=== PATIENT | male | born 1960 | race Caucasian/White ===

== ENCOUNTER 2018-05-25 13:29 | Inpatient (IN) ==
[2018-05-25 14:25] LABS: Basophils % 0.5 % (0.0-0.8); Eosinophils # 0.1 10*3/uL (0.0-0.87); Eosinophils % 1.5 % (0.00-10.9); Hematocrit 45.9 VOL% (42.0-52.0); Hemoglobin 14.3 GM/DL (14.0-18.0); Immature Granulocytes % 0.2 %; Immature Granulocytes Absolute 0.02 #; Lymphocytes # 0.9 10*3/uL (1.4-4.0); Lymphocytes % 10.3 % (21.2-54.2); Mean Corpuscular HGB Conc 31.2 GM/DL (32-36); Mean Corpuscular Hemoglobin 26 PG (27-34); Mean Corpuscular Volume 82.1 FL (87-102); Mean Platelet Volume 10.9 FL (9.6-12.0); Monocytes # 0.7 10*3/uL (0.11-0.8); Monocytes % 8.1 % (1.7-12.7); Neutrophils # 6.6 10*3/uL (1.4-7.4); Neutrophils % 79.4 % (38.7-73.9); Platelet Count 250 T/CUMM (130-400); Red Blood Count 5.59 MC/CUMM (3.8-5.5); Red Cell Distribution Width 16.6 % (9.3-17.3); White Blood Count 8.3 T/CUMM (4-12)
[2018-05-25 14:36] LABS: PT Patient Result 10.7 SECS; Partial Thromboplastin Time 28.1 SECS (0-40)
[2018-05-25 14:47] LABS: Albumin 3.5 G/DL (3.4-5.0); Bilirubin,Total 0.5 MG/DL (0.2-1.0); Calcium 8.7 MG/DL (8.5-10.1); Osmolality,Calculated 279.2 MOS/KG (273-304); Potassium 4.1 MMOL/L (3.5-5.1); Total Protein 7.6 G/DL (6.4-8.3)
[2018-05-25] MEDS ORDERED: MAGNESIUM SULF RIDER 2 GM in PREMIX 1 EACH IV PRN (16:07)
[2018-05-25] MEDS ORDERED: POTASSIUM CHLORIDE RIDER 10 MEQ in PREMIX 1 EACH IV PRN (16:07)
[2018-05-25] MEDS ORDERED: MAGNESIUM SULF RIDER 4 GM in PREMIX 1 EACH IV PRN (16:07)
[2018-05-25] MEDS ORDERED: GLUCAGON 1 MG VIAL IM PRN (16:14)
[2018-05-25] MEDS ORDERED: ACETAMINOPHEN 325 MG TABLET PO PRN (16:17)
[2018-05-25] MEDS ORDERED: ZALEPLON 5 MG CAPSULE PO PRN (16:17)
[2018-05-25] MEDS ORDERED: diphenhydrAMINE CAP 25 MG CAPSULE PO PRN (16:17)
[2018-05-25] MEDS: INSULIN REGULAR 100 UNIT/ML SUBCUT SCH ×2 (16:30→21:25)
[2018-05-25] MEDS ORDERED: INSULIN GLARGINE 100 UNIT/ML SUBCUT SCH (16:30)
[2018-05-25] MEDS ORDERED: FUROSEMIDE 40 MG/4 ML VIAL IV SCH ×2 (16:30→21:00)
[2018-05-25 16:41] LABS: Risk Ratio 2.93; VLDL CHOLESTEROL 43.2 MG/DL
[2018-05-25] MEDS ORDERED: NITROGLYCERIN SL 0.4 MG TABLET SL PRN (18:03)
[2018-05-25] MEDS: HEPARIN 5,000 UNIT/1 ML VIAL SUBCUT SCH (21:03)
[2018-05-25] MEDS: TRIAMCINOLONE 0.1% CREAM 15 GM TUBE TOP SCH (21:15)
[2018-05-25] MEDS: POTASSIUM CHLORIDE 20 MEQ TABLET PO SCH (21:16)
[2018-05-25] MEDS: FLUOCINONIDE E 0.05% CREAM 15 GM TUBE TOP SCH (21:16)
[2018-05-25] MEDS: TICAGRELOR 90 MG TABLET PO SCH (21:16)
[2018-05-25] MEDS: PREGABALIN 75 MG CAPSULE PO SCH (21:16)
[2018-05-25] MEDS: DOCUSATE SODIUM 100 MG CAPSULE PO SCH (21:16)
[2018-05-25] MEDS: guaiFENesin/DM ER 600-30 MG TABLET PO PRN (21:17)
[2018-05-25] MEDS: ALBUTEROL 2.5 MG/3 ML NEB RESP TX PRN (22:00)
[2018-05-25] MEDS: LORazepam 1 MG TABLET PO PRN (22:23)
[2018-05-26] MEDS: ALBUTEROL 2.5 MG/3 ML NEB RESP TX PRN ×6 (02:43→23:34)
[2018-05-26] MEDS: HEPARIN 5,000 UNIT/1 ML VIAL SUBCUT SCH ×3 (04:55→20:55)
[2018-05-26 05:26] LABS: Basophils % 0.5 % (0.0-0.8); Eosinophils # 0.2 10*3/uL (0.0-0.87); Eosinophils % 2.7 % (0.00-10.9); Hematocrit 42.8 VOL% (42.0-52.0); Hemoglobin 13.2 GM/DL (14.0-18.0); Immature Granulocytes % 0.1 %; Immature Granulocytes Absolute 0.01 #; Lymphocytes # 1.1 10*3/uL (1.4-4.0); Lymphocytes % 13.4 % (21.2-54.2); Mean Corpuscular HGB Conc 30.8 GM/DL (32-36); Mean Corpuscular Hemoglobin 26 PG (27-34); Mean Corpuscular Volume 83.3 FL (87-102); Mean Platelet Volume 10.8 FL (9.6-12.0); Monocytes # 0.8 10*3/uL (0.11-0.8); Monocytes % 10.6 % (1.7-12.7); Neutrophils # 5.7 10*3/uL (1.4-7.4); Neutrophils % 72.7 % (38.7-73.9); Platelet Count 236 T/CUMM (130-400); Red Blood Count 5.14 MC/CUMM (3.8-5.5); Red Cell Distribution Width 16.5 % (9.3-17.3); White Blood Count 7.8 T/CUMM (4-12)
[2018-05-26] MEDS: FUROSEMIDE 40 MG/4 ML VIAL IV SCH ×2 (05:41→14:51)
[2018-05-26 05:42] LABS: Albumin 3.4 G/DL (3.4-5.0); Bilirubin,Total 1.2 MG/DL (0.2-1.0); Calcium 8.7 MG/DL (8.5-10.1); Potassium 3.9 MMOL/L (3.5-5.1)
[2018-05-26] MEDS ORDERED: INSULIN LISPRO 100 UNIT/ML SUBCUT SCH (08:00)
[2018-05-26] MEDS: INSULIN REGULAR 100 UNIT/ML SUBCUT SCH ×4 (08:25→21:01)
[2018-05-26] MEDS: FLUTICASONE 50 MCG NASAL SPRAY 16 GM BOTTLE BOTH NARES SCH (08:55)
[2018-05-26] MEDS: PREGABALIN 75 MG CAPSULE PO SCH ×2 (08:55→21:10)
[2018-05-26] MEDS: guaiFENesin/DM ER 600-30 MG TABLET PO PRN ×2 (08:55→21:09)
[2018-05-26] MEDS: ASPIRIN CHEW 81 MG TABLET PO SCH (08:55)
[2018-05-26] MEDS: ATORVASTATIN 80 MG TABLET PO SCH (08:55)
[2018-05-26] MEDS: POTASSIUM CHLORIDE 20 MEQ TABLET PO SCH ×2 (08:56→21:09)
[2018-05-26] MEDS: metFORMIN 500 MG TABLET PO SCH ×2 (08:56→17:30)
[2018-05-26] MEDS: PANTOPRAZOLE 40 MG TABLET PO SCH (08:56)
[2018-05-26] MEDS: ISOSORBIDE MONONITRATE 30 MG TABLET PO SCH (08:57)
[2018-05-26] MEDS: LORATADINE 10 MG TABLET PO SCH (08:57)
[2018-05-26] MEDS: LORazepam 1 MG TABLET PO PRN ×2 (08:57→23:21)
[2018-05-26] MEDS: LOSARTAN 25 MG TABLET PO SCH (08:57)
[2018-05-26] MEDS: MOISTURIZING CREAM (EUCERIN) 113 GM JAR TOP SCH (08:58)
[2018-05-26] MEDS: TICAGRELOR 90 MG TABLET PO SCH ×2 (08:58→21:09)
[2018-05-26] MEDS: TRIAMCINOLONE 0.1% CREAM 15 GM TUBE TOP SCH ×2 (08:59→21:13)
[2018-05-26] MEDS: FLUOCINONIDE E 0.05% CREAM 15 GM TUBE TOP SCH ×2 (08:59→21:13)
[2018-05-26] MEDS ORDERED: METOPROLOL SUCCINATE XL 50 MG TABLET PO SCH (09:00)
[2018-05-26] MEDS: DOCUSATE SODIUM 100 MG CAPSULE PO SCH ×2 (09:01→21:09)
[2018-05-26] MEDS: HUMULIN R U-500 SQ SCH ×2 (12:38→16:36)
[2018-05-26] MEDS: MONTELUKAST 10 MG TABLET PO SCH (21:09)
[2018-05-27] MEDS: BENZONATATE 100 MG CAPSULE PO PRN (00:24)
[2018-05-27] MEDS: ALBUTEROL 2.5 MG/3 ML NEB RESP TX PRN ×5 (03:20→23:07)
[2018-05-27] MEDS: HEPARIN 5,000 UNIT/1 ML VIAL SUBCUT SCH ×2 (04:37→15:55)
[2018-05-27 05:30] LABS: Basophils % 0.5 % (0.0-0.8); Eosinophils # 0.2 10*3/uL (0.0-0.87); Eosinophils % 2.6 % (0.00-10.9); Hematocrit 44.3 VOL% (42.0-52.0); Hemoglobin 13.5 GM/DL (14.0-18.0); Immature Granulocytes % 0.5 %; Immature Granulocytes Absolute 0.03 #; Lymphocytes % 15.4 % (21.2-54.2); Mean Corpuscular HGB Conc 30.5 GM/DL (32-36); Mean Corpuscular Hemoglobin 26 PG (27-34); Mean Corpuscular Volume 83.9 FL (87-102); Mean Platelet Volume 11.2 FL (9.6-12.0); Monocytes # 0.8 10*3/uL (0.11-0.8); Monocytes % 11.8 % (1.7-12.7); Neutrophils # 4.6 10*3/uL (1.4-7.4); Neutrophils % 69.2 % (38.7-73.9); Platelet Count 211 T/CUMM (130-400); Red Blood Count 5.28 MC/CUMM (3.8-5.5); Red Cell Distribution Width 16.9 % (9.3-17.3); White Blood Count 6.6 T/CUMM (4-12)
[2018-05-27 05:45] LABS: Albumin 3.4 G/DL (3.4-5.0); Bilirubin,Total 0.8 MG/DL (0.2-1.0); Osmolality,Calculated 269.2 MOS/KG (273-304); Potassium 3.9 MMOL/L (3.5-5.1); Total Protein 7.6 G/DL (6.4-8.3)
[2018-05-27 07:06] LABS: Hypochromasia 1+; Ovalocytes Slight; Platelet Estimate Adequate
[2018-05-27] MEDS: TICAGRELOR 90 MG TABLET PO SCH ×2 (08:55→22:18)
[2018-05-27] MEDS: LORazepam 1 MG TABLET PO PRN (08:56)
[2018-05-27] MEDS: DOCUSATE SODIUM 100 MG CAPSULE PO SCH ×2 (08:57→22:18)
[2018-05-27] MEDS: NEBIVOLOL 5 MG TABLET PO SCH (08:57)
[2018-05-27] MEDS: ISOSORBIDE MONONITRATE 30 MG TABLET PO SCH (08:57)
[2018-05-27] MEDS: POTASSIUM CHLORIDE 20 MEQ TABLET PO SCH ×2 (08:57→22:18)
[2018-05-27] MEDS: LORATADINE 10 MG TABLET PO SCH (08:57)
[2018-05-27] MEDS: PREGABALIN 75 MG CAPSULE PO SCH ×2 (08:57→22:17)
[2018-05-27] MEDS: PANTOPRAZOLE 40 MG TABLET PO SCH (08:57)
[2018-05-27] MEDS: ASPIRIN CHEW 81 MG TABLET PO SCH (08:57)
[2018-05-27] MEDS: ATORVASTATIN 80 MG TABLET PO SCH (08:57)
[2018-05-27] MEDS: LOSARTAN 25 MG TABLET PO SCH (08:58)
[2018-05-27] MEDS: TRIAMCINOLONE 0.1% CREAM 15 GM TUBE TOP SCH ×2 (08:59→22:18)
[2018-05-27] MEDS: INSULIN REGULAR 100 UNIT/ML SUBCUT SCH ×4 (08:59→22:19)
[2018-05-27] MEDS: HUMULIN R U-500 SQ SCH ×3 (08:59→17:27)
[2018-05-27] MEDS: FLUTICASONE 50 MCG NASAL SPRAY 16 GM BOTTLE BOTH NARES SCH (09:00)
[2018-05-27] MEDS ORDERED: FUROSEMIDE 40 MG/4 ML VIAL IV SCH (09:00)
[2018-05-27] MEDS: FLUOCINONIDE E 0.05% CREAM 15 GM TUBE TOP SCH ×2 (09:00→22:18)
[2018-05-27] MEDS: MOISTURIZING CREAM (EUCERIN) 113 GM JAR TOP SCH (09:01)
[2018-05-27] MEDS: LORazepam 1 MG TABLET PO SCH ×2 (15:56→22:17)
[2018-05-27] MEDS: FUROSEMIDE 40 MG/4 ML VIAL IV SCH (15:56)
[2018-05-27] MEDS: MONTELUKAST 10 MG TABLET PO SCH (22:17)
[2018-05-28 05:29] LABS: Basophils # 0.1 10*3/uL (0.0-0.2); Basophils % 0.7 % (0.0-0.8); Eosinophils # 0.2 10*3/uL (0.0-0.87); Eosinophils % 2.2 % (0.00-10.9); Hematocrit 42.2 VOL% (42.0-52.0); Immature Granulocytes % 0.4 %; Immature Granulocytes Absolute 0.03 #; Lymphocytes # 0.9 10*3/uL (1.4-4.0); Mean Corpuscular HGB Conc 30.8 GM/DL (32-36); Mean Corpuscular Hemoglobin 26 PG (27-34); Mean Corpuscular Volume 84.1 FL (87-102); Mean Platelet Volume 10.9 FL (9.6-12.0); Monocytes # 0.9 10*3/uL (0.11-0.8); Monocytes % 11.8 % (1.7-12.7); Neutrophils # 5.4 10*3/uL (1.4-7.4); Neutrophils % 72.9 % (38.7-73.9); Platelet Count 217 T/CUMM (130-400); Red Blood Count 5.02 MC/CUMM (3.8-5.5); Red Cell Distribution Width 16.8 % (9.3-17.3); White Blood Count 7.4 T/CUMM (4-12)
[2018-05-28 05:31] LABS: Potassium 4.2 MMOL/L (3.5-5.1)
[2018-05-28 05:33] LABS: Albumin 3.1 G/DL (3.4-5.0); Bilirubin,Total 0.6 MG/DL (0.2-1.0); Calcium 9.1 MG/DL (8.5-10.1); Osmolality,Calculated 274.1 MOS/KG (273-304); Potassium 4.1 MMOL/L (3.5-5.1); Total Protein 7.1 G/DL (6.4-8.3)
[2018-05-28] MEDS: ALBUTEROL 2.5 MG/3 ML NEB RESP TX PRN ×5 (07:10→23:00)
[2018-05-28] MEDS: HUMULIN R U-500 SQ SCH ×3 (08:37→16:30)
[2018-05-28] MEDS: ENOXAPARIN 40 MG/0.4 ML SYRINGE SUBCUT SCH (08:38)
[2018-05-28] MEDS: INSULIN REGULAR 100 UNIT/ML SUBCUT SCH ×4 (08:38→21:21)
[2018-05-28] MEDS: FUROSEMIDE 40 MG/4 ML VIAL IV SCH ×2 (08:39→15:53)
[2018-05-28] MEDS: POTASSIUM CHLORIDE 20 MEQ TABLET PO SCH ×2 (08:39→21:22)
[2018-05-28] MEDS: PREGABALIN 75 MG CAPSULE PO SCH ×2 (08:39→21:23)
[2018-05-28] MEDS: LORazepam 1 MG TABLET PO SCH ×3 (08:40→21:22)
[2018-05-28] MEDS: NEBIVOLOL 5 MG TABLET PO SCH (08:40)
[2018-05-28] MEDS: DOCUSATE SODIUM 100 MG CAPSULE PO SCH ×2 (08:40→21:21)
[2018-05-28] MEDS: TICAGRELOR 90 MG TABLET PO SCH ×2 (08:40→21:22)
[2018-05-28] MEDS: PANTOPRAZOLE 40 MG TABLET PO SCH (08:40)
[2018-05-28] MEDS: ATORVASTATIN 80 MG TABLET PO SCH (08:40)
[2018-05-28] MEDS: LOSARTAN 25 MG TABLET PO SCH (08:40)
[2018-05-28] MEDS: LORATADINE 10 MG TABLET PO SCH (08:40)
[2018-05-28] MEDS: ASPIRIN CHEW 81 MG TABLET PO SCH (08:40)
[2018-05-28] MEDS: TRIAMCINOLONE 0.1% CREAM 15 GM TUBE TOP SCH ×2 (08:52→21:24)
[2018-05-28] MEDS: MOISTURIZING CREAM (EUCERIN) 113 GM JAR TOP SCH (08:52)
[2018-05-28] MEDS: FLUOCINONIDE E 0.05% CREAM 15 GM TUBE TOP SCH ×2 (08:52→21:24)
[2018-05-28] MEDS: FLUTICASONE 50 MCG NASAL SPRAY 16 GM BOTTLE BOTH NARES SCH (08:52)
[2018-05-28 11:10] LABS: Apearance,Urine CLEAR (Clear); Bilirubin,Urine Negative (Negative); Blood, Urine Negative (Negative); Glucose,Urine (UA) 150 mg/dL (Negative); Ketones,Urine Negative (Negative); Mucus,Urine Occasional /LPF (Occasional); Nitrite,Urine Negative (Negative); Protein,Urine Negative; RBC,Urine <1 /HPF (0-4); Urine Color Colorless (Yellow); Urine Specific Gravity 1.005 (1.001-1.035); Urine Urobilinogen < 2.0 EU/DL (0.2-1.0); WBC,Urine <1 /HPF (0-6)
[2018-05-28] MEDS ORDERED: EPINEPHrine 1 MG/ML VIAL ONE (11:11)
[2018-05-28] MEDS: MONTELUKAST 10 MG TABLET PO SCH (21:22)
[2018-05-29] MEDS: ALBUTEROL 2.5 MG/3 ML NEB RESP TX PRN ×6 (03:00→23:00)
[2018-05-29] MEDS: ONDANSETRON 4 MG/2 ML VIAL IV PRN (05:11)
[2018-05-29] MEDS: INSULIN REGULAR 100 UNIT/ML SUBCUT SCH ×4 (07:52→20:33)
[2018-05-29] MEDS: HUMULIN R U-500 SQ SCH ×3 (08:20→16:03)
[2018-05-29] MEDS: NEBIVOLOL 5 MG TABLET PO SCH (08:48)
[2018-05-29] MEDS: ASPIRIN CHEW 81 MG TABLET PO SCH (08:48)
[2018-05-29] MEDS: LORATADINE 10 MG TABLET PO SCH (08:48)
[2018-05-29] MEDS: LOSARTAN 25 MG TABLET PO SCH (08:48)
[2018-05-29] MEDS: POTASSIUM CHLORIDE 20 MEQ TABLET PO SCH ×2 (08:48→20:33)
[2018-05-29] MEDS: LORazepam 1 MG TABLET PO SCH ×2 (08:48→20:32)
[2018-05-29] MEDS: PANTOPRAZOLE 40 MG TABLET PO SCH (08:48)
[2018-05-29] MEDS: DOCUSATE SODIUM 100 MG CAPSULE PO SCH ×2 (08:48→20:33)
[2018-05-29] MEDS: TICAGRELOR 90 MG TABLET PO SCH ×2 (08:48→20:33)
[2018-05-29] MEDS: ENOXAPARIN 40 MG/0.4 ML SYRINGE SUBCUT SCH (08:51)
[2018-05-29] MEDS: FLUTICASONE 50 MCG NASAL SPRAY 16 GM BOTTLE BOTH NARES SCH (08:54)
[2018-05-29] MEDS ORDERED: metOLazone 5 MG TABLET PO ONE (09:00)
[2018-05-29] MEDS ORDERED: methylPREDNISolone SOD SUC 125 MG/2 ML VIAL IV SCH ×2 (09:00)
[2018-05-29] MEDS: FUROSEMIDE 40 MG/4 ML VIAL IV SCH ×2 (09:02→15:57)
[2018-05-29] MEDS: MOISTURIZING CREAM (EUCERIN) 113 GM JAR TOP SCH (09:07)
[2018-05-29] MEDS: TRIAMCINOLONE 0.1% CREAM 15 GM TUBE TOP SCH ×2 (09:08→20:34)
[2018-05-29] MEDS: FLUOCINONIDE E 0.05% CREAM 15 GM TUBE TOP SCH ×2 (09:08→20:34)
[2018-05-29] MEDS: PREGABALIN 75 MG CAPSULE PO SCH ×2 (09:30→20:33)
[2018-05-29] MEDS: ATORVASTATIN 80 MG TABLET PO SCH (09:34)
[2018-05-29] MEDS: LEVOFLOXACIN INJ 500 MG in PREMIX 1 EACH IV SCH (10:17)
[2018-05-29 10:32] LABS: Troponin I < 0.015 NG/ML (0.00-0.045)
[2018-05-29 13:35] LABS: Troponin I 0.015 NG/ML (0.00-0.045)
[2018-05-29] MEDS ORDERED: LORazepam 0.5 MG TABLET PO SCH (15:00)
[2018-05-29] MEDS: MONTELUKAST 10 MG TABLET PO SCH (20:32)
[2018-05-30] MEDS: ALBUTEROL 2.5 MG/3 ML NEB RESP TX PRN ×5 (02:30→21:15)
[2018-05-30 05:40] LABS: Basophils % 0.4 % (0.0-0.8); Eosinophils # 0.1 10*3/uL (0.0-0.87); Eosinophils % 0.5 % (0.00-10.9); Hematocrit 43.7 VOL% (42.0-52.0); Hemoglobin 13.4 GM/DL (14.0-18.0); Immature Granulocytes % 0.6 %; Immature Granulocytes Absolute 0.06 #; Lymphocytes # 0.8 10*3/uL (1.4-4.0); Lymphocytes % 7.5 % (21.2-54.2); Mean Corpuscular HGB Conc 30.7 GM/DL (32-36); Mean Corpuscular Hemoglobin 26 PG (27-34); Mean Corpuscular Volume 84.5 FL (87-102); Mean Platelet Volume 10.9 FL (9.6-12.0); Monocytes # 0.9 10*3/uL (0.11-0.8); Monocytes % 8.9 % (1.7-12.7); Neutrophils # 8.7 10*3/uL (1.4-7.4); Neutrophils % 82.1 % (38.7-73.9); Platelet Count 261 T/CUMM (130-400); Red Blood Count 5.17 MC/CUMM (3.8-5.5); Red Cell Distribution Width 16.7 % (9.3-17.3); White Blood Count 10.6 T/CUMM (4-12)
[2018-05-30 06:02] LABS: Calcium 9.1 MG/DL (8.5-10.1); Potassium 3.7 MMOL/L (3.5-5.1)
[2018-05-30] MEDS ORDERED: MEPERIDINE 50 MG/1 ML VIAL IM ONE (07:00)
[2018-05-30] MEDS ORDERED: GLYCOPYRROLATE 0.4 MG/2 ML VIAL IM ONE (07:00)
[2018-05-30] MEDS ORDERED: PROMETHAZINE 25 MG/1 ML VIAL IM ONE (07:00)
[2018-05-30] MEDS ORDERED: MIDAZOLAM 2 MG/2 ML VIAL ONE (07:23)
[2018-05-30] MEDS ORDERED: LIDOCAINE 2% 20 ML VIAL RESP TX ONE (07:30)
[2018-05-30] MEDS ORDERED: LIDOCAINE 1% 20 ML VIAL MISC INJ ONE (07:30)
[2018-05-30] MEDS ORDERED: LIDOCAINE 2% VISCOUS 100 ML BOTTLE SWISH/SPIT ONE (07:30)
[2018-05-30] MEDS ORDERED: MIDAZOLAM 2 MG/2 ML VIAL IV ONE (07:30)
[2018-05-30] MEDS: DEXTROSE 50% 25 GM/50 ML VIAL IV PRN (08:47)
[2018-05-30] MEDS: LEVOFLOXACIN INJ 500 MG in PREMIX 1 EACH IV SCH (10:47)
[2018-05-30] MEDS: ENOXAPARIN 40 MG/0.4 ML SYRINGE SUBCUT SCH (10:50)
[2018-05-30] MEDS: guaiFENesin/DM ER 600-30 MG TABLET PO PRN (10:50)
[2018-05-30] MEDS: BENZONATATE 100 MG CAPSULE PO PRN (10:50)
[2018-05-30] MEDS: FUROSEMIDE 40 MG/4 ML VIAL IV SCH ×2 (10:50→16:27)
[2018-05-30] MEDS: PANTOPRAZOLE 40 MG TABLET PO SCH (10:51)
[2018-05-30] MEDS: DOCUSATE SODIUM 100 MG CAPSULE PO SCH ×2 (10:51→21:48)
[2018-05-30] MEDS: ASPIRIN CHEW 81 MG TABLET PO SCH (10:51)
[2018-05-30] MEDS: methylPREDNISolone SOD SUC 40 MG/1 ML VIAL IV SCH ×2 (10:51→16:31)
[2018-05-30] MEDS: metOLazone 5 MG TABLET PO SCH (10:51)
[2018-05-30] MEDS: NEBIVOLOL 5 MG TABLET PO SCH (10:51)
[2018-05-30] MEDS: LORATADINE 10 MG TABLET PO SCH (10:52)
[2018-05-30] MEDS: LOSARTAN 25 MG TABLET PO SCH (10:52)
[2018-05-30] MEDS: TICAGRELOR 90 MG TABLET PO SCH ×2 (10:52→21:48)
[2018-05-30] MEDS: POTASSIUM CHLORIDE 20 MEQ TABLET PO SCH ×2 (10:52→21:47)
[2018-05-30] MEDS: HUMULIN R U-500 SQ SCH ×3 (10:53→16:37)
[2018-05-30] MEDS: LORazepam 1 MG TABLET PO SCH ×3 (10:53→21:48)
[2018-05-30] MEDS: FLUTICASONE 50 MCG NASAL SPRAY 16 GM BOTTLE BOTH NARES SCH (10:54)
[2018-05-30] MEDS: MOISTURIZING CREAM (EUCERIN) 113 GM JAR TOP SCH (10:54)
[2018-05-30] MEDS: FLUOCINONIDE E 0.05% CREAM 15 GM TUBE TOP SCH ×2 (10:55→21:48)
[2018-05-30] MEDS: PREGABALIN 75 MG CAPSULE PO SCH ×2 (10:55→21:48)
[2018-05-30] MEDS: TRIAMCINOLONE 0.1% CREAM 15 GM TUBE TOP SCH ×2 (10:55→21:48)
[2018-05-30] MEDS: INSULIN REGULAR 100 UNIT/ML SUBCUT SCH ×4 (10:56→21:49)
[2018-05-30] MEDS: ATORVASTATIN 80 MG TABLET PO SCH (10:56)
[2018-05-30] MEDS: ONDANSETRON 4 MG/2 ML VIAL IV PRN (11:00)
[2018-05-30] MEDS ORDERED: MAGNESIUM CITRATE 300 ML BOTTLE PO ONE (14:59)
[2018-05-30] MEDS: MONTELUKAST 10 MG TABLET PO SCH (21:47)
[2018-05-31] MEDS: methylPREDNISolone SOD SUC 40 MG/1 ML VIAL IV SCH ×3 (01:51→18:22)
[2018-05-31] MEDS: ALBUTEROL 2.5 MG/3 ML NEB RESP TX PRN ×6 (02:15→23:19)
[2018-05-31 04:29] LABS: Basophils % 0.2 % (0.0-0.8); Eosinophils % 0.1 % (0.00-10.9); Hematocrit 41.4 VOL% (42.0-52.0); Hemoglobin 12.5 GM/DL (14.0-18.0); Immature Granulocytes % 0.4 %; Immature Granulocytes Absolute 0.04 #; Lymphocytes # 0.6 10*3/uL (1.4-4.0); Lymphocytes % 5.8 % (21.2-54.2); Mean Corpuscular HGB Conc 30.2 GM/DL (32-36); Mean Corpuscular Hemoglobin 25 PG (27-34); Mean Corpuscular Volume 83.3 FL (87-102); Mean Platelet Volume 11.2 FL (9.6-12.0); Monocytes # 0.5 10*3/uL (0.11-0.8); Monocytes % 4.8 % (1.7-12.7); Neutrophils # 8.8 10*3/uL (1.4-7.4); Neutrophils % 88.7 % (38.7-73.9); Platelet Count 262 T/CUMM (130-400); Red Blood Count 4.97 MC/CUMM (3.8-5.5); Red Cell Distribution Width 16.7 % (9.3-17.3); White Blood Count 9.9 T/CUMM (4-12)
[2018-05-31 05:01] LABS: Calcium 8.9 MG/DL (8.5-10.1); Potassium 3.8 MMOL/L (3.5-5.1)
[2018-05-31] MEDS: FUROSEMIDE 40 MG/4 ML VIAL IV SCH ×2 (10:13→15:48)
[2018-05-31] MEDS: NEBIVOLOL 5 MG TABLET PO SCH (10:14)
[2018-05-31] MEDS: ENOXAPARIN 40 MG/0.4 ML SYRINGE SUBCUT SCH (10:14)
[2018-05-31] MEDS: LORazepam 1 MG TABLET PO SCH ×3 (10:15→21:11)
[2018-05-31] MEDS: metOLazone 5 MG TABLET PO SCH (10:15)
[2018-05-31] MEDS: ATORVASTATIN 80 MG TABLET PO SCH (10:15)
[2018-05-31] MEDS: ASPIRIN CHEW 81 MG TABLET PO SCH (10:16)
[2018-05-31] MEDS: BENZONATATE 100 MG CAPSULE PO PRN (10:16)
[2018-05-31] MEDS: FLUOCINONIDE E 0.05% CREAM 15 GM TUBE TOP SCH ×2 (10:16→23:53)
[2018-05-31] MEDS: PREGABALIN 75 MG CAPSULE PO SCH ×2 (10:16→21:10)
[2018-05-31] MEDS: LORATADINE 10 MG TABLET PO SCH (10:16)
[2018-05-31] MEDS: PANTOPRAZOLE 40 MG TABLET PO SCH (10:16)
[2018-05-31] MEDS: TICAGRELOR 90 MG TABLET PO SCH ×2 (10:16→21:11)
[2018-05-31] MEDS: TRIAMCINOLONE 0.1% CREAM 15 GM TUBE TOP SCH ×2 (10:17→23:53)
[2018-05-31] MEDS: POTASSIUM CHLORIDE 20 MEQ TABLET PO SCH ×2 (10:17→21:10)
[2018-05-31] MEDS: LEVOFLOXACIN INJ 500 MG in PREMIX 1 EACH IV SCH (10:17)
[2018-05-31] MEDS: DOCUSATE SODIUM 100 MG CAPSULE PO SCH ×2 (10:18→21:10)
[2018-05-31] MEDS: LOSARTAN 25 MG TABLET PO SCH (10:18)
[2018-05-31 14:10] LABS: Myeloperoxidase Antibody < 0.2 U
[2018-05-31] MEDS: FLUTICASONE 50 MCG NASAL SPRAY 16 GM BOTTLE BOTH NARES SCH (15:49)
[2018-05-31] MEDS: INSULIN REGULAR 100 UNIT/ML SUBCUT SCH ×3 (16:41→23:54)
[2018-05-31] MEDS: HUMULIN R U-500 SQ SCH ×2 (16:42→18:49)
[2018-05-31] MEDS: MOISTURIZING CREAM (EUCERIN) 113 GM JAR TOP SCH (16:42)
[2018-05-31] MEDS: MONTELUKAST 10 MG TABLET PO SCH (21:10)
[2018-05-31] MEDS: guaiFENesin/DM ER 600-30 MG TABLET PO PRN (21:21)
[2018-06-01] MEDS: methylPREDNISolone SOD SUC 40 MG/1 ML VIAL IV SCH ×3 (02:23→16:49)
[2018-06-01] MEDS: ALBUTEROL 2.5 MG/3 ML NEB RESP TX PRN ×5 (03:19→23:33)
[2018-06-01 05:03] LABS: Basophils % 0.2 % (0.0-0.8); Hematocrit 41.8 VOL% (42.0-52.0); Hemoglobin 12.9 GM/DL (14.0-18.0); Immature Granulocytes % 0.4 %; Immature Granulocytes Absolute 0.04 #; Lymphocytes # 0.7 10*3/uL (1.4-4.0); Mean Corpuscular HGB Conc 30.9 GM/DL (32-36); Mean Corpuscular Hemoglobin 26 PG (27-34); Mean Corpuscular Volume 82.6 FL (87-102); Mean Platelet Volume 10.5 FL (9.6-12.0); Monocytes # 0.7 10*3/uL (0.11-0.8); Monocytes % 6.1 % (1.7-12.7); Neutrophils # 9.4 10*3/uL (1.4-7.4); Neutrophils % 87.3 % (38.7-73.9); Platelet Count 261 T/CUMM (130-400); Red Blood Count 5.06 MC/CUMM (3.8-5.5); Red Cell Distribution Width 16.7 % (9.3-17.3); White Blood Count 10.8 T/CUMM (4-12)
[2018-06-01 05:34] LABS: Calcium 9.7 MG/DL (8.5-10.1); Potassium 3.7 MMOL/L (3.5-5.1)
[2018-06-01] MEDS: LEVOFLOXACIN INJ 500 MG in PREMIX 1 EACH IV SCH (08:17)
[2018-06-01] MEDS: ENOXAPARIN 40 MG/0.4 ML SYRINGE SUBCUT SCH (08:18)
[2018-06-01] MEDS: FUROSEMIDE 40 MG/4 ML VIAL IV SCH ×2 (08:18→16:30)
[2018-06-01] MEDS: metOLazone 5 MG TABLET PO SCH (08:19)
[2018-06-01] MEDS: guaiFENesin/DM ER 600-30 MG TABLET PO PRN (08:19)
[2018-06-01] MEDS: ATORVASTATIN 80 MG TABLET PO SCH (08:19)
[2018-06-01] MEDS: TICAGRELOR 90 MG TABLET PO SCH ×2 (08:19→21:09)
[2018-06-01] MEDS: POTASSIUM CHLORIDE 20 MEQ TABLET PO SCH ×2 (08:19→21:09)
[2018-06-01] MEDS: ASPIRIN CHEW 81 MG TABLET PO SCH (08:20)
[2018-06-01] MEDS: LORATADINE 10 MG TABLET PO SCH (08:20)
[2018-06-01] MEDS: LORazepam 1 MG TABLET PO SCH ×3 (08:20→21:09)
[2018-06-01] MEDS: DOCUSATE SODIUM 100 MG CAPSULE PO SCH ×2 (08:20→21:09)
[2018-06-01] MEDS: NEBIVOLOL 5 MG TABLET PO SCH (08:20)
[2018-06-01] MEDS: PREGABALIN 75 MG CAPSULE PO SCH ×2 (08:20→21:09)
[2018-06-01] MEDS: TRIAMCINOLONE 0.1% CREAM 15 GM TUBE TOP SCH ×2 (08:21→21:10)
[2018-06-01] MEDS: FLUTICASONE 50 MCG NASAL SPRAY 16 GM BOTTLE BOTH NARES SCH (08:21)
[2018-06-01] MEDS: MOISTURIZING CREAM (EUCERIN) 113 GM JAR TOP SCH (08:21)
[2018-06-01] MEDS: PANTOPRAZOLE 40 MG TABLET PO SCH (08:21)
[2018-06-01] MEDS: INSULIN REGULAR 100 UNIT/ML SUBCUT SCH ×4 (08:22→21:08)
[2018-06-01] MEDS: HUMULIN R U-500 SQ SCH (08:22)
[2018-06-01] MEDS: FLUOCINONIDE E 0.05% CREAM 15 GM TUBE TOP SCH ×2 (08:22→21:10)
[2018-06-01] MEDS: LOSARTAN 25 MG TABLET PO SCH (08:30)
[2018-06-01] MEDS: INSULIN REGULAR HUMAN 70 UNIT SQ SCH (18:09)
[2018-06-01] MEDS: MONTELUKAST 10 MG TABLET PO SCH (21:09)
[2018-06-02] MEDS: methylPREDNISolone SOD SUC 40 MG/1 ML VIAL IV SCH ×3 (02:40→16:57)
[2018-06-02] MEDS: ALBUTEROL 2.5 MG/3 ML NEB RESP TX PRN ×6 (03:21→23:28)
[2018-06-02 06:05] LABS: Basophils % 0.2 % (0.0-0.8); Eosinophils % 0.1 % (0.00-10.9); Hemoglobin 13.7 GM/DL (14.0-18.0); Immature Granulocytes % 0.7 %; Immature Granulocytes Absolute 0.08 #; Lymphocytes # 0.6 10*3/uL (1.4-4.0); Lymphocytes % 5.4 % (21.2-54.2); Mean Corpuscular HGB Conc 31.9 GM/DL (32-36); Mean Corpuscular Hemoglobin 26 PG (27-34); Mean Corpuscular Volume 81.9 FL (87-102); Mean Platelet Volume 10.6 FL (9.6-12.0); Monocytes # 0.9 10*3/uL (0.11-0.8); Monocytes % 7.3 % (1.7-12.7); NRBC # 0.03 10*3/uL; Neutrophils # 10.1 10*3/uL (1.4-7.4); Neutrophils % 86.3 % (38.7-73.9); Platelet Count 287 T/CUMM (130-400); Red Blood Count 5.25 MC/CUMM (3.8-5.5); Red Cell Distribution Width 16.7 % (9.3-17.3); White Blood Count 11.7 T/CUMM (4-12)
[2018-06-02 06:40] LABS: Calcium 9.6 MG/DL (8.5-10.1); Potassium 3.7 MMOL/L (3.5-5.1)
[2018-06-02] MEDS: INSULIN REGULAR HUMAN 70 UNIT SQ SCH ×3 (09:01→16:57)
[2018-06-02] MEDS: FLUTICASONE 50 MCG NASAL SPRAY 16 GM BOTTLE BOTH NARES SCH (09:01)
[2018-06-02] MEDS: INSULIN REGULAR 100 UNIT/ML SUBCUT SCH ×4 (09:01→20:57)
[2018-06-02] MEDS: FLUOCINONIDE E 0.05% CREAM 15 GM TUBE TOP SCH ×2 (09:02→20:55)
[2018-06-02] MEDS: TRIAMCINOLONE 0.1% CREAM 15 GM TUBE TOP SCH ×2 (09:02→20:55)
[2018-06-02] MEDS: MOISTURIZING CREAM (EUCERIN) 113 GM JAR TOP SCH (09:02)
[2018-06-02] MEDS: TICAGRELOR 90 MG TABLET PO SCH ×2 (09:03→20:54)
[2018-06-02] MEDS: ASPIRIN CHEW 81 MG TABLET PO SCH (09:03)
[2018-06-02] MEDS: LOSARTAN 25 MG TABLET PO SCH (09:03)
[2018-06-02] MEDS: NEBIVOLOL 5 MG TABLET PO SCH (09:03)
[2018-06-02] MEDS: POTASSIUM CHLORIDE 20 MEQ TABLET PO SCH ×2 (09:03→20:54)
[2018-06-02] MEDS: FUROSEMIDE 40 MG/4 ML VIAL IV SCH ×2 (09:03→16:57)
[2018-06-02] MEDS: LORATADINE 10 MG TABLET PO SCH (09:04)
[2018-06-02] MEDS: ENOXAPARIN 40 MG/0.4 ML SYRINGE SUBCUT SCH (09:04)
[2018-06-02] MEDS: ATORVASTATIN 80 MG TABLET PO SCH (09:04)
[2018-06-02] MEDS: PREGABALIN 75 MG CAPSULE PO SCH ×2 (09:04→20:54)
[2018-06-02] MEDS: DOCUSATE SODIUM 100 MG CAPSULE PO SCH ×2 (09:04→20:54)
[2018-06-02] MEDS: metOLazone 5 MG TABLET PO SCH (09:04)
[2018-06-02] MEDS: PANTOPRAZOLE 40 MG TABLET PO SCH (09:04)
[2018-06-02] MEDS: LORazepam 1 MG TABLET PO SCH ×3 (09:04→21:01)
[2018-06-02] MEDS: LEVOFLOXACIN INJ 500 MG in PREMIX 1 EACH IV SCH (09:05)
[2018-06-02] MEDS: MONTELUKAST 10 MG TABLET PO SCH (20:54)
[2018-06-03] MEDS: methylPREDNISolone SOD SUC 40 MG/1 ML VIAL IV SCH ×3 (02:36→17:20)
[2018-06-03] MEDS: ALBUTEROL 2.5 MG/3 ML NEB RESP TX PRN ×5 (04:12→23:32)
[2018-06-03] MEDS: DEXTROSE 50% 25 GM/50 ML VIAL IV PRN (04:37)
[2018-06-03 05:05] LABS: Basophils % 0.1 % (0.0-0.8); Eosinophils % 0.1 % (0.00-10.9); Hematocrit 43.4 VOL% (42.0-52.0); Hemoglobin 13.3 GM/DL (14.0-18.0); Immature Granulocytes % 0.9 %; Lymphocytes % 8.3 % (21.2-54.2); Mean Corpuscular HGB Conc 30.6 GM/DL (32-36); Mean Corpuscular Hemoglobin 25 PG (27-34); Mean Corpuscular Volume 82.5 FL (87-102); Mean Platelet Volume 10.7 FL (9.6-12.0); Monocytes # 1.1 10*3/uL (0.11-0.8); Monocytes % 9.4 % (1.7-12.7); NRBC # 0.02 10*3/uL; Neutrophils # 9.5 10*3/uL (1.4-7.4); Neutrophils % 81.2 % (38.7-73.9); Platelet Count 289 T/CUMM (130-400); Red Blood Count 5.26 MC/CUMM (3.8-5.5); Red Cell Distribution Width 16.6 % (9.3-17.3); White Blood Count 11.6 T/CUMM (4-12)
[2018-06-03 05:24] LABS: Calcium 9.5 MG/DL (8.5-10.1); Osmolality,Calculated 281.7 MOS/KG (273-304); Potassium 3.3 MMOL/L (3.5-5.1)
[2018-06-03] MEDS ORDERED: POTASSIUM CHLORIDE RIDER 10 MEQ in PREMIX 1 EACH IV PRN (07:38)
[2018-06-03] MEDS ORDERED: MAGNESIUM SULF RIDER 2 GM in PREMIX 1 EACH IV PRN (07:38)
[2018-06-03] MEDS ORDERED: DEXTROSE 5% 1,000 ML IV SCH (08:00)
[2018-06-03] MEDS: INSULIN REGULAR 100 UNIT/ML SUBCUT SCH ×5 (08:33→21:45)
[2018-06-03] MEDS: LEVOFLOXACIN INJ 500 MG in PREMIX 1 EACH IV SCH (09:10)
[2018-06-03] MEDS: LOSARTAN 25 MG TABLET PO SCH (09:11)
[2018-06-03] MEDS: FLUTICASONE 50 MCG NASAL SPRAY 16 GM BOTTLE BOTH NARES SCH (09:12)
[2018-06-03] MEDS: MOISTURIZING CREAM (EUCERIN) 113 GM JAR TOP SCH (09:13)
[2018-06-03] MEDS: TRIAMCINOLONE 0.1% CREAM 15 GM TUBE TOP SCH ×2 (09:13→21:46)
[2018-06-03] MEDS: FLUOCINONIDE E 0.05% CREAM 15 GM TUBE TOP SCH ×2 (09:13→21:46)
[2018-06-03] MEDS ORDERED: LIDOCAINE 1%/EPI INJ 20 ML VIAL ONE (09:47)
[2018-06-03] MEDS ORDERED: HEPARIN/NACL 0.9% 2 UNITS/ML 1,000 ML IV ONE (09:47)
[2018-06-03] MEDS: ENOXAPARIN 40 MG/0.4 ML SYRINGE SUBCUT SCH (09:55)
[2018-06-03] MEDS ORDERED: DIAZEPAM 5 MG TABLET PO ONE (10:00)
[2018-06-03] MEDS ORDERED: diphenhydrAMINE CAP 25 MG CAPSULE PO ONE (10:00)
[2018-06-03] MEDS ORDERED: fentaNYL 100 MCG/2 ML VIAL ONE (10:27)
[2018-06-03] MEDS ORDERED: MIDAZOLAM 2 MG/2 ML VIAL ONE (10:27)
[2018-06-03] MEDS: FUROSEMIDE 40 MG/4 ML VIAL IV SCH ×2 (11:57→15:56)
[2018-06-03] MEDS: PANTOPRAZOLE 40 MG TABLET PO SCH (11:58)
[2018-06-03] MEDS: DOCUSATE SODIUM 100 MG CAPSULE PO SCH ×2 (11:58→21:46)
[2018-06-03] MEDS: POTASSIUM CHLORIDE 20 MEQ TABLET PO SCH ×2 (11:58→21:46)
[2018-06-03] MEDS: metOLazone 5 MG TABLET PO SCH (11:58)
[2018-06-03] MEDS: PREGABALIN 75 MG CAPSULE PO SCH ×2 (11:58→21:46)
[2018-06-03] MEDS: TICAGRELOR 90 MG TABLET PO SCH ×2 (11:58→21:46)
[2018-06-03] MEDS: NEBIVOLOL 5 MG TABLET PO SCH (11:59)
[2018-06-03] MEDS: LORATADINE 10 MG TABLET PO SCH (11:59)
[2018-06-03] MEDS: ATORVASTATIN 80 MG TABLET PO SCH (11:59)
[2018-06-03] MEDS: ASPIRIN CHEW 81 MG TABLET PO SCH (11:59)
[2018-06-03] MEDS: DEXTROSE 5% NACL 0.45% 1,000 ML IV SCH (12:00)
[2018-06-03] MEDS: LORazepam 1 MG TABLET PO SCH ×3 (12:15→21:46)
[2018-06-03] MEDS: INSULIN REGULAR HUMAN 70 UNIT SQ SCH (12:35)
[2018-06-03] MEDS ORDERED: SACUBITRIL/VALSARTAN 49-51 MG TABLET PO SCH (21:00)
[2018-06-03] MEDS: MONTELUKAST 10 MG TABLET PO SCH (21:46)
[2018-06-04] MEDS: methylPREDNISolone SOD SUC 40 MG/1 ML VIAL IV SCH ×3 (01:00→17:06)
[2018-06-04] MEDS: ALBUTEROL 2.5 MG/3 ML NEB RESP TX PRN ×5 (03:10→20:10)
[2018-06-04 05:17] LABS: Basophils % 0.2 % (0.0-0.8); Hematocrit 44.4 VOL% (42.0-52.0); Hemoglobin 13.7 GM/DL (14.0-18.0); Immature Granulocytes % 0.9 %; Immature Granulocytes Absolute 0.11 #; Lymphocytes # 0.7 10*3/uL (1.4-4.0); Lymphocytes % 5.6 % (21.2-54.2); Mean Corpuscular HGB Conc 30.9 GM/DL (32-36); Mean Corpuscular Hemoglobin 26 PG (27-34); Mean Corpuscular Volume 83.1 FL (87-102); Monocytes % 7.9 % (1.7-12.7); Neutrophils # 10.8 10*3/uL (1.4-7.4); Neutrophils % 85.4 % (38.7-73.9); Platelet Count 283 T/CUMM (130-400); Red Blood Count 5.34 MC/CUMM (3.8-5.5); Red Cell Distribution Width 16.8 % (9.3-17.3); White Blood Count 12.7 T/CUMM (4-12)
[2018-06-04 05:43] LABS: Calcium 9.5 MG/DL (8.5-10.1); Osmolality,Calculated 281.8 MOS/KG (273-304); Potassium 3.8 MMOL/L (3.5-5.1)
[2018-06-04] MEDS: INSULIN REGULAR 100 UNIT/ML SUBCUT SCH ×4 (08:05→22:26)
[2018-06-04] MEDS: LEVOFLOXACIN INJ 500 MG in PREMIX 1 EACH IV SCH (09:26)
[2018-06-04] MEDS: ENOXAPARIN 40 MG/0.4 ML SYRINGE SUBCUT SCH (09:27)
[2018-06-04] MEDS: DOCUSATE SODIUM 100 MG CAPSULE PO SCH ×2 (10:05→22:25)
[2018-06-04] MEDS: DEXTROSE 5% NACL 0.45% 1,000 ML IV SCH ×2 (10:05→15:07)
[2018-06-04] MEDS: SPIRONOLACTONE 25 MG TABLET PO SCH (10:05)
[2018-06-04] MEDS: POTASSIUM CHLORIDE 20 MEQ TABLET PO SCH ×2 (10:05→22:24)
[2018-06-04] MEDS: NEBIVOLOL 5 MG TABLET PO SCH (10:05)
[2018-06-04] MEDS: metOLazone 5 MG TABLET PO SCH (10:06)
[2018-06-04] MEDS: LORATADINE 10 MG TABLET PO SCH (10:06)
[2018-06-04] MEDS: SACUBITRIL/VALSARTAN 49-51 MG TABLET PO SCH ×2 (10:06→22:40)
[2018-06-04] MEDS: ATORVASTATIN 80 MG TABLET PO SCH (10:06)
[2018-06-04] MEDS: PANTOPRAZOLE 40 MG TABLET PO SCH (10:06)
[2018-06-04] MEDS: PREGABALIN 75 MG CAPSULE PO SCH ×2 (10:06→22:25)
[2018-06-04] MEDS: TICAGRELOR 90 MG TABLET PO SCH ×2 (10:06→22:25)
[2018-06-04] MEDS: TRIAMCINOLONE 0.1% CREAM 15 GM TUBE TOP SCH ×2 (10:07→22:26)
[2018-06-04] MEDS: FLUTICASONE 50 MCG NASAL SPRAY 16 GM BOTTLE BOTH NARES SCH (10:07)
[2018-06-04] MEDS: FLUOCINONIDE E 0.05% CREAM 15 GM TUBE TOP SCH ×2 (10:07→22:27)
[2018-06-04] MEDS: MOISTURIZING CREAM (EUCERIN) 113 GM JAR TOP SCH (10:07)
[2018-06-04] MEDS: FUROSEMIDE 40 MG/4 ML VIAL IV SCH ×2 (10:21→17:06)
[2018-06-04] MEDS: ASPIRIN CHEW 81 MG TABLET PO SCH (10:22)
[2018-06-04] MEDS: LORazepam 1 MG TABLET PO SCH ×3 (10:26→22:40)
[2018-06-04] MEDS: MONTELUKAST 10 MG TABLET PO SCH (22:25)
[2018-06-05] MEDS: ALBUTEROL 2.5 MG/3 ML NEB RESP TX PRN ×4 (00:20→11:05)
[2018-06-05] MEDS: methylPREDNISolone SOD SUC 40 MG/1 ML VIAL IV SCH ×2 (00:30→09:44)
[2018-06-05 05:52] LABS: Basophils % 0.2 % (0.0-0.8); Hematocrit 48.1 VOL% (42.0-52.0); Hemoglobin 14.7 GM/DL (14.0-18.0); Immature Granulocytes Absolute 0.13 #; Lymphocytes # 0.8 10*3/uL (1.4-4.0); Lymphocytes % 5.8 % (21.2-54.2); Mean Corpuscular HGB Conc 30.6 GM/DL (32-36); Mean Corpuscular Hemoglobin 25 PG (27-34); Mean Corpuscular Volume 82.6 FL (87-102); Mean Platelet Volume 10.6 FL (9.6-12.0); Monocytes % 7.2 % (1.7-12.7); Neutrophils # 11.5 10*3/uL (1.4-7.4); Neutrophils % 85.8 % (38.7-73.9); Platelet Count 282 T/CUMM (130-400); Red Blood Count 5.82 MC/CUMM (3.8-5.5); Red Cell Distribution Width 17.2 % (9.3-17.3); White Blood Count 13.4 T/CUMM (4-12)
[2018-06-05 06:28] LABS: Calcium 9.9 MG/DL (8.5-10.1); Osmolality,Calculated 280.8 MOS/KG (273-304); Potassium 3.6 MMOL/L (3.5-5.1)
[2018-06-05 06:29] LABS: Calcium 9.4 MG/DL (8.5-10.1); Osmolality,Calculated 280.8 MOS/KG (273-304); Potassium 3.7 MMOL/L (3.5-5.1)
[2018-06-05] MEDS ORDERED: metOLazone 5 MG TABLET PO PRN (07:27)
[2018-06-05] MEDS ORDERED: FUROSEMIDE 40 MG TABLET PO SCH (08:00)
[2018-06-05] MEDS: PREGABALIN 75 MG CAPSULE PO SCH (09:38)
[2018-06-05] MEDS: guaiFENesin/DM ER 600-30 MG TABLET PO PRN (09:38)
[2018-06-05] MEDS: DOCUSATE SODIUM 100 MG CAPSULE PO SCH (09:38)
[2018-06-05] MEDS: SACUBITRIL/VALSARTAN 49-51 MG TABLET PO SCH (09:38)
[2018-06-05] MEDS: ATORVASTATIN 80 MG TABLET PO SCH (09:38)
[2018-06-05] MEDS: PANTOPRAZOLE 40 MG TABLET PO SCH (09:39)
[2018-06-05] MEDS: POTASSIUM CHLORIDE 20 MEQ TABLET PO SCH (09:39)
[2018-06-05] MEDS: LORATADINE 10 MG TABLET PO SCH (09:39)
[2018-06-05] MEDS: TICAGRELOR 90 MG TABLET PO SCH (09:39)
[2018-06-05] MEDS: NEBIVOLOL 5 MG TABLET PO SCH (09:40)
[2018-06-05] MEDS: ASPIRIN CHEW 81 MG TABLET PO SCH (09:40)
[2018-06-05] MEDS: ENOXAPARIN 40 MG/0.4 ML SYRINGE SUBCUT SCH (10:04)
[2018-06-05] MEDS: LEVOFLOXACIN INJ 500 MG in PREMIX 1 EACH IV SCH (10:05)
[2018-06-05] MEDS: SPIRONOLACTONE 25 MG TABLET PO SCH (10:06)
[2018-06-05] MEDS: FLUTICASONE 50 MCG NASAL SPRAY 16 GM BOTTLE BOTH NARES SCH (10:07)
[2018-06-05] MEDS: MOISTURIZING CREAM (EUCERIN) 113 GM JAR TOP SCH (10:08)
[2018-06-05] MEDS: TRIAMCINOLONE 0.1% CREAM 15 GM TUBE TOP SCH (10:09)
[2018-06-05] MEDS: FLUOCINONIDE E 0.05% CREAM 15 GM TUBE TOP SCH (10:10)
[2018-06-05] MEDS: LORazepam 1 MG TABLET PO SCH ×2 (10:11→15:06)
[2018-06-05] MEDS: INSULIN REGULAR 100 UNIT/ML SUBCUT SCH ×2 (10:12→15:06)
[2018-06-05 12:08] VITALS: BP 91/55
== END 2018-06-05 13:25 | disposition home or self-care (01) | DRG 286 ==
LOC: N.ED 13:29 → N.EDINP 18:05 → SUATTDRO 18:05 → N.2E 18:23
PROVIDERS: ADMIT Internal Medicine Geriatric Medicine; ATTEND Internal Medicine

== ENCOUNTER 2018-07-08 11:02 | Inpatient (IN) ==
[2018-07-08] MEDS ORDERED: ALBUTEROL/IPRATROPIUM 3 ML NEB RESP TX STA (13:13)
[2018-07-08] MEDS ORDERED: FUROSEMIDE 100 MG/10 ML VIAL IV STA (13:13)
[2018-07-08] MEDS ORDERED: ONDANSETRON 4 MG/2 ML VIAL IV STA (13:13)
[2018-07-08] MEDS ORDERED: ASPIRIN 325 MG TABLET PO STA (13:13)
[2018-07-08] MEDS ORDERED: MORPHINE 4 MG/1 ML VIAL IV STA (13:13)
[2018-07-08] MEDS ORDERED: ALBUTEROL/IPRATROPIUM 3 ML NEB RESP TX ONE (14:00)
[2018-07-08 14:26] LABS: Basophils % 0.5 % (0.0-0.8); Eosinophils # 0.1 10*3/uL (0.0-0.87); Eosinophils % 0.8 % (0.00-10.9); Immature Granulocytes % 0.7 %; Immature Granulocytes Absolute 0.06 #; Lymphocytes # 1.1 10*3/uL (1.4-4.0); Lymphocytes % 12.9 % (21.2-54.2); Mean Corpuscular HGB Conc 31.7 GM/DL (32-36); Mean Corpuscular Hemoglobin 26 PG (27-34); Mean Corpuscular Volume 80.4 FL (87-102); Mean Platelet Volume 10.4 FL (9.6-12.0); Monocytes # 1.1 10*3/uL (0.11-0.8); Monocytes % 13.6 % (1.7-12.7); Neutrophils % 71.5 % (38.7-73.9); Platelet Count 273 T/CUMM (130-400); Red Cell Distribution Width 16.4 % (9.3-17.3); White Blood Count 8.3 T/CUMM (4-12)
[2018-07-08 14:37] LABS: PT Patient Result 10.7 SECS
[2018-07-08 14:47] LABS: Alanine Aminotransferase 29 U/L (16-61); Albumin 3.4 G/DL (3.4-5.0); Alkaline Phosphatase 45 U/L (45-117); Aspartate Amino Transferase 13 U/L (0-37); Blood Urea Nitrogen 32 MG/DL (7-18); Calcium 9.2 MG/DL (8.5-10.1); Glucose 170 MG/DL (74-106); Osmolality,Calculated 278.2 MOS/KG (273-304); Potassium 3.4 MMOL/L (3.5-5.1); Sodium 134 MMOL/L (136-145); Total Protein 7.7 G/DL (6.4-8.3); Troponin I 0.019 NG/ML (0.00-0.045)
[2018-07-08] MEDS ORDERED: GLUCAGON 1 MG VIAL IM PRN (16:16)
[2018-07-08] MEDS ORDERED: DEXTROSE 50% 25 GM/50 ML VIAL IV PRN (16:16)
[2018-07-08] MEDS ORDERED: ONDANSETRON 4 MG/2 ML VIAL IV PRN (16:16)
[2018-07-08] MEDS ORDERED: POTASSIUM CHLORIDE 20 MEQ TABLET PO PRN (16:23)
[2018-07-08] MEDS ORDERED: ALBUTEROL 2.5 MG/3 ML NEB RESP TX PRN ×2 (16:29→19:00)
[2018-07-08] MEDS ORDERED: metOLazone 5 MG TABLET PO PRN (16:29)
[2018-07-08] MEDS ORDERED: ALBUTEROL/IPRATROPIUM 3 ML NEB RESP TX PRN (16:53)
[2018-07-08 16:59] LABS: Thyroid Stimulating Hormone 2.21 uIU/ml (0.358-3.74); VLDL CHOLESTEROL 34.4 MG/DL
[2018-07-08 18:01] LABS: Apearance,Urine CLEAR (Clear); Bilirubin,Urine Negative (Negative); Blood, Urine Negative (Negative); Glucose,Urine (UA) Negative (Negative); Hyaline Casts,Urine 8 /LPF (0-3); Ketones,Urine Negative (Negative); Nitrite,Urine Negative (Negative); Protein,Urine Negative; RBC,Urine 1 /HPF (0-4); Urine Color Yellow (Yellow); Urine Specific Gravity 1.012 (1.001-1.035); Urine Urobilinogen < 2.0 EU/DL (0.2-1.0); WBC,Urine <1 /HPF (0-6)
[2018-07-08] MEDS: INSULIN LISPRO 100 UNIT/ML SUBCUT SCH (18:52)
[2018-07-08] MEDS: ENOXAPARIN 40 MG/0.4 ML SYRINGE SUBCUT SCH (18:53)
[2018-07-08] MEDS: LORazepam 1 MG TABLET PO PRN ×2 (19:05→22:30)
[2018-07-08] MEDS: ALBUTEROL/IPRATROPIUM 3 ML NEB RESP TX SCH (19:45)
[2018-07-08] MEDS: DOCUSATE SODIUM 100 MG CAPSULE PO PRN (22:29)
[2018-07-08] MEDS: POTASSIUM CHLORIDE 20 MEQ TABLET PO SCH (22:29)
[2018-07-08] MEDS: ASPIRIN EC 81 MG TABLET PO SCH (22:29)
[2018-07-08] MEDS: LORATADINE 10 MG TABLET PO SCH (22:29)
[2018-07-08] MEDS: TICAGRELOR 90 MG TABLET PO SCH (22:29)
[2018-07-08] MEDS: MONTELUKAST 10 MG TABLET PO SCH (22:29)
[2018-07-08] MEDS: PREGABALIN 75 MG CAPSULE PO SCH (22:29)
[2018-07-08] MEDS: SACUBITRIL/VALSARTAN 49-51 MG TABLET PO SCH (22:30)
[2018-07-08] MEDS: TRIAMCINOLONE 0.1% CREAM 15 GM TUBE TOP SCH (23:31)
[2018-07-08] MEDS: FLUOCINONIDE E 0.05% CREAM 15 GM TUBE TOP SCH (23:31)
[2018-07-09] MEDS: INSULIN LISPRO 100 UNIT/ML SUBCUT SCH (01:14)
[2018-07-09 04:42] LABS: Basophils % 0.4 % (0.0-0.8); Eosinophils # 0.1 10*3/uL (0.0-0.87); Eosinophils % 1.2 % (0.00-10.9); Hematocrit 38.5 VOL% (42.0-52.0); Immature Granulocytes % 0.8 %; Immature Granulocytes Absolute 0.06 #; Lymphocytes # 0.9 10*3/uL (1.4-4.0); Lymphocytes % 11.3 % (21.2-54.2); Mean Corpuscular HGB Conc 31.2 GM/DL (32-36); Mean Corpuscular Hemoglobin 26 PG (27-34); Mean Corpuscular Volume 81.9 FL (87-102); Mean Platelet Volume 10.6 FL (9.6-12.0); Monocytes # 1.1 10*3/uL (0.11-0.8); Neutrophils # 5.4 10*3/uL (1.4-7.4); Neutrophils % 72.3 % (38.7-73.9); Platelet Count 256 T/CUMM (130-400); Red Cell Distribution Width 16.4 % (9.3-17.3); White Blood Count 7.5 T/CUMM (4-12)
[2018-07-09 04:57] LABS: Calcium 8.9 MG/DL (8.5-10.1); Osmolality,Calculated 281.1 MOS/KG (273-304); Potassium 3.3 MMOL/L (3.5-5.1)
[2018-07-09] MEDS: ALBUTEROL/IPRATROPIUM 3 ML NEB RESP TX SCH ×4 (07:15→18:50)
[2018-07-09] MEDS ORDERED: UREA TOP SCH (09:00)
[2018-07-09] MEDS ORDERED: NEBIVOLOL 5 MG TABLET PO SCH (09:00)
[2018-07-09] MEDS ORDERED: Glycopyrrolate/Formoterol Fum [Bevespi Aerosphere Inhaler] INH SCH (09:00)
[2018-07-09] MEDS ORDERED: Liraglutide [Victoza 3-Pak] 1.8 MG SUBCUT SCH (09:00)
[2018-07-09] MEDS: MOISTURIZING CREAM (EUCERIN) 113 GM JAR TOP SCH (09:36)
[2018-07-09] MEDS: FLUOCINONIDE E 0.05% CREAM 15 GM TUBE TOP SCH ×2 (09:36→21:25)
[2018-07-09] MEDS: FLUTICASONE 50 MCG NASAL SPRAY 16 GM BOTTLE BOTH NARES SCH (09:36)
[2018-07-09] MEDS: ATORVASTATIN 80 MG TABLET PO SCH (09:37)
[2018-07-09] MEDS: TRIAMCINOLONE 0.1% CREAM 15 GM TUBE TOP SCH ×2 (09:37→21:25)
[2018-07-09] MEDS: PREGABALIN 75 MG CAPSULE PO SCH ×2 (09:37→21:19)
[2018-07-09] MEDS: TICAGRELOR 90 MG TABLET PO SCH ×2 (09:38→21:18)
[2018-07-09] MEDS: PANTOPRAZOLE 40 MG TABLET PO SCH (09:38)
[2018-07-09] MEDS: FUROSEMIDE 40 MG TABLET PO SCH ×2 (09:38→17:10)
[2018-07-09] MEDS: SACUBITRIL/VALSARTAN 49-51 MG TABLET PO SCH ×2 (09:38→21:19)
[2018-07-09] MEDS: DOCUSATE SODIUM 100 MG CAPSULE PO PRN (09:38)
[2018-07-09] MEDS: SPIRONOLACTONE 25 MG TABLET PO SCH (09:39)
[2018-07-09] MEDS: POTASSIUM CHLORIDE 20 MEQ TABLET PO SCH ×2 (11:14→21:19)
[2018-07-09] MEDS: INSULIN REGULAR 500 UNIT/ML SUBCUT SCH ×3 (11:33→21:26)
[2018-07-09] MEDS: ACETAMINOPHEN 325 MG TABLET PO PRN (14:49)
[2018-07-09] MEDS: ENOXAPARIN 40 MG/0.4 ML SYRINGE SUBCUT SCH (17:10)
[2018-07-09] MEDS: CARVEDILOL 3.125 MG TABLET PO SCH (17:10)
[2018-07-09] MEDS: ASPIRIN EC 81 MG TABLET PO SCH (21:18)
[2018-07-09] MEDS: LORATADINE 10 MG TABLET PO SCH (21:19)
[2018-07-09] MEDS: MONTELUKAST 10 MG TABLET PO SCH (21:20)
[2018-07-09] MEDS: LORazepam 1 MG TABLET PO PRN (21:22)
[2018-07-10] MEDS: ALBUTEROL/IPRATROPIUM 3 ML NEB RESP TX SCH ×4 (00:40→19:24)
[2018-07-10] MEDS: SACUBITRIL/VALSARTAN 49-51 MG TABLET PO SCH ×2 (09:08→22:01)
[2018-07-10] MEDS: POTASSIUM CHLORIDE 20 MEQ TABLET PO SCH ×2 (09:09→22:02)
[2018-07-10] MEDS: ATORVASTATIN 80 MG TABLET PO SCH (09:09)
[2018-07-10] MEDS: FUROSEMIDE 40 MG TABLET PO SCH ×2 (09:09→16:26)
[2018-07-10] MEDS: CARVEDILOL 3.125 MG TABLET PO SCH ×2 (09:10→17:40)
[2018-07-10] MEDS: DOCUSATE SODIUM 100 MG CAPSULE PO PRN (09:10)
[2018-07-10] MEDS: PANTOPRAZOLE 40 MG TABLET PO SCH (09:10)
[2018-07-10] MEDS: SPIRONOLACTONE 25 MG TABLET PO SCH (09:10)
[2018-07-10] MEDS: PREGABALIN 75 MG CAPSULE PO SCH ×2 (09:10→22:01)
[2018-07-10] MEDS: TICAGRELOR 90 MG TABLET PO SCH ×2 (09:10→22:02)
[2018-07-10] MEDS: FLUOCINONIDE E 0.05% CREAM 15 GM TUBE TOP SCH ×2 (09:11→22:10)
[2018-07-10] MEDS: TRIAMCINOLONE 0.1% CREAM 15 GM TUBE TOP SCH ×2 (09:11→22:10)
[2018-07-10] MEDS: FLUTICASONE 50 MCG NASAL SPRAY 16 GM BOTTLE BOTH NARES SCH (09:11)
[2018-07-10] MEDS: MOISTURIZING CREAM (EUCERIN) 113 GM JAR TOP SCH (09:11)
[2018-07-10] MEDS: INSULIN REGULAR 500 UNIT/ML SUBCUT SCH ×4 (09:12→22:11)
[2018-07-10 09:56] LABS: Calcium 8.7 MG/DL (8.5-10.1); Osmolality,Calculated 278.4 MOS/KG (273-304); Potassium 3.7 MMOL/L (3.5-5.1)
[2018-07-10] MEDS: LORazepam 1 MG TABLET PO PRN ×3 (10:39→22:01)
[2018-07-10] MEDS: methylPREDNISolone SOD SUC 40 MG/1 ML VIAL IV SCH ×2 (15:28→22:02)
[2018-07-10] MEDS: ENOXAPARIN 40 MG/0.4 ML SYRINGE SUBCUT SCH (16:26)
[2018-07-10] MEDS: ASPIRIN EC 81 MG TABLET PO SCH (22:01)
[2018-07-10] MEDS: LORATADINE 10 MG TABLET PO SCH (22:02)
[2018-07-10] MEDS: MONTELUKAST 10 MG TABLET PO SCH (22:02)
[2018-07-11] MEDS: ALBUTEROL/IPRATROPIUM 3 ML NEB RESP TX SCH ×4 (00:07→19:59)
[2018-07-11 04:52] LABS: Basophils % 0.2 % (0.0-0.8); Hematocrit 39.1 VOL% (42.0-52.0); Hemoglobin 12.3 GM/DL (14.0-18.0); Immature Granulocytes % 0.8 %; Immature Granulocytes Absolute 0.07 #; Lymphocytes # 0.6 10*3/uL (1.4-4.0); Lymphocytes % 6.2 % (21.2-54.2); Mean Corpuscular HGB Conc 31.5 GM/DL (32-36); Mean Corpuscular Hemoglobin 26 PG (27-34); Mean Platelet Volume 10.7 FL (9.6-12.0); Monocytes # 0.2 10*3/uL (0.11-0.8); Monocytes % 2.7 % (1.7-12.7); Neutrophils # 8.1 10*3/uL (1.4-7.4); Neutrophils % 90.1 % (38.7-73.9); Platelet Count 262 T/CUMM (130-400); Red Blood Count 4.83 MC/CUMM (3.8-5.5); Red Cell Distribution Width 16.2 % (9.3-17.3)
[2018-07-11] MEDS: methylPREDNISolone SOD SUC 40 MG/1 ML VIAL IV SCH ×3 (05:00→22:26)
[2018-07-11 05:10] LABS: Calcium 9.1 MG/DL (8.5-10.1); Osmolality,Calculated 279.2 MOS/KG (273-304)
[2018-07-11] MEDS: SACUBITRIL/VALSARTAN 49-51 MG TABLET PO SCH ×2 (08:33→22:20)
[2018-07-11] MEDS: metOLazone 5 MG TABLET PO SCH (08:33)
[2018-07-11] MEDS: CARVEDILOL 3.125 MG TABLET PO SCH ×2 (08:33→17:51)
[2018-07-11] MEDS: FUROSEMIDE 40 MG TABLET PO SCH ×2 (08:33→17:51)
[2018-07-11] MEDS: SPIRONOLACTONE 25 MG TABLET PO SCH (08:33)
[2018-07-11] MEDS: PREGABALIN 75 MG CAPSULE PO SCH ×2 (08:33→22:21)
[2018-07-11] MEDS: ATORVASTATIN 80 MG TABLET PO SCH (08:33)
[2018-07-11] MEDS: PANTOPRAZOLE 40 MG TABLET PO SCH (08:34)
[2018-07-11] MEDS: MOISTURIZING CREAM (EUCERIN) 113 GM JAR TOP SCH (08:34)
[2018-07-11] MEDS: POTASSIUM CHLORIDE 20 MEQ TABLET PO SCH ×2 (08:34→22:21)
[2018-07-11] MEDS: INSULIN REGULAR 500 UNIT/ML SUBCUT SCH ×4 (08:34→23:50)
[2018-07-11] MEDS: FLUOCINONIDE E 0.05% CREAM 15 GM TUBE TOP SCH ×2 (08:34→23:50)
[2018-07-11] MEDS: TICAGRELOR 90 MG TABLET PO SCH ×2 (08:34→22:21)
[2018-07-11] MEDS: TRIAMCINOLONE 0.1% CREAM 15 GM TUBE TOP SCH ×2 (08:34→23:49)
[2018-07-11] MEDS: FLUTICASONE 50 MCG NASAL SPRAY 16 GM BOTTLE BOTH NARES SCH (08:34)
[2018-07-11] MEDS: NITROGLYCERIN SL 0.4 MG TABLET SL PRN ×2 (15:32→17:37)
[2018-07-11] MEDS ORDERED: MAGNESIUM HYDROXIDE SUSP 30 ML UDCUP PO PRN (15:44)
[2018-07-11] MEDS ORDERED: SODIUM PHOSPHATE ENEMA 133 ML BOTTLE RECTAL PRN (15:45)
[2018-07-11] MEDS ORDERED: ASPIRIN CHEW 81 MG TABLET PO ONE ×2 (17:30→17:35)
[2018-07-11] MEDS ORDERED: ASPIRIN 325 MG TABLET ONE (17:30)
[2018-07-11] MEDS ORDERED: MORPHINE 4 MG/1 ML VIAL IV PRN (17:35)
[2018-07-11] MEDS: LORazepam 1 MG TABLET PO PRN ×2 (17:50→22:20)
[2018-07-11] MEDS: ENOXAPARIN 40 MG/0.4 ML SYRINGE SUBCUT SCH (17:54)
[2018-07-11] MEDS: LORATADINE 10 MG TABLET PO SCH (22:19)
[2018-07-11] MEDS: DOCUSATE SODIUM 100 MG CAPSULE PO PRN (22:19)
[2018-07-11] MEDS: ACETAMINOPHEN 325 MG TABLET PO PRN (22:20)
[2018-07-11] MEDS: MONTELUKAST 10 MG TABLET PO SCH (22:20)
[2018-07-11] MEDS: ASPIRIN EC 81 MG TABLET PO SCH (22:21)
[2018-07-11] MEDS: BENZONATATE 100 MG CAPSULE PO PRN (22:34)
[2018-07-12] MEDS: ALBUTEROL/IPRATROPIUM 3 ML NEB RESP TX SCH ×4 (01:11→19:41)
[2018-07-12] MEDS: methylPREDNISolone SOD SUC 40 MG/1 ML VIAL IV SCH ×3 (04:24→21:33)
[2018-07-12 06:31] LABS: Basophils % 0.2 % (0.0-0.8); Eosinophils % 0.1 % (0.00-10.9); Hematocrit 39.8 VOL% (42.0-52.0); Hemoglobin 12.5 GM/DL (14.0-18.0); Lymphocytes % 3.7 % (21.2-54.2); Mean Corpuscular HGB Conc 31.4 GM/DL (32-36); Mean Corpuscular Hemoglobin 26 PG (27-34); Mean Corpuscular Volume 81.9 FL (87-102); Mean Platelet Volume 10.6 FL (9.6-12.0); Monocytes % 4.7 % (1.7-12.7); Neutrophils % 90.3 % (38.7-73.9); Platelet Count 296 T/CUMM (130-400); Red Blood Count 4.86 MC/CUMM (3.8-5.5); Red Cell Distribution Width 16.5 % (9.3-17.3); White Blood Count 15.3 T/CUMM (4-12)
[2018-07-12 06:32] LABS: Immature Granulocytes Absolute 0.16 #; Lymphocytes # 0.6 10*3/uL (1.4-4.0); Monocytes # 0.7 10*3/uL (0.11-0.8); Neutrophils # 13.8 10*3/uL (1.4-7.4)
[2018-07-12 06:52] LABS: Hypochromasia 1+; Lymphocytes 1 % (20-55); Platelet Estimate Adequate; Segmented Neutrophils 91 % (50-85); Total Cells Counted 100
[2018-07-12 07:00] LABS: Calcium 9.2 MG/DL (8.5-10.1); Potassium 4.4 MMOL/L (3.5-5.1)
[2018-07-12] MEDS ORDERED: PROMETHAZINE 25 MG/1 ML VIAL IM ONE (07:30)
[2018-07-12] MEDS ORDERED: GLYCOPYRROLATE 0.4 MG/2 ML VIAL IM ONE (07:30)
[2018-07-12] MEDS ORDERED: MEPERIDINE 50 MG/1 ML VIAL IM ONE (07:30)
[2018-07-12] MEDS ORDERED: LIDOCAINE 1% 20 ML VIAL MISC INJ ONE (08:00)
[2018-07-12] MEDS ORDERED: MIDAZOLAM 2 MG/2 ML VIAL IV ONE (08:00)
[2018-07-12] MEDS ORDERED: LIDOCAINE 2% VISCOUS 100 ML BOTTLE SWISH/SPIT ONE (08:00)
[2018-07-12] MEDS ORDERED: LIDOCAINE 2% 20 ML VIAL RESP TX ONE (08:00)
[2018-07-12] MEDS: INSULIN REGULAR 500 UNIT/ML SUBCUT SCH ×4 (08:14→21:38)
[2018-07-12] MEDS ORDERED: MIDAZOLAM 2 MG/2 ML VIAL ONE (10:07)
[2018-07-12] MEDS: CEFTAROLINE 600 MG in SODIUM CHLORIDE 0.9% 100 ML IV SCH ×2 (11:30→21:39)
[2018-07-12] MEDS: SACUBITRIL/VALSARTAN 49-51 MG TABLET PO SCH ×2 (11:31→21:32)
[2018-07-12] MEDS: SPIRONOLACTONE 25 MG TABLET PO SCH (11:31)
[2018-07-12] MEDS: PREGABALIN 75 MG CAPSULE PO SCH ×2 (11:31→21:33)
[2018-07-12] MEDS: ATORVASTATIN 80 MG TABLET PO SCH (11:32)
[2018-07-12] MEDS: CARVEDILOL 3.125 MG TABLET PO SCH ×2 (11:32→17:47)
[2018-07-12] MEDS: metOLazone 5 MG TABLET PO SCH (11:32)
[2018-07-12] MEDS: POTASSIUM CHLORIDE 20 MEQ TABLET PO SCH ×2 (11:32→21:33)
[2018-07-12] MEDS: BENZONATATE 100 MG CAPSULE PO PRN (11:35)
[2018-07-12] MEDS: FLUTICASONE 50 MCG NASAL SPRAY 16 GM BOTTLE BOTH NARES SCH (11:37)
[2018-07-12] MEDS: TRIAMCINOLONE 0.1% CREAM 15 GM TUBE TOP SCH ×2 (11:37→21:37)
[2018-07-12] MEDS: DOCUSATE SODIUM 100 MG CAPSULE PO PRN (11:38)
[2018-07-12] MEDS: MOISTURIZING CREAM (EUCERIN) 113 GM JAR TOP SCH (11:39)
[2018-07-12] MEDS: PANTOPRAZOLE 40 MG TABLET PO SCH (11:40)
[2018-07-12] MEDS: FLUOCINONIDE E 0.05% CREAM 15 GM TUBE TOP SCH ×2 (11:40→21:38)
[2018-07-12] MEDS: TICAGRELOR 90 MG TABLET PO SCH ×2 (11:42→21:33)
[2018-07-12] MEDS: FUROSEMIDE 40 MG TABLET PO SCH ×2 (11:42→17:47)
[2018-07-12] MEDS: LORazepam 1 MG TABLET PO PRN (17:47)
[2018-07-12] MEDS: ENOXAPARIN 40 MG/0.4 ML SYRINGE SUBCUT SCH (17:48)
[2018-07-12] MEDS: METHOCARBAMOL 500 MG TABLET PO PRN (18:33)
[2018-07-12] MEDS: NITROGLYCERIN SL 0.4 MG TABLET SL PRN (18:51)
[2018-07-12] MEDS: ACETAMINOPHEN 325 MG TABLET PO PRN (18:55)
[2018-07-12] MEDS: MONTELUKAST 10 MG TABLET PO SCH (21:32)
[2018-07-12] MEDS: LORATADINE 10 MG TABLET PO SCH (21:33)
[2018-07-12] MEDS: ASPIRIN EC 81 MG TABLET PO SCH (21:33)
[2018-07-13] MEDS: ALBUTEROL/IPRATROPIUM 3 ML NEB RESP TX SCH ×4 (00:25→20:14)
[2018-07-13 04:53] LABS: Basophils % 0.1 % (0.0-0.8); Hematocrit 40.7 VOL% (42.0-52.0); Hemoglobin 12.6 GM/DL (14.0-18.0); Immature Granulocytes % 1.2 %; Immature Granulocytes Absolute 0.17 #; Lymphocytes # 0.6 10*3/uL (1.4-4.0); Lymphocytes % 4.3 % (21.2-54.2); Mean Corpuscular Hemoglobin 26 PG (27-34); Mean Corpuscular Volume 82.4 FL (87-102); Mean Platelet Volume 10.5 FL (9.6-12.0); Monocytes # 0.7 10*3/uL (0.11-0.8); Monocytes % 5.3 % (1.7-12.7); Neutrophils # 12.3 10*3/uL (1.4-7.4); Neutrophils % 89.1 % (38.7-73.9); Platelet Count 287 T/CUMM (130-400); Red Blood Count 4.94 MC/CUMM (3.8-5.5); Red Cell Distribution Width 16.7 % (9.3-17.3); White Blood Count 13.8 T/CUMM (4-12)
[2018-07-13 05:14] LABS: Calcium 8.9 MG/DL (8.5-10.1); Osmolality,Calculated 283.7 MOS/KG (273-304); Potassium 4.1 MMOL/L (3.5-5.1)
[2018-07-13] MEDS: methylPREDNISolone SOD SUC 40 MG/1 ML VIAL IV SCH ×3 (05:17→20:50)
[2018-07-13 05:22] LABS: Band Neutrophils 2 % (0-10); Lymphocytes 6 % (20-55); Platelet Estimate Adequate; Segmented Neutrophils 91 % (50-85); Total Cells Counted 100
[2018-07-13] MEDS: INSULIN REGULAR 500 UNIT/ML SUBCUT SCH ×4 (08:18→22:26)
[2018-07-13] MEDS: ATORVASTATIN 80 MG TABLET PO SCH (09:18)
[2018-07-13] MEDS: CARVEDILOL 3.125 MG TABLET PO SCH ×2 (09:18→16:53)
[2018-07-13] MEDS: SACUBITRIL/VALSARTAN 49-51 MG TABLET PO SCH ×2 (09:18→20:50)
[2018-07-13] MEDS: PREGABALIN 75 MG CAPSULE PO SCH ×2 (09:18→20:51)
[2018-07-13] MEDS: metOLazone 5 MG TABLET PO SCH (09:18)
[2018-07-13] MEDS: SPIRONOLACTONE 25 MG TABLET PO SCH (09:19)
[2018-07-13] MEDS: PANTOPRAZOLE 40 MG TABLET PO SCH (09:19)
[2018-07-13] MEDS: TICAGRELOR 90 MG TABLET PO SCH ×2 (09:19→20:52)
[2018-07-13] MEDS: CEFTAROLINE 600 MG in SODIUM CHLORIDE 0.9% 100 ML IV SCH ×2 (09:19→20:49)
[2018-07-13] MEDS: FUROSEMIDE 40 MG TABLET PO SCH ×2 (09:19→16:53)
[2018-07-13] MEDS: MOISTURIZING CREAM (EUCERIN) 113 GM JAR TOP SCH (09:43)
[2018-07-13] MEDS: FLUTICASONE 50 MCG NASAL SPRAY 16 GM BOTTLE BOTH NARES SCH (09:43)
[2018-07-13] MEDS: POTASSIUM CHLORIDE 20 MEQ TABLET PO SCH ×2 (09:44→20:51)
[2018-07-13] MEDS: TRIAMCINOLONE 0.1% CREAM 15 GM TUBE TOP SCH ×2 (09:44→20:52)
[2018-07-13] MEDS: FLUOCINONIDE E 0.05% CREAM 15 GM TUBE TOP SCH ×2 (09:44→20:52)
[2018-07-13] MEDS: METHOCARBAMOL 500 MG TABLET PO PRN ×2 (10:58→21:14)
[2018-07-13] MEDS: ENOXAPARIN 40 MG/0.4 ML SYRINGE SUBCUT SCH (16:59)
[2018-07-13] MEDS: MONTELUKAST 10 MG TABLET PO SCH (20:51)
[2018-07-13] MEDS: LORATADINE 10 MG TABLET PO SCH (20:52)
[2018-07-13] MEDS: ASPIRIN EC 81 MG TABLET PO SCH (20:52)
[2018-07-13] MEDS: LORazepam 1 MG TABLET PO PRN (21:13)
[2018-07-14] MEDS: ALBUTEROL/IPRATROPIUM 3 ML NEB RESP TX SCH ×4 (00:26→19:41)
[2018-07-14] MEDS: methylPREDNISolone SOD SUC 40 MG/1 ML VIAL IV SCH ×2 (04:50→17:27)
[2018-07-14 05:04] LABS: Basophils % 0.1 % (0.0-0.8); Eosinophils % 0.1 % (0.00-10.9); Hematocrit 41.5 VOL% (42.0-52.0); Hemoglobin 12.7 GM/DL (14.0-18.0); Immature Granulocytes % 1.8 %; Immature Granulocytes Absolute 0.26 #; Lymphocytes # 0.7 10*3/uL (1.4-4.0); Lymphocytes % 4.7 % (21.2-54.2); Mean Corpuscular HGB Conc 30.6 GM/DL (32-36); Mean Corpuscular Hemoglobin 25 PG (27-34); Mean Corpuscular Volume 82.8 FL (87-102); Mean Platelet Volume 10.3 FL (9.6-12.0); Monocytes # 1.3 10*3/uL (0.11-0.8); NRBC # 0.02 10*3/uL; Neutrophils # 12.5 10*3/uL (1.4-7.4); Neutrophils % 84.3 % (38.7-73.9); Platelet Count 286 T/CUMM (130-400); Red Blood Count 5.01 MC/CUMM (3.8-5.5); Red Cell Distribution Width 16.9 % (9.3-17.3); White Blood Count 14.8 T/CUMM (4-12)
[2018-07-14 05:27] LABS: Osmolality,Calculated 278.7 MOS/KG (273-304); Potassium 4.1 MMOL/L (3.5-5.1)
[2018-07-14 06:21] LABS: Lymphocytes 5 % (20-55); Segmented Neutrophils 85 % (50-85); Total Cells Counted 100
[2018-07-14 06:22] LABS: Anisocytosis 1+; Hypochromasia Slight; Microcytosis Slight; Platelet Estimate Adequate
[2018-07-14] MEDS: INSULIN REGULAR 500 UNIT/ML SUBCUT SCH ×4 (08:51→21:07)
[2018-07-14] MEDS: CARVEDILOL 3.125 MG TABLET PO SCH ×2 (08:55→17:27)
[2018-07-14] MEDS: POTASSIUM CHLORIDE 20 MEQ TABLET PO SCH ×2 (08:56→21:07)
[2018-07-14] MEDS: metOLazone 5 MG TABLET PO SCH (08:56)
[2018-07-14] MEDS: PANTOPRAZOLE 40 MG TABLET PO SCH (08:56)
[2018-07-14] MEDS: TICAGRELOR 90 MG TABLET PO SCH ×2 (08:56→21:07)
[2018-07-14] MEDS: PREGABALIN 75 MG CAPSULE PO SCH ×2 (08:56→21:06)
[2018-07-14] MEDS: FUROSEMIDE 40 MG TABLET PO SCH ×2 (08:56→17:27)
[2018-07-14] MEDS: SACUBITRIL/VALSARTAN 49-51 MG TABLET PO SCH ×2 (08:57→21:05)
[2018-07-14] MEDS: ATORVASTATIN 80 MG TABLET PO SCH (08:57)
[2018-07-14] MEDS: MOISTURIZING CREAM (EUCERIN) 113 GM JAR TOP SCH (08:57)
[2018-07-14] MEDS: DOCUSATE SODIUM 100 MG CAPSULE PO PRN (08:57)
[2018-07-14] MEDS: CEFTAROLINE 600 MG in SODIUM CHLORIDE 0.9% 100 ML IV SCH ×2 (08:57→21:14)
[2018-07-14] MEDS: SPIRONOLACTONE 25 MG TABLET PO SCH (08:57)
[2018-07-14] MEDS: TRIAMCINOLONE 0.1% CREAM 15 GM TUBE TOP SCH ×2 (08:58→21:08)
[2018-07-14] MEDS: FLUTICASONE 50 MCG NASAL SPRAY 16 GM BOTTLE BOTH NARES SCH (08:58)
[2018-07-14] MEDS: FLUOCINONIDE E 0.05% CREAM 15 GM TUBE TOP SCH ×2 (08:58→21:08)
[2018-07-14] MEDS: LORazepam 1 MG TABLET PO PRN ×2 (09:04→21:06)
[2018-07-14] MEDS ORDERED: VANCOMYCIN INJ 1,000 MG in SODIUM CHLORIDE 0.9% 250 ML IV ONE (11:01)
[2018-07-14] MEDS ORDERED: VANCOMYCIN 500 MG VIAL IRRIG ONE (11:01)
[2018-07-14] MEDS: ENOXAPARIN 40 MG/0.4 ML SYRINGE SUBCUT SCH (17:26)
[2018-07-14] MEDS: MONTELUKAST 10 MG TABLET PO SCH (21:05)
[2018-07-14] MEDS: ASPIRIN EC 81 MG TABLET PO SCH (21:06)
[2018-07-14] MEDS: LORATADINE 10 MG TABLET PO SCH (21:06)
[2018-07-15] MEDS: ALBUTEROL/IPRATROPIUM 3 ML NEB RESP TX SCH ×4 (01:14→18:59)
[2018-07-15] MEDS: methylPREDNISolone SOD SUC 40 MG/1 ML VIAL IV SCH ×2 (04:53→20:09)
[2018-07-15 05:34] LABS: Basophils % 0.3 % (0.0-0.8); Hematocrit 43.6 VOL% (42.0-52.0); Hemoglobin 13.5 GM/DL (14.0-18.0); Immature Granulocytes % 1.9 %; Immature Granulocytes Absolute 0.29 #; Lymphocytes # 1.1 10*3/uL (1.4-4.0); Lymphocytes % 7.2 % (21.2-54.2); Mean Corpuscular Hemoglobin 26 PG (27-34); Mean Corpuscular Volume 82.7 FL (87-102); Mean Platelet Volume 10.4 FL (9.6-12.0); Monocytes # 1.6 10*3/uL (0.11-0.8); Monocytes % 10.7 % (1.7-12.7); NRBC # 0.07 10*3/uL; Neutrophils # 12.2 10*3/uL (1.4-7.4); Neutrophils % 79.9 % (38.7-73.9); Platelet Count 282 T/CUMM (130-400); Red Blood Count 5.27 MC/CUMM (3.8-5.5); White Blood Count 15.3 T/CUMM (4-12)
[2018-07-15 06:03] LABS: Osmolality,Calculated 280.8 MOS/KG (273-304); Potassium 4.3 MMOL/L (3.5-5.1)
[2018-07-15 06:04] LABS: Calcium 9.1 MG/DL (8.5-10.1); Osmolality,Calculated 282.7 MOS/KG (273-304); Potassium 4.3 MMOL/L (3.5-5.1)
[2018-07-15] MEDS ORDERED: VANCOMYCIN 500 MG VIAL IRRIG ONE (06:30)
[2018-07-15] MEDS ORDERED: VANCOMYCIN INJ 1,000 MG in SODIUM CHLORIDE 0.9% 250 ML IV ONE (06:30)
[2018-07-15 10:34] LABS: Apearance,Urine CLEAR (Clear); Bilirubin,Urine Negative (Negative); Blood, Urine Negative (Negative); Glucose,Urine (UA) Negative (Negative); Ketones,Urine Negative (Negative); Nitrite,Urine Negative (Negative); Protein,Urine Negative; RBC,Urine <1 /HPF (0-4); Urine Color Yellow (Yellow); Urine Specific Gravity 1.018 (1.001-1.035); Urine Urobilinogen < 2.0 EU/DL (0.2-1.0); WBC,Urine <1 /HPF (0-6)
[2018-07-15] MEDS: INSULIN REGULAR 500 UNIT/ML SUBCUT SCH ×4 (12:45→23:02)
[2018-07-15] MEDS ORDERED: LIDOCAINE 1% 20 ML VIAL ONE (15:46)
[2018-07-15] MEDS ORDERED: HEPARIN/NACL 0.9% 2 UNITS/ML 500 ML IV ONE ×2 (15:46→17:24)
[2018-07-15] MEDS ORDERED: VANCOMYCIN 500 MG VIAL ONE (15:46)
[2018-07-15] MEDS ORDERED: MIDAZOLAM 2 MG/2 ML VIAL ONE ×3 (15:47→17:26)
[2018-07-15] MEDS ORDERED: fentaNYL 100 MCG/2 ML VIAL ONE ×4 (15:47→17:20)
[2018-07-15] MEDS: CARVEDILOL 3.125 MG TABLET PO SCH ×2 (17:01→20:09)
[2018-07-15] MEDS: SPIRONOLACTONE 25 MG TABLET PO SCH (17:01)
[2018-07-15] MEDS: FUROSEMIDE 40 MG TABLET PO SCH ×3 (17:01→21:07)
[2018-07-15] MEDS: SACUBITRIL/VALSARTAN 49-51 MG TABLET PO SCH ×2 (17:02→21:07)
[2018-07-15] MEDS: POTASSIUM CHLORIDE 20 MEQ TABLET PO SCH ×2 (17:02→21:05)
[2018-07-15] MEDS: TICAGRELOR 90 MG TABLET PO SCH (17:02)
[2018-07-15] MEDS: FLUTICASONE 50 MCG NASAL SPRAY 16 GM BOTTLE BOTH NARES SCH (17:02)
[2018-07-15] MEDS: MOISTURIZING CREAM (EUCERIN) 113 GM JAR TOP SCH (17:02)
[2018-07-15] MEDS: ATORVASTATIN 80 MG TABLET PO SCH (17:03)
[2018-07-15] MEDS: FLUOCINONIDE E 0.05% CREAM 15 GM TUBE TOP SCH ×2 (17:03→22:48)
[2018-07-15] MEDS: TRIAMCINOLONE 0.1% CREAM 15 GM TUBE TOP SCH ×2 (17:03→21:09)
[2018-07-15] MEDS: PANTOPRAZOLE 40 MG TABLET PO SCH (17:04)
[2018-07-15] MEDS: metOLazone 5 MG TABLET PO SCH (17:04)
[2018-07-15] MEDS: PREGABALIN 75 MG CAPSULE PO SCH ×2 (17:04→21:05)
[2018-07-15] MEDS: CEFTAROLINE 600 MG in SODIUM CHLORIDE 0.9% 100 ML IV SCH ×2 (17:04→22:00)
[2018-07-15] MEDS ORDERED: KETOROLAC 30 MG/1 ML VIAL IV ONE (17:18)
[2018-07-15] MEDS ORDERED: TISSUE ADHESIVE 1 EACH APPLICATOR TOP ONE (18:11)
[2018-07-15] MEDS ORDERED: GLUCAGON 1 MG VIAL IM PRN (18:32)
[2018-07-15] MEDS ORDERED: oxyCODONE/ACETAMINOPHEN 5-325 MG TABLET PO PRN (18:32)
[2018-07-15] MEDS ORDERED: DEXTROSE 50% 25 GM/50 ML VIAL IV PRN (18:32)
[2018-07-15] MEDS: ENOXAPARIN 40 MG/0.4 ML SYRINGE SUBCUT SCH (20:08)
[2018-07-15] MEDS: MONTELUKAST 10 MG TABLET PO SCH (21:05)
[2018-07-15] MEDS: LORATADINE 10 MG TABLET PO SCH (21:05)
[2018-07-15] MEDS: HYDROmorphone 2 MG/1 ML VIAL IV PRN (21:07)
[2018-07-16] MEDS: HYDROmorphone 2 MG/1 ML VIAL IV PRN (02:15)
[2018-07-16 03:47] LABS: Basophils % 0.2 % (0.0-0.8); Eosinophils # 0.1 10*3/uL (0.0-0.87); Eosinophils % 0.7 % (0.00-10.9); Hematocrit 42.9 VOL% (42.0-52.0); Hemoglobin 13.2 GM/DL (14.0-18.0); Immature Granulocytes Absolute 0.24 #; Lymphocytes # 1.2 10*3/uL (1.4-4.0); Lymphocytes % 10.1 % (21.2-54.2); Mean Corpuscular HGB Conc 30.8 GM/DL (32-36); Mean Corpuscular Hemoglobin 26 PG (27-34); Mean Corpuscular Volume 83.1 FL (87-102); Mean Platelet Volume 10.1 FL (9.6-12.0); Monocytes # 1.2 10*3/uL (0.11-0.8); Monocytes % 9.9 % (1.7-12.7); NRBC # 0.04 10*3/uL; Neutrophils # 9.4 10*3/uL (1.4-7.4); Neutrophils % 77.1 % (38.7-73.9); Platelet Count 239 T/CUMM (130-400); Red Blood Count 5.16 MC/CUMM (3.8-5.5); Red Cell Distribution Width 16.9 % (9.3-17.3); White Blood Count 12.2 T/CUMM (4-12)
[2018-07-16 04:02] LABS: Calcium 8.5 MG/DL (8.5-10.1); Osmolality,Calculated 288.8 MOS/KG (273-304); Potassium 4.1 MMOL/L (3.5-5.1)
[2018-07-16 04:03] LABS: Calcium 8.7 MG/DL (8.5-10.1); Osmolality,Calculated 287.8 MOS/KG (273-304); Potassium 3.9 MMOL/L (3.5-5.1)
[2018-07-16] MEDS: methylPREDNISolone SOD SUC 40 MG/1 ML VIAL IV SCH ×2 (06:31→16:42)
[2018-07-16] MEDS ORDERED: VANCOMYCIN INJ 1,000 MG in SODIUM CHLORIDE 0.9% 250 ML IV ONE (06:32)
[2018-07-16] MEDS: ALBUTEROL/IPRATROPIUM 3 ML NEB RESP TX SCH ×5 (07:50→22:40)
[2018-07-16] MEDS: INSULIN REGULAR 500 UNIT/ML SUBCUT SCH ×4 (09:09→22:11)
[2018-07-16] MEDS: LORazepam 1 MG TABLET PO PRN ×2 (09:27→22:10)
[2018-07-16] MEDS: metOLazone 5 MG TABLET PO SCH (09:43)
[2018-07-16] MEDS: ATORVASTATIN 80 MG TABLET PO SCH (09:44)
[2018-07-16] MEDS: POTASSIUM CHLORIDE 20 MEQ TABLET PO SCH ×2 (09:44→22:01)
[2018-07-16] MEDS: SACUBITRIL/VALSARTAN 49-51 MG TABLET PO SCH ×2 (09:45→21:59)
[2018-07-16] MEDS: SPIRONOLACTONE 25 MG TABLET PO SCH (09:46)
[2018-07-16] MEDS: CARVEDILOL 3.125 MG TABLET PO SCH ×2 (09:46→16:41)
[2018-07-16] MEDS: PANTOPRAZOLE 40 MG TABLET PO SCH (09:46)
[2018-07-16] MEDS: TRIAMCINOLONE 0.1% CREAM 15 GM TUBE TOP SCH ×2 (09:51→22:04)
[2018-07-16] MEDS: MOISTURIZING CREAM (EUCERIN) 113 GM JAR TOP SCH (09:51)
[2018-07-16] MEDS: FLUTICASONE 50 MCG NASAL SPRAY 16 GM BOTTLE BOTH NARES SCH (09:52)
[2018-07-16] MEDS: FLUOCINONIDE E 0.05% CREAM 15 GM TUBE TOP SCH ×2 (09:53→22:05)
[2018-07-16] MEDS: FUROSEMIDE 40 MG TABLET PO SCH ×2 (09:53→16:42)
[2018-07-16] MEDS: PREGABALIN 75 MG CAPSULE PO SCH ×2 (09:54→22:01)
[2018-07-16] MEDS: CEFTAROLINE 600 MG in SODIUM CHLORIDE 0.9% 100 ML IV SCH ×2 (10:02→22:28)
[2018-07-16] MEDS: ASPIRIN EC 81 MG TABLET PO SCH (12:16)
[2018-07-16] MEDS: TICAGRELOR 90 MG TABLET PO SCH ×2 (12:17→21:59)
[2018-07-16] MEDS: LORATADINE 10 MG TABLET PO SCH (21:59)
[2018-07-16] MEDS: MONTELUKAST 10 MG TABLET PO SCH (22:02)
[2018-07-17] MEDS: ALBUTEROL/IPRATROPIUM 3 ML NEB RESP TX SCH ×2 (01:00→08:12)
[2018-07-17 04:33] LABS: Basophils % 0.2 % (0.0-0.8); Eosinophils % 0.2 % (0.00-10.9); Hematocrit 41.6 VOL% (42.0-52.0); Immature Granulocytes % 1.6 %; Immature Granulocytes Absolute 0.21 #; Lymphocytes # 0.8 10*3/uL (1.4-4.0); Lymphocytes % 5.8 % (21.2-54.2); Mean Corpuscular HGB Conc 31.3 GM/DL (32-36); Mean Corpuscular Hemoglobin 26 PG (27-34); Mean Corpuscular Volume 82.2 FL (87-102); Mean Platelet Volume 10.2 FL (9.6-12.0); Monocytes # 1.2 10*3/uL (0.11-0.8); Monocytes % 9.4 % (1.7-12.7); NRBC # 0.03 10*3/uL; Neutrophils # 10.8 10*3/uL (1.4-7.4); Neutrophils % 82.8 % (38.7-73.9); Platelet Count 212 T/CUMM (130-400); Red Blood Count 5.06 MC/CUMM (3.8-5.5); Red Cell Distribution Width 17.2 % (9.3-17.3)
[2018-07-17 04:53] LABS: Calcium 8.7 MG/DL (8.5-10.1); Osmolality,Calculated 281.7 MOS/KG (273-304); Potassium 3.9 MMOL/L (3.5-5.1)
[2018-07-17] MEDS: methylPREDNISolone SOD SUC 40 MG/1 ML VIAL IV SCH (05:50)
[2018-07-17 08:25] VITALS: BP 102/63
[2018-07-17] MEDS: INSULIN REGULAR 500 UNIT/ML SUBCUT SCH (08:36)
[2018-07-17] MEDS: CEFTAROLINE 600 MG in SODIUM CHLORIDE 0.9% 100 ML IV SCH (08:38)
[2018-07-17] MEDS: TICAGRELOR 90 MG TABLET PO SCH (08:39)
[2018-07-17] MEDS: SPIRONOLACTONE 25 MG TABLET PO SCH (08:39)
[2018-07-17] MEDS: ASPIRIN EC 81 MG TABLET PO SCH (08:39)
[2018-07-17] MEDS: POTASSIUM CHLORIDE 20 MEQ TABLET PO SCH (08:39)
[2018-07-17] MEDS: PREGABALIN 75 MG CAPSULE PO SCH (08:39)
[2018-07-17] MEDS: FUROSEMIDE 40 MG TABLET PO SCH (08:39)
[2018-07-17] MEDS: PANTOPRAZOLE 40 MG TABLET PO SCH (08:39)
[2018-07-17] MEDS: ATORVASTATIN 80 MG TABLET PO SCH (08:39)
[2018-07-17] MEDS: SACUBITRIL/VALSARTAN 49-51 MG TABLET PO SCH (08:40)
[2018-07-17] MEDS: CARVEDILOL 3.125 MG TABLET PO SCH (08:40)
[2018-07-17] MEDS: metOLazone 5 MG TABLET PO SCH (08:40)
[2018-07-17] MEDS: FLUTICASONE 50 MCG NASAL SPRAY 16 GM BOTTLE BOTH NARES SCH (08:41)
[2018-07-17] MEDS: FLUOCINONIDE E 0.05% CREAM 15 GM TUBE TOP SCH (08:41)
[2018-07-17] MEDS: TRIAMCINOLONE 0.1% CREAM 15 GM TUBE TOP SCH (08:41)
[2018-07-17] MEDS: MOISTURIZING CREAM (EUCERIN) 113 GM JAR TOP SCH (08:41)
[2018-07-17] MEDS: LORazepam 1 MG TABLET PO PRN (08:51)
== END 2018-07-17 11:00 | disposition home or self-care (01) | DRG 227 ==
LOC: N.EDINP 11:02 → N.ED 11:02 → SUPCPDRO 16:16 → SUATTDRO 16:16 → N.EDINP 20:40 → N.4E 21:14 → SUATTDRO 07-11 15:41 → N.TELEN 07-15 19:31
PROVIDERS: ADMIT Internal Medicine Nephrology; ATTEND Internal Medicine

== ENCOUNTER 2018-08-12 14:12 | Inpatient (IN) ==
[2018-08-12 15:17] LABS: Basophils % 0.4 % (0.0-0.8); Eosinophils # 0.1 10*3/uL (0.0-0.87); Eosinophils % 1.4 % (0.00-10.9); Hematocrit 39.5 VOL% (42.0-52.0); Hemoglobin 12.3 GM/DL (14.0-18.0); Immature Granulocytes Absolute 0.05 #; Lymphocytes # 0.8 10*3/uL (1.4-4.0); Lymphocytes % 15.5 % (21.2-54.2); Mean Corpuscular HGB Conc 31.1 GM/DL (32-36); Mean Corpuscular Volume 83.5 FL (87-102); Mean Platelet Volume 10.7 FL (9.6-12.0); Monocytes % 13.7 % (1.7-12.7); NRBC # 0.02 10*3/uL; Platelet Count 217 T/CUMM (130-400); Red Blood Count 4.73 MC/CUMM (3.8-5.5); Red Cell Distribution Width 17.6 % (9.3-17.3)
[2018-08-12 15:42] LABS: Bilirubin,Total 0.4 MG/DL (0.2-1.0); Calcium 9.3 MG/DL (8.5-10.1); Osmolality,Calculated 287.7 MOS/KG (273-304); Total Protein 7.1 G/DL (6.4-8.3)
[2018-08-12] MEDS ORDERED: FUROSEMIDE 40 MG/4 ML VIAL IM STA (17:30)
[2018-08-12] MEDS ORDERED: GLUCAGON 1 MG VIAL IM PRN (20:39)
[2018-08-12] MEDS ORDERED: NITROGLYCERIN SL 0.4 MG TABLET SL PRN (20:39)
[2018-08-12] MEDS ORDERED: BENZONATATE 100 MG CAPSULE PO PRN (20:39)
[2018-08-12] MEDS ORDERED: ONDANSETRON 4 MG/2 ML VIAL IV PRN (20:39)
[2018-08-12] MEDS ORDERED: metOLazone 5 MG TABLET PO PRN (20:39)
[2018-08-12] MEDS ORDERED: DEXTROSE 50% 25 GM/50 ML VIAL IV PRN (20:39)
[2018-08-12] MEDS: MEROPENEM 1,000 MG in SODIUM CHLORIDE 0.9% 100 ML IV SCH (22:52)
[2018-08-12] MEDS: LORazepam 1 MG TABLET PO PRN (22:52)
[2018-08-12] MEDS: ASPIRIN EC 81 MG TABLET PO SCH (23:07)
[2018-08-12] MEDS: POTASSIUM CHLORIDE 20 MEQ TABLET PO SCH (23:08)
[2018-08-12] MEDS: FLUOCINONIDE E 0.05% CREAM 15 GM TUBE TOP SCH (23:08)
[2018-08-12] MEDS: INSULIN LISPRO 100 UNIT/ML SUBCUT SCH (23:08)
[2018-08-12] MEDS: CARVEDILOL 3.125 MG TABLET PO SCH (23:08)
[2018-08-12] MEDS: TICAGRELOR 90 MG TABLET PO SCH (23:08)
[2018-08-12] MEDS: SACUBITRIL/VALSARTAN 49-51 MG TABLET PO SCH (23:09)
[2018-08-12] MEDS: ENOXAPARIN 40 MG/0.4 ML SYRINGE SUBCUT SCH (23:09)
[2018-08-12] MEDS: PREGABALIN 75 MG CAPSULE PO SCH (23:09)
[2018-08-13] MEDS: ALBUTEROL 2.5 MG/3 ML NEB RESP TX SCH ×4 (00:31→20:07)
[2018-08-13 06:02] LABS: Blood Urea Nitrogen 34 MG/DL (7-18); Calcium 9.3 MG/DL (8.5-10.1); Glucose 109 MG/DL (74-106); Osmolality,Calculated 283.7 MOS/KG (273-304); Troponin I < 0.015 NG/ML (0.00-0.045)
[2018-08-13] MEDS ORDERED: UREA TOP SCH (09:00)
[2018-08-13] MEDS ORDERED: NON-FORMULARY MEDICATION (Liraglutide [Victoza 3-Pak] 1.8 MG) SUBCUT SCH (09:00)
[2018-08-13] MEDS: FLUTICASONE 50 MCG NASAL SPRAY 16 GM BOTTLE BOTH NARES SCH (09:32)
[2018-08-13] MEDS: PANTOPRAZOLE 40 MG TABLET PO SCH (09:32)
[2018-08-13] MEDS: TICAGRELOR 90 MG TABLET PO SCH ×2 (09:32→21:32)
[2018-08-13] MEDS: PREGABALIN 75 MG CAPSULE PO SCH ×2 (09:32→21:33)
[2018-08-13] MEDS: POTASSIUM CHLORIDE 20 MEQ TABLET PO SCH ×2 (09:32→21:33)
[2018-08-13] MEDS: FLUOCINONIDE E 0.05% CREAM 15 GM TUBE TOP SCH ×2 (09:32→21:33)
[2018-08-13] MEDS: SACUBITRIL/VALSARTAN 49-51 MG TABLET PO SCH ×2 (09:33→21:32)
[2018-08-13] MEDS: CARVEDILOL 3.125 MG TABLET PO SCH ×2 (09:33→21:32)
[2018-08-13] MEDS: ATORVASTATIN 80 MG TABLET PO SCH (09:33)
[2018-08-13] MEDS: FUROSEMIDE 40 MG/4 ML VIAL IV SCH ×2 (09:33→17:38)
[2018-08-13] MEDS: SPIRONOLACTONE 25 MG TABLET PO SCH (09:33)
[2018-08-13] MEDS: MEROPENEM 1,000 MG in SODIUM CHLORIDE 0.9% 100 ML IV SCH ×2 (09:34→21:32)
[2018-08-13] MEDS: INSULIN LISPRO 100 UNIT/ML SUBCUT SCH ×2 (09:34→13:14)
[2018-08-13] MEDS: GLYCOPYRROLATE INH SCH (09:36)
[2018-08-13] MEDS: FORMOTEROL FUM INH SCH (09:36)
[2018-08-13] MEDS: ASPIRIN EC 81 MG TABLET PO SCH (21:32)
[2018-08-13] MEDS: LORazepam 1 MG TABLET PO PRN (21:32)
[2018-08-13] MEDS: ENOXAPARIN 40 MG/0.4 ML SYRINGE SUBCUT SCH (21:33)
[2018-08-14] MEDS: ALBUTEROL 2.5 MG/3 ML NEB RESP TX SCH ×4 (01:49→19:29)
[2018-08-14 05:42] LABS: Basophils % 0.7 % (0.0-0.8); Eosinophils # 0.1 10*3/uL (0.0-0.87); Eosinophils % 1.4 % (0.00-10.9); Hematocrit 41.2 VOL% (42.0-52.0); Hemoglobin 12.6 GM/DL (14.0-18.0); Immature Granulocytes Absolute 0.06 #; Lymphocytes % 16.9 % (21.2-54.2); Mean Corpuscular HGB Conc 30.6 GM/DL (32-36); Mean Corpuscular Volume 84.4 FL (87-102); Mean Platelet Volume 10.2 FL (9.6-12.0); Monocytes % 17.2 % (1.7-12.7); Neutrophils % 62.8 % (38.7-73.9); Platelet Count 279 T/CUMM (130-400); Red Blood Count 4.88 MC/CUMM (3.8-5.5); White Blood Count 5.8 T/CUMM (4-12)
[2018-08-14 05:43] LABS: Calcium 9.2 MG/DL (8.5-10.1); Osmolality,Calculated 281.4 MOS/KG (273-304)
[2018-08-14 05:50] LABS: Risk Ratio 3.43
[2018-08-14 06:18] LABS: Band Neutrophils 5 % (0-10); Eosinophils 3 % (0-10); Lymphocytes 15 % (20-55); Segmented Neutrophils 68 % (50-85); Total Cells Counted 100
[2018-08-14 06:19] LABS: Anisocytosis 1+; Hypochromasia 1+; Platelet Estimate Adequate
[2018-08-14] MEDS: FLUOCINONIDE E 0.05% CREAM 15 GM TUBE TOP SCH ×2 (08:33→20:24)
[2018-08-14] MEDS: FUROSEMIDE 40 MG/4 ML VIAL IV SCH ×2 (08:40→16:46)
[2018-08-14] MEDS: ATORVASTATIN 80 MG TABLET PO SCH (08:42)
[2018-08-14] MEDS: SACUBITRIL/VALSARTAN 49-51 MG TABLET PO SCH ×2 (08:42→20:23)
[2018-08-14] MEDS: metOLazone 5 MG TABLET PO SCH (08:42)
[2018-08-14] MEDS: PANTOPRAZOLE 40 MG TABLET PO SCH (08:43)
[2018-08-14] MEDS: SPIRONOLACTONE 25 MG TABLET PO SCH (08:43)
[2018-08-14] MEDS: POTASSIUM CHLORIDE 20 MEQ TABLET PO SCH ×2 (08:43→20:23)
[2018-08-14] MEDS: CARVEDILOL 3.125 MG TABLET PO SCH ×2 (08:43→20:23)
[2018-08-14] MEDS: PREGABALIN 75 MG CAPSULE PO SCH ×2 (08:43→20:23)
[2018-08-14] MEDS: TICAGRELOR 90 MG TABLET PO SCH ×2 (08:43→20:23)
[2018-08-14] MEDS: FLUTICASONE 50 MCG NASAL SPRAY 16 GM BOTTLE BOTH NARES SCH (08:43)
[2018-08-14] MEDS: MEROPENEM 1,000 MG in SODIUM CHLORIDE 0.9% 100 ML IV SCH ×2 (08:43→20:24)
[2018-08-14] MEDS: FORMOTEROL FUM INH SCH (09:02)
[2018-08-14] MEDS: GLYCOPYRROLATE INH SCH (09:02)
[2018-08-14] MEDS: ASPIRIN EC 81 MG TABLET PO SCH (20:23)
[2018-08-14] MEDS: LORazepam 1 MG TABLET PO PRN (20:23)
[2018-08-14] MEDS: ENOXAPARIN 40 MG/0.4 ML SYRINGE SUBCUT SCH (20:23)
[2018-08-14] MEDS: ZALEPLON 5 MG CAPSULE PO PRN (23:52)
[2018-08-15] MEDS: ALBUTEROL 2.5 MG/3 ML NEB RESP TX SCH ×4 (00:13→20:04)
[2018-08-15 05:32] LABS: Calcium 9.4 MG/DL (8.5-10.1); Osmolality,Calculated 279.7 MOS/KG (273-304)
[2018-08-15 05:33] LABS: Basophils % 0.8 % (0.0-0.8); Eosinophils # 0.1 10*3/uL (0.0-0.87); Eosinophils % 0.9 % (0.00-10.9); Hematocrit 40.7 VOL% (42.0-52.0); Hemoglobin 12.4 GM/DL (14.0-18.0); Immature Granulocytes % 0.8 %; Immature Granulocytes Absolute 0.04 #; Lymphocytes # 0.8 10*3/uL (1.4-4.0); Lymphocytes % 15.7 % (21.2-54.2); Mean Corpuscular HGB Conc 30.5 GM/DL (32-36); Mean Corpuscular Volume 84.4 FL (87-102); Mean Platelet Volume 10.5 FL (9.6-12.0); Monocytes % 16.8 % (1.7-12.7); Platelet Count 255 T/CUMM (130-400); Red Blood Count 4.82 MC/CUMM (3.8-5.5); Red Cell Distribution Width 17.8 % (9.3-17.3); White Blood Count 5.3 T/CUMM (4-12)
[2018-08-15 06:12] LABS: Eosinophils 1 % (0-10); Hypochromasia 1+; Lymphocytes 16 % (20-55); Ovalocytes Slight; Platelet Estimate Adequate; Segmented Neutrophils 71 % (50-85); Total Cells Counted 100
[2018-08-15] MEDS: FLUTICASONE 50 MCG NASAL SPRAY 16 GM BOTTLE BOTH NARES SCH (09:50)
[2018-08-15] MEDS: POTASSIUM CHLORIDE 20 MEQ TABLET PO SCH ×2 (09:51→21:02)
[2018-08-15] MEDS: FORMOTEROL FUM INH SCH (09:51)
[2018-08-15] MEDS: SPIRONOLACTONE 25 MG TABLET PO SCH (09:51)
[2018-08-15] MEDS: SACUBITRIL/VALSARTAN 49-51 MG TABLET PO SCH ×2 (09:51→21:02)
[2018-08-15] MEDS: CARVEDILOL 3.125 MG TABLET PO SCH ×2 (09:51→21:02)
[2018-08-15] MEDS: TICAGRELOR 90 MG TABLET PO SCH ×2 (09:51→21:02)
[2018-08-15] MEDS: GLYCOPYRROLATE INH SCH (09:51)
[2018-08-15] MEDS: PANTOPRAZOLE 40 MG TABLET PO SCH (09:52)
[2018-08-15] MEDS: PREGABALIN 75 MG CAPSULE PO SCH ×2 (09:52→21:02)
[2018-08-15] MEDS: ATORVASTATIN 80 MG TABLET PO SCH (09:52)
[2018-08-15] MEDS: FLUOCINONIDE E 0.05% CREAM 15 GM TUBE TOP SCH ×2 (09:52→21:03)
[2018-08-15] MEDS: LORazepam 1 MG TABLET PO PRN ×2 (10:17→21:02)
[2018-08-15] MEDS: MEROPENEM 1,000 MG in SODIUM CHLORIDE 0.9% 100 ML IV SCH ×2 (15:22→16:20)
[2018-08-15] MEDS: FUROSEMIDE 40 MG/4 ML VIAL IV SCH ×2 (15:23→15:30)
[2018-08-15] MEDS: ASPIRIN EC 81 MG TABLET PO SCH (21:02)
[2018-08-15] MEDS: ENOXAPARIN 40 MG/0.4 ML SYRINGE SUBCUT SCH (21:03)
[2018-08-15] MEDS ORDERED: FUROSEMIDE 40 MG/4 ML VIAL IV ONE (22:00)
[2018-08-16] MEDS: ALBUTEROL 2.5 MG/3 ML NEB RESP TX SCH ×4 (02:40→19:56)
[2018-08-16] MEDS: MEROPENEM 1,000 MG in SODIUM CHLORIDE 0.9% 100 ML IV SCH (04:06)
[2018-08-16 05:46] LABS: Basophils % 0.6 % (0.0-0.8); Eosinophils # 0.1 10*3/uL (0.0-0.87); Eosinophils % 1.5 % (0.00-10.9); Hematocrit 40.4 VOL% (42.0-52.0); Hemoglobin 12.4 GM/DL (14.0-18.0); Immature Granulocytes % 0.9 %; Immature Granulocytes Absolute 0.05 #; Lymphocytes # 0.8 10*3/uL (1.4-4.0); Mean Corpuscular HGB Conc 30.7 GM/DL (32-36); Mean Corpuscular Volume 84.5 FL (87-102); Mean Platelet Volume 10.2 FL (9.6-12.0); Monocytes % 22.6 % (1.7-12.7); Neutrophils % 60.4 % (38.7-73.9); Platelet Count 203 T/CUMM (130-400); Red Blood Count 4.78 MC/CUMM (3.8-5.5); Red Cell Distribution Width 17.5 % (9.3-17.3); White Blood Count 5.4 T/CUMM (4-12)
[2018-08-16 06:12] LABS: Anisocytosis 1+; Band Neutrophils 3 % (0-10); Eosinophils 2 % (0-10); Lymphocytes 19 % (20-55); Platelet Estimate Normal; Segmented Neutrophils 55 % (50-85); Total Cells Counted 100
[2018-08-16 06:20] LABS: Calcium 9.3 MG/DL (8.5-10.1); Osmolality,Calculated 278.7 MOS/KG (273-304)
[2018-08-16 06:46] LABS: Calcium 8.7 MG/DL (8.5-10.1); Osmolality,Calculated 277.8 MOS/KG (273-304)
[2018-08-16] MEDS: ATORVASTATIN 80 MG TABLET PO SCH (09:30)
[2018-08-16] MEDS: CARVEDILOL 3.125 MG TABLET PO SCH ×2 (09:30→21:24)
[2018-08-16] MEDS: SPIRONOLACTONE 25 MG TABLET PO SCH (09:30)
[2018-08-16] MEDS: LORazepam 1 MG TABLET PO PRN (09:30)
[2018-08-16] MEDS: TICAGRELOR 90 MG TABLET PO SCH ×2 (09:30→21:24)
[2018-08-16] MEDS: PREGABALIN 75 MG CAPSULE PO SCH ×2 (09:30→21:23)
[2018-08-16] MEDS: POTASSIUM CHLORIDE 20 MEQ TABLET PO SCH ×2 (09:31→21:23)
[2018-08-16] MEDS: FUROSEMIDE 40 MG/4 ML VIAL IV SCH ×2 (09:31→18:13)
[2018-08-16] MEDS: PANTOPRAZOLE 40 MG TABLET PO SCH (09:31)
[2018-08-16] MEDS: metOLazone 5 MG TABLET PO SCH (09:31)
[2018-08-16] MEDS: FORMOTEROL FUM INH SCH (09:37)
[2018-08-16] MEDS: GLYCOPYRROLATE INH SCH (09:37)
[2018-08-16] MEDS: FLUTICASONE 50 MCG NASAL SPRAY 16 GM BOTTLE BOTH NARES SCH (09:39)
[2018-08-16] MEDS: FLUOCINONIDE E 0.05% CREAM 15 GM TUBE TOP SCH ×2 (09:39→21:24)
[2018-08-16] MEDS: SACUBITRIL/VALSARTAN 49-51 MG TABLET PO SCH ×2 (09:43→21:23)
[2018-08-16] MEDS ORDERED: DOXYCYCLINE HYCLATE 100 MG CAPSULE PO SCH (11:30)
[2018-08-16] MEDS: ALBUMIN 25% 25 GM in PREMIX 1 EACH IV SCH (17:25)
[2018-08-16] MEDS: DOXYCYCLINE HYCLATE 100 MG CAPSULE PO SCH (17:25)
[2018-08-16] MEDS: LORazepam 1 MG TABLET PO SCH (21:23)
[2018-08-16] MEDS: ASPIRIN EC 81 MG TABLET PO SCH (21:24)
[2018-08-16] MEDS: ENOXAPARIN 40 MG/0.4 ML SYRINGE SUBCUT SCH (21:24)
[2018-08-16] MEDS: ZALEPLON 5 MG CAPSULE PO PRN (22:33)
[2018-08-17] MEDS: ALBUTEROL 2.5 MG/3 ML NEB RESP TX SCH ×4 (01:37→19:25)
[2018-08-17] MEDS: ALBUMIN 25% 25 GM in PREMIX 1 EACH IV SCH ×2 (03:51→15:04)
[2018-08-17] MEDS: SACUBITRIL/VALSARTAN 49-51 MG TABLET PO SCH ×2 (08:00→21:24)
[2018-08-17] MEDS: TICAGRELOR 90 MG TABLET PO SCH ×2 (08:00→21:24)
[2018-08-17] MEDS: FORMOTEROL FUM INH SCH (08:00)
[2018-08-17] MEDS: GLYCOPYRROLATE INH SCH (08:00)
[2018-08-17] MEDS: PANTOPRAZOLE 40 MG TABLET PO SCH (08:00)
[2018-08-17] MEDS: LORazepam 1 MG TABLET PO SCH ×2 (08:00→21:23)
[2018-08-17] MEDS: CARVEDILOL 3.125 MG TABLET PO SCH ×2 (08:00→21:24)
[2018-08-17] MEDS: PREGABALIN 75 MG CAPSULE PO SCH ×2 (08:00→21:24)
[2018-08-17] MEDS: SPIRONOLACTONE 25 MG TABLET PO SCH (08:00)
[2018-08-17] MEDS: DOXYCYCLINE HYCLATE 100 MG CAPSULE PO SCH ×2 (08:00→16:41)
[2018-08-17] MEDS: POTASSIUM CHLORIDE 20 MEQ TABLET PO SCH ×2 (08:00→21:23)
[2018-08-17] MEDS: ATORVASTATIN 80 MG TABLET PO SCH (08:00)
[2018-08-17] MEDS: FUROSEMIDE 40 MG/4 ML VIAL IV SCH ×2 (08:01→16:41)
[2018-08-17] MEDS: FLUTICASONE 50 MCG NASAL SPRAY 16 GM BOTTLE BOTH NARES SCH (08:02)
[2018-08-17] MEDS: FLUOCINONIDE E 0.05% CREAM 15 GM TUBE TOP SCH ×2 (08:02→21:24)
[2018-08-17 10:59] LABS: Basophils % 0.6 % (0.0-0.8); Eosinophils # 0.1 10*3/uL (0.0-0.87); Eosinophils % 1.3 % (0.00-10.9); Hematocrit 38.9 VOL% (42.0-52.0); Hemoglobin 12.3 GM/DL (14.0-18.0); Immature Granulocytes % 0.6 %; Immature Granulocytes Absolute 0.03 #; Lymphocytes # 0.8 10*3/uL (1.4-4.0); Lymphocytes % 15.5 % (21.2-54.2); Mean Corpuscular HGB Conc 31.6 GM/DL (32-36); Mean Corpuscular Volume 82.8 FL (87-102); Monocytes % 12.9 % (1.7-12.7); Neutrophils % 69.1 % (38.7-73.9); Platelet Count 228 T/CUMM (130-400); Red Cell Distribution Width 17.3 % (9.3-17.3); White Blood Count 5.4 T/CUMM (4-12)
[2018-08-17 11:30] LABS: Calcium 9.4 MG/DL (8.5-10.1); Osmolality,Calculated 279.1 MOS/KG (273-304)
[2018-08-17] MEDS ORDERED: BUMETANIDE 1 MG/4 ML VIAL IV ONE (12:02)
[2018-08-17] MEDS ORDERED: ACETAMINOPHEN 325 MG TABLET PO PRN (21:14)
[2018-08-17] MEDS: ASPIRIN EC 81 MG TABLET PO SCH (21:23)
[2018-08-17] MEDS: ZALEPLON 5 MG CAPSULE PO PRN (21:23)
[2018-08-17] MEDS: ENOXAPARIN 40 MG/0.4 ML SYRINGE SUBCUT SCH (21:24)
[2018-08-18] MEDS: ALBUTEROL 2.5 MG/3 ML NEB RESP TX SCH ×4 (00:25→19:50)
[2018-08-18] MEDS: ALBUMIN 25% 25 GM in PREMIX 1 EACH IV SCH ×2 (03:51→15:00)
[2018-08-18 05:32] LABS: Basophils % 0.8 % (0.0-0.8); Eosinophils # 0.1 10*3/uL (0.0-0.87); Eosinophils % 1.4 % (0.00-10.9); Hematocrit 38.2 VOL% (42.0-52.0); Immature Granulocytes % 0.6 %; Immature Granulocytes Absolute 0.03 #; Lymphocytes # 0.7 10*3/uL (1.4-4.0); Lymphocytes % 15.1 % (21.2-54.2); Mean Corpuscular HGB Conc 31.4 GM/DL (32-36); Mean Corpuscular Volume 83.6 FL (87-102); Mean Platelet Volume 9.9 FL (9.6-12.0); Monocytes % 20.1 % (1.7-12.7); Platelet Count 213 T/CUMM (130-400); Red Blood Count 4.57 MC/CUMM (3.8-5.5); Red Cell Distribution Width 17.3 % (9.3-17.3); White Blood Count 4.8 T/CUMM (4-12)
[2018-08-18 05:53] LABS: Eosinophils 2 % (0-10); Hypochromasia 1+; Lymphocytes 16 % (20-55); Ovalocytes Slight; Platelet Estimate Adequate; Segmented Neutrophils 72 % (50-85); Total Cells Counted 100
[2018-08-18 06:00] LABS: Calcium 9.7 MG/DL (8.5-10.1); Osmolality,Calculated 283.5 MOS/KG (273-304)
[2018-08-18] MEDS: LORazepam 1 MG TABLET PO SCH ×2 (08:12→21:22)
[2018-08-18] MEDS: metOLazone 5 MG TABLET PO SCH (08:12)
[2018-08-18] MEDS: POTASSIUM CHLORIDE 20 MEQ TABLET PO SCH ×2 (08:12→21:22)
[2018-08-18] MEDS: DOXYCYCLINE HYCLATE 100 MG CAPSULE PO SCH ×2 (08:12→16:27)
[2018-08-18] MEDS: SACUBITRIL/VALSARTAN 49-51 MG TABLET PO SCH ×2 (08:12→21:22)
[2018-08-18] MEDS: ATORVASTATIN 80 MG TABLET PO SCH (08:12)
[2018-08-18] MEDS: PANTOPRAZOLE 40 MG TABLET PO SCH (08:12)
[2018-08-18] MEDS: FUROSEMIDE 40 MG/4 ML VIAL IV SCH ×2 (08:12→16:27)
[2018-08-18] MEDS: PREGABALIN 75 MG CAPSULE PO SCH ×2 (08:12→21:22)
[2018-08-18] MEDS: FLUOCINONIDE E 0.05% CREAM 15 GM TUBE TOP SCH ×2 (08:13→21:22)
[2018-08-18] MEDS: TICAGRELOR 90 MG TABLET PO SCH ×2 (08:13→21:22)
[2018-08-18] MEDS: CARVEDILOL 3.125 MG TABLET PO SCH ×2 (08:13→21:22)
[2018-08-18] MEDS: SPIRONOLACTONE 25 MG TABLET PO SCH (08:13)
[2018-08-18] MEDS: FORMOTEROL FUM INH SCH (08:14)
[2018-08-18] MEDS: FLUTICASONE 50 MCG NASAL SPRAY 16 GM BOTTLE BOTH NARES SCH (08:14)
[2018-08-18] MEDS: GLYCOPYRROLATE INH SCH (08:14)
[2018-08-18] MEDS: ENOXAPARIN 40 MG/0.4 ML SYRINGE SUBCUT SCH (21:22)
[2018-08-18] MEDS: ASPIRIN EC 81 MG TABLET PO SCH (21:22)
[2018-08-18] MEDS: ACETAMINOPHEN 500 MG TABLET PO PRN (21:25)
[2018-08-18] MEDS: ZALEPLON 5 MG CAPSULE PO PRN (21:25)
[2018-08-19] MEDS: ALBUMIN 25% 25 GM in PREMIX 1 EACH IV SCH ×3 (03:25→15:03)
[2018-08-19 05:51] LABS: Basophils % 0.6 % (0.0-0.8); Calcium 10.3 MG/DL (8.5-10.1); Eosinophils # 0.1 10*3/uL (0.0-0.87); Eosinophils % 1.2 % (0.00-10.9); Hematocrit 37.9 VOL% (42.0-52.0); Immature Granulocytes % 0.6 %; Immature Granulocytes Absolute 0.03 #; Lymphocytes # 0.8 10*3/uL (1.4-4.0); Lymphocytes % 15.6 % (21.2-54.2); Mean Corpuscular HGB Conc 31.7 GM/DL (32-36); Mean Corpuscular Volume 82.9 FL (87-102); Mean Platelet Volume 10.5 FL (9.6-12.0); Monocytes % 19.7 % (1.7-12.7); Neutrophils % 62.3 % (38.7-73.9); Osmolality,Calculated 285.7 MOS/KG (273-304); Platelet Count 238 T/CUMM (130-400); Red Blood Count 4.57 MC/CUMM (3.8-5.5); Red Cell Distribution Width 17.4 % (9.3-17.3); White Blood Count 5.2 T/CUMM (4-12)
[2018-08-19 06:27] LABS: Band Neutrophils 3 % (0-10); Eosinophils 3 % (0-10); Hypochromasia Slight; Lymphocytes 15 % (20-55); Metamyelocytes 2 %; Platelet Estimate Normal; Segmented Neutrophils 58 % (50-85); Total Cells Counted 100
[2018-08-19] MEDS: ALBUTEROL 2.5 MG/3 ML NEB RESP TX SCH ×4 (07:21→19:04)
[2018-08-19] MEDS: DOXYCYCLINE HYCLATE 100 MG CAPSULE PO SCH ×2 (09:16→16:51)
[2018-08-19] MEDS: PREGABALIN 75 MG CAPSULE PO SCH ×2 (09:16→21:52)
[2018-08-19] MEDS: CARVEDILOL 3.125 MG TABLET PO SCH ×2 (09:16→21:52)
[2018-08-19] MEDS: TICAGRELOR 90 MG TABLET PO SCH ×2 (09:16→21:52)
[2018-08-19] MEDS: POTASSIUM CHLORIDE 20 MEQ TABLET PO SCH ×2 (09:16→21:52)
[2018-08-19] MEDS: ATORVASTATIN 80 MG TABLET PO SCH (09:16)
[2018-08-19] MEDS: FUROSEMIDE 40 MG/4 ML VIAL IV SCH ×2 (09:16→16:51)
[2018-08-19] MEDS: PANTOPRAZOLE 40 MG TABLET PO SCH (09:16)
[2018-08-19] MEDS: LORazepam 1 MG TABLET PO SCH ×2 (09:16→21:52)
[2018-08-19] MEDS: SPIRONOLACTONE 25 MG TABLET PO SCH (09:17)
[2018-08-19] MEDS: FORMOTEROL FUM INH SCH (09:30)
[2018-08-19] MEDS: GLYCOPYRROLATE INH SCH (09:30)
[2018-08-19] MEDS: FLUTICASONE 50 MCG NASAL SPRAY 16 GM BOTTLE BOTH NARES SCH (09:30)
[2018-08-19] MEDS: FLUOCINONIDE E 0.05% CREAM 15 GM TUBE TOP SCH ×2 (09:31→21:52)
[2018-08-19] MEDS: SACUBITRIL/VALSARTAN 49-51 MG TABLET PO SCH ×2 (09:32→21:52)
[2018-08-19] MEDS: SILDENAFIL 20 MG TABLET PO SCH ×2 (14:18→21:52)
[2018-08-19] MEDS: ASPIRIN EC 81 MG TABLET PO SCH (21:52)
[2018-08-19] MEDS: ENOXAPARIN 40 MG/0.4 ML SYRINGE SUBCUT SCH (21:52)
[2018-08-19] MEDS: ZALEPLON 5 MG CAPSULE PO PRN (21:53)
[2018-08-20] MEDS: ALBUTEROL 2.5 MG/3 ML NEB RESP TX SCH ×4 (00:50→19:06)
[2018-08-20] MEDS: ALBUMIN 25% 25 GM in PREMIX 1 EACH IV SCH ×2 (03:05→16:10)
[2018-08-20 06:56] LABS: Basophils % 0.7 % (0.0-0.8); Eosinophils # 0.1 10*3/uL (0.0-0.87); Eosinophils % 1.1 % (0.00-10.9); Hematocrit 37.6 VOL% (42.0-52.0); Hemoglobin 11.8 GM/DL (14.0-18.0); Immature Granulocytes % 0.4 %; Immature Granulocytes Absolute 0.02 #; Lymphocytes # 0.8 10*3/uL (1.4-4.0); Lymphocytes % 13.8 % (21.2-54.2); Mean Corpuscular HGB Conc 31.4 GM/DL (32-36); Mean Corpuscular Volume 82.6 FL (87-102); Mean Platelet Volume 10.2 FL (9.6-12.0); Monocytes % 15.7 % (1.7-12.7); Neutrophils % 68.3 % (38.7-73.9); Platelet Count 232 T/CUMM (130-400); Red Blood Count 4.55 MC/CUMM (3.8-5.5); Red Cell Distribution Width 17.2 % (9.3-17.3); White Blood Count 5.4 T/CUMM (4-12)
[2018-08-20 07:17] LABS: Band Neutrophils 1 % (0-10); Eosinophils 2 % (0-10); Hypochromasia 1+; Lymphocytes 10 % (20-55); Platelet Estimate Adequate; Segmented Neutrophils 77 % (50-85); Total Cells Counted 100
[2018-08-20 07:34] LABS: Calcium 10.1 MG/DL (8.5-10.1); Osmolality,Calculated 281.8 MOS/KG (273-304)
[2018-08-20] MEDS: FUROSEMIDE 40 MG/4 ML VIAL IV SCH ×2 (08:57→16:09)
[2018-08-20] MEDS: PREGABALIN 75 MG CAPSULE PO SCH ×2 (08:58→21:13)
[2018-08-20] MEDS: TICAGRELOR 90 MG TABLET PO SCH ×2 (08:58→21:13)
[2018-08-20] MEDS: SACUBITRIL/VALSARTAN 49-51 MG TABLET PO SCH ×2 (08:58→21:13)
[2018-08-20] MEDS: POTASSIUM CHLORIDE 20 MEQ TABLET PO SCH ×2 (08:58→21:13)
[2018-08-20] MEDS: ATORVASTATIN 80 MG TABLET PO SCH (08:58)
[2018-08-20] MEDS: DOXYCYCLINE HYCLATE 100 MG CAPSULE PO SCH ×2 (08:58→16:09)
[2018-08-20] MEDS: LORazepam 1 MG TABLET PO SCH ×2 (08:58→21:13)
[2018-08-20] MEDS: PANTOPRAZOLE 40 MG TABLET PO SCH (08:59)
[2018-08-20] MEDS: SILDENAFIL 20 MG TABLET PO SCH ×3 (08:59→21:13)
[2018-08-20] MEDS: SPIRONOLACTONE 25 MG TABLET PO SCH (08:59)
[2018-08-20] MEDS: CARVEDILOL 3.125 MG TABLET PO SCH ×2 (08:59→21:13)
[2018-08-20] MEDS: FORMOTEROL FUM INH SCH (09:00)
[2018-08-20] MEDS: FLUTICASONE 50 MCG NASAL SPRAY 16 GM BOTTLE BOTH NARES SCH (09:00)
[2018-08-20] MEDS: GLYCOPYRROLATE INH SCH (09:00)
[2018-08-20] MEDS: FLUOCINONIDE E 0.05% CREAM 15 GM TUBE TOP SCH ×2 (09:01→21:14)
[2018-08-20] MEDS: metOLazone 5 MG TABLET PO SCH (09:01)
[2018-08-20] MEDS: ZALEPLON 5 MG CAPSULE PO PRN (21:13)
[2018-08-20] MEDS: ASPIRIN EC 81 MG TABLET PO SCH (21:13)
[2018-08-20] MEDS: DESITIN 4OZ/NYSTATIN 15 GRAM MIXTURE PASTE TOP SCH (21:14)
[2018-08-20] MEDS: ENOXAPARIN 40 MG/0.4 ML SYRINGE SUBCUT SCH (21:14)
[2018-08-21] MEDS: ALBUTEROL 2.5 MG/3 ML NEB RESP TX SCH ×4 (01:00→18:46)
[2018-08-21 07:02] LABS: Basophils % 0.5 % (0.0-0.8); Eosinophils # 0.1 10*3/uL (0.0-0.87); Eosinophils % 1.3 % (0.00-10.9); Hematocrit 36.9 VOL% (42.0-52.0); Hemoglobin 11.5 GM/DL (14.0-18.0); Immature Granulocytes % 0.3 %; Immature Granulocytes Absolute 0.02 #; Lymphocytes # 0.7 10*3/uL (1.4-4.0); Lymphocytes % 12.1 % (21.2-54.2); Mean Corpuscular HGB Conc 31.2 GM/DL (32-36); Mean Corpuscular Volume 83.7 FL (87-102); Mean Platelet Volume 10.4 FL (9.6-12.0); Monocytes % 15.3 % (1.7-12.7); Neutrophils % 70.5 % (38.7-73.9); Platelet Count 210 T/CUMM (130-400); Red Blood Count 4.41 MC/CUMM (3.8-5.5); Red Cell Distribution Width 17.3 % (9.3-17.3); White Blood Count 5.9 T/CUMM (4-12)
[2018-08-21] MEDS ORDERED: metOLazone 5 MG TABLET PO SCH ×2 (07:30)
[2018-08-21] MEDS: FUROSEMIDE 40 MG/4 ML VIAL IV SCH ×2 (09:15→16:00)
[2018-08-21] MEDS: SACUBITRIL/VALSARTAN 49-51 MG TABLET PO SCH ×2 (09:16→21:01)
[2018-08-21] MEDS: DOXYCYCLINE HYCLATE 100 MG CAPSULE PO SCH ×2 (09:16→16:00)
[2018-08-21] MEDS: CARVEDILOL 3.125 MG TABLET PO SCH ×2 (09:16→21:01)
[2018-08-21] MEDS: PREGABALIN 75 MG CAPSULE PO SCH ×2 (09:16→21:01)
[2018-08-21] MEDS: SPIRONOLACTONE 25 MG TABLET PO SCH (09:16)
[2018-08-21] MEDS: TICAGRELOR 90 MG TABLET PO SCH ×2 (09:16→21:01)
[2018-08-21] MEDS: PANTOPRAZOLE 40 MG TABLET PO SCH (09:16)
[2018-08-21] MEDS: ATORVASTATIN 80 MG TABLET PO SCH (09:16)
[2018-08-21] MEDS: LORazepam 1 MG TABLET PO SCH ×2 (09:16→21:01)
[2018-08-21] MEDS: POTASSIUM CHLORIDE 20 MEQ TABLET PO SCH ×2 (09:17→21:01)
[2018-08-21] MEDS: SILDENAFIL 20 MG TABLET PO SCH ×3 (09:17→21:01)
[2018-08-21] MEDS: DESITIN 4OZ/NYSTATIN 15 GRAM MIXTURE PASTE TOP SCH ×2 (09:23→21:01)
[2018-08-21] MEDS: FLUOCINONIDE E 0.05% CREAM 15 GM TUBE TOP SCH ×2 (09:24→21:01)
[2018-08-21] MEDS: FLUTICASONE 50 MCG NASAL SPRAY 16 GM BOTTLE BOTH NARES SCH (09:24)
[2018-08-21] MEDS: FORMOTEROL FUM INH SCH (09:24)
[2018-08-21] MEDS: GLYCOPYRROLATE INH SCH (09:24)
[2018-08-21] MEDS: ENOXAPARIN 40 MG/0.4 ML SYRINGE SUBCUT SCH (21:01)
[2018-08-21] MEDS: ASPIRIN EC 81 MG TABLET PO SCH (21:01)
[2018-08-21] MEDS: ZALEPLON 5 MG CAPSULE PO PRN (22:13)
[2018-08-21] MEDS: ACETAMINOPHEN 500 MG TABLET PO PRN (22:13)
[2018-08-22] MEDS: ALBUTEROL 2.5 MG/3 ML NEB RESP TX SCH ×3 (00:34→07:22)
[2018-08-22] MEDS ORDERED: ACETAMINOPHEN 500 MG TABLET PO PRN (05:00)
[2018-08-22 06:00] LABS: Basophils % 0.6 % (0.0-0.8); Eosinophils # 0.1 10*3/uL (0.0-0.87); Eosinophils % 1.3 % (0.00-10.9); Hemoglobin 11.8 GM/DL (14.0-18.0); Immature Granulocytes % 0.5 %; Immature Granulocytes Absolute 0.03 #; Lymphocytes # 0.8 10*3/uL (1.4-4.0); Lymphocytes % 13.2 % (21.2-54.2); Mean Corpuscular HGB Conc 31.1 GM/DL (32-36); Mean Corpuscular Volume 83.2 FL (87-102); Mean Platelet Volume 10.2 FL (9.6-12.0); Monocytes % 21.4 % (1.7-12.7); Platelet Count 215 T/CUMM (130-400); Red Blood Count 4.57 MC/CUMM (3.8-5.5); Red Cell Distribution Width 17.1 % (9.3-17.3); White Blood Count 6.3 T/CUMM (4-12)
[2018-08-22 06:31] LABS: Calcium 9.8 MG/DL (8.5-10.1); Osmolality,Calculated 293.8 MOS/KG (273-304)
[2018-08-22 06:37] LABS: Band Neutrophils 3 % (0-10); Eosinophils 2 % (0-10); Lymphocytes 12 % (20-55); Metamyelocytes 2 %; Segmented Neutrophils 59 % (50-85); Total Cells Counted 100
[2018-08-22 06:38] LABS: Platelet Estimate Normal
[2018-08-22] MEDS: FLUOCINONIDE E 0.05% CREAM 15 GM TUBE TOP SCH (08:30)
[2018-08-22] MEDS: FLUTICASONE 50 MCG NASAL SPRAY 16 GM BOTTLE BOTH NARES SCH (08:30)
[2018-08-22] MEDS: FORMOTEROL FUM INH SCH (08:30)
[2018-08-22] MEDS: DESITIN 4OZ/NYSTATIN 15 GRAM MIXTURE PASTE TOP SCH (08:30)
[2018-08-22] MEDS: GLYCOPYRROLATE INH SCH (08:30)
[2018-08-22] MEDS: FUROSEMIDE 40 MG/4 ML VIAL IV SCH (09:30)
[2018-08-22] MEDS ORDERED: FUROSEMIDE 40 MG/4 ML VIAL ONE (09:34)
[2018-08-22] MEDS ORDERED: metOLazone 5 MG TABLET PO PRN (09:35)
[2018-08-22] MEDS: TICAGRELOR 90 MG TABLET PO SCH (09:43)
[2018-08-22] MEDS: ATORVASTATIN 80 MG TABLET PO SCH (09:43)
[2018-08-22] MEDS: PREGABALIN 75 MG CAPSULE PO SCH (09:43)
[2018-08-22] MEDS: SACUBITRIL/VALSARTAN 49-51 MG TABLET PO SCH (09:43)
[2018-08-22] MEDS: POTASSIUM CHLORIDE 20 MEQ TABLET PO SCH (09:43)
[2018-08-22] MEDS: LORazepam 1 MG TABLET PO SCH (09:43)
[2018-08-22] MEDS: CARVEDILOL 3.125 MG TABLET PO SCH (09:43)
[2018-08-22] MEDS: DOXYCYCLINE HYCLATE 100 MG CAPSULE PO SCH (09:43)
[2018-08-22] MEDS: PANTOPRAZOLE 40 MG TABLET PO SCH (09:44)
[2018-08-22] MEDS: SILDENAFIL 20 MG TABLET PO SCH (09:44)
[2018-08-22] MEDS: SPIRONOLACTONE 25 MG TABLET PO SCH (09:44)
[2018-08-22] MEDS ORDERED: APIXABAN 5 MG TABLET PO SCH (10:00)
[2018-08-22 15:38] VITALS: BP 99/49
[2018-08-22] MEDS ORDERED: FUROSEMIDE 40 MG TABLET PO SCH (16:00)
== END 2018-08-22 13:20 | disposition home or self-care (01) | DRG 315 ==
LOC: N.ED 14:12 → N.EDINP 14:12 → N.5E 19:29 → SUATTDRO 08-13 09:33
PROVIDERS: ADMIT Internal Medicine; ATTEND Internal Medicine

== ENCOUNTER 2019-01-08 15:38 | Observation (INO) ==
[2019-01-08 16:30] LABS: Basophils % 0.5 % (0.0-0.8); Eosinophils # 0.2 10*3/uL (0.0-0.87); Hematocrit 41.8 VOL% (42.0-52.0); Hemoglobin 12.7 GM/DL (14.0-18.0); Immature Granulocytes % 0.4 %; Immature Granulocytes Absolute 0.03 #; Lymphocytes # 0.9 10*3/uL (1.4-4.0); Lymphocytes % 11.7 % (21.2-54.2); Mean Corpuscular HGB Conc 30.4 GM/DL (32-36); Mean Corpuscular Volume 78.1 FL (87-102); Mean Platelet Volume 10.4 FL (9.6-12.0); Monocytes % 12.1 % (1.7-12.7); Neutrophils % 73.3 % (38.7-73.9); Platelet Count 292 T/CUMM (130-400); Red Blood Count 5.35 MC/CUMM (3.8-5.5); Red Cell Distribution Width 20.4 % (9.3-17.3)
[2019-01-08 16:47] LABS: Alanine Aminotransferase 34 U/L (16-61); Albumin 3.4 G/DL (3.4-5.0); Alkaline Phosphatase 43 U/L (45-117); Aspartate Amino Transferase 19 U/L (0-37); Bilirubin,Total < 0.39 MG/DL (0.2-1.0); Blood Urea Nitrogen 34 MG/DL (7-18); Calcium 9.5 MG/DL (8.5-10.1); Estimated Glom Filtration Rate 77 ML/MIN; Glucose 204 MG/DL (74-106); Osmolality,Calculated 286.8 MOS/KG (273-304); Total Protein 7.8 G/DL (6.4-8.3); Troponin I < 0.015 NG/ML (0.00-0.045)
[2019-01-08] MEDS ORDERED: ACETAMINOPHEN 325 MG TABLET PO PRN (17:29)
[2019-01-08] MEDS ORDERED: ONDANSETRON 4 MG/2 ML VIAL IV PRN (17:29)
[2019-01-08] MEDS ORDERED: POTASSIUM CHLORIDE 20 MEQ TABLET PO PRN (17:51)
[2019-01-08 18:00] LABS: Apearance,Urine CLEAR (Clear); Bilirubin,Urine Negative (Negative); Blood, Urine Negative (Negative); Glucose,Urine (UA) >=500 mg/dL (Negative); Hyaline Casts,Urine 6 /LPF (0-3); Ketones,Urine Negative (Negative); Mucus,Urine Occasional /LPF (Occasional); Nitrite,Urine Negative (Negative); Protein,Urine Negative; RBC,Urine 1 /HPF (0-4); Urine Color Straw (Yellow); Urine Specific Gravity 1.008 (1.001-1.035); Urine Urobilinogen < 2.0 EU/DL (0.2-1.0); WBC,Urine <1 /HPF (0-6)
[2019-01-08] MEDS ORDERED: ALBUTEROL 2.5 MG/3 ML NEB RESP TX PRN (18:47)
[2019-01-08] MEDS ORDERED: BENZONATATE 100 MG CAPSULE PO PRN (18:47)
[2019-01-08] MEDS ORDERED: NITROGLYCERIN SL 0.4 MG TABLET SL PRN (18:47)
[2019-01-08] MEDS ORDERED: metOLazone 5 MG TABLET PO PRN (18:47)
[2019-01-08] MEDS ORDERED: NON-FORMULARY MEDICATION (Albuterol Sulfate [Proair Hfa] 2 PUFF) INH PRN (18:47)
[2019-01-09] MEDS: TICAGRELOR 90 MG TABLET PO SCH ×3 (01:01→21:35)
[2019-01-09] MEDS: LORATADINE 10 MG TABLET PO SCH ×2 (01:01→21:35)
[2019-01-09] MEDS: carvediloL 3.125 MG TABLET PO SCH ×3 (01:01→17:14)
[2019-01-09] MEDS: APIXABAN 5 MG TABLET PO SCH ×3 (01:02→21:39)
[2019-01-09] MEDS: POTASSIUM CHLORIDE 20 MEQ TABLET PO SCH ×3 (01:02→21:35)
[2019-01-09] MEDS: SACUBITRIL/VALSARTAN 49-51 MG TABLET PO SCH ×3 (01:02→21:34)
[2019-01-09] MEDS: FLUTICASONE 50 MCG NASAL SPRAY 16 GM BOTTLE BOTH NARES SCH ×3 (01:02→21:36)
[2019-01-09] MEDS: ATORVASTATIN 80 MG TABLET PO SCH ×2 (01:03→21:34)
[2019-01-09] MEDS: MONTELUKAST 10 MG TABLET PO SCH ×2 (01:03→21:34)
[2019-01-09] MEDS: PREGABALIN 75 MG CAPSULE PO SCH ×3 (01:03→21:34)
[2019-01-09] MEDS: TRIAMCINOLONE 0.1% CREAM 15 GM TUBE TOP SCH ×3 (01:03→21:36)
[2019-01-09] MEDS: FLUOCINONIDE E 0.05% CREAM 15 GM TUBE TOP SCH ×3 (01:04→21:36)
[2019-01-09 04:01] LABS: Basophils # 0.1 10*3/uL (0.0-0.2); Basophils % 0.6 % (0.0-0.8); Eosinophils # 0.2 10*3/uL (0.0-0.87); Eosinophils % 2.6 % (0.00-10.9); Hematocrit 41.8 VOL% (42.0-52.0); Hemoglobin 12.6 GM/DL (14.0-18.0); Immature Granulocytes % 0.6 %; Immature Granulocytes Absolute 0.05 #; Lymphocytes # 0.9 10*3/uL (1.4-4.0); Mean Corpuscular HGB Conc 30.1 GM/DL (32-36); Mean Corpuscular Volume 77.6 FL (87-102); Mean Platelet Volume 10.1 FL (9.6-12.0); Monocytes % 14.8 % (1.7-12.7); Neutrophils % 69.4 % (38.7-73.9); Platelet Count 271 T/CUMM (130-400); Red Blood Count 5.39 MC/CUMM (3.8-5.5); Red Cell Distribution Width 20.1 % (9.3-17.3); White Blood Count 7.8 T/CUMM (4-12)
[2019-01-09 04:16] LABS: Calcium 9.7 MG/DL (8.5-10.1); Osmolality,Calculated 284.5 MOS/KG (273-304); Risk Ratio 3.05; Thyroid Stimulating Hormone 2.54 uIU/ml (0.358-3.74)
[2019-01-09] MEDS ORDERED: POTASSIUM CHLORIDE 20 MEQ TABLET PO ONE (07:55)
[2019-01-09] MEDS ORDERED: GLYCOPYRROLATE INH SCH (09:00)
[2019-01-09] MEDS ORDERED: ENOXAPARIN 30 MG/0.3 ML SYRINGE SUBCUT SCH (09:00)
[2019-01-09] MEDS ORDERED: FORMOTEROL INH SCH (09:00)
[2019-01-09] MEDS ORDERED: ASPIRIN EC 81 MG TABLET PO SCH (09:00)
[2019-01-09 10:40] LABS: Troponin I < 0.015 NG/ML (0.00-0.045)
[2019-01-09] MEDS: FUROSEMIDE 40 MG TABLET PO SCH ×2 (10:47→17:14)
[2019-01-09] MEDS: SPIRONOLACTONE 25 MG TABLET PO SCH (10:47)
[2019-01-09] MEDS: PANTOPRAZOLE 40 MG TABLET PO SCH ×2 (10:50)
[2019-01-09] MEDS: LORazepam 1 MG TABLET PO PRN ×2 (10:50→17:17)
[2019-01-09] MEDS ORDERED: methylPREDNISolone ACETATE 80 MG/1 ML VIAL IM ONE (12:20)
[2019-01-09] MEDS: ALBUTEROL/IPRATROPIUM 3 ML NEB RESP TX SCH ×2 (12:33→19:34)
[2019-01-09 13:43] LABS: Troponin I < 0.015 NG/ML (0.00-0.045)
[2019-01-10] MEDS: ALBUTEROL/IPRATROPIUM 3 ML NEB RESP TX SCH ×3 (01:40→07:32)
[2019-01-10 04:19] LABS: Basophils % 0.5 % (0.0-0.8); Eosinophils # 0.1 10*3/uL (0.0-0.87); Eosinophils % 1.9 % (0.00-10.9); Hematocrit 40.3 VOL% (42.0-52.0); Hemoglobin 12.3 GM/DL (14.0-18.0); Immature Granulocytes % 0.9 %; Immature Granulocytes Absolute 0.07 #; Lymphocytes # 0.8 10*3/uL (1.4-4.0); Lymphocytes % 10.8 % (21.2-54.2); Mean Corpuscular HGB Conc 30.5 GM/DL (32-36); Mean Corpuscular Volume 77.9 FL (87-102); Mean Platelet Volume 9.7 FL (9.6-12.0); Neutrophils % 71.9 % (38.7-73.9); Platelet Count 257 T/CUMM (130-400); Red Blood Count 5.17 MC/CUMM (3.8-5.5); White Blood Count 7.5 T/CUMM (4-12)
[2019-01-10 04:55] LABS: Calcium 9.2 MG/DL (8.5-10.1); Osmolality,Calculated 282.5 MOS/KG (273-304)
[2019-01-10] MEDS ORDERED: RANOLAZINE 500 MG TABLET PO SCH (09:00)
[2019-01-10] MEDS: SPIRONOLACTONE 25 MG TABLET PO SCH (09:29)
[2019-01-10] MEDS: carvediloL 3.125 MG TABLET PO SCH (09:29)
[2019-01-10] MEDS: FUROSEMIDE 40 MG TABLET PO SCH (09:29)
[2019-01-10] MEDS: APIXABAN 5 MG TABLET PO SCH (09:30)
[2019-01-10] MEDS: TICAGRELOR 90 MG TABLET PO SCH (09:30)
[2019-01-10] MEDS: SACUBITRIL/VALSARTAN 49-51 MG TABLET PO SCH (09:30)
[2019-01-10] MEDS: TRIAMCINOLONE 0.1% CREAM 15 GM TUBE TOP SCH (09:31)
[2019-01-10] MEDS: POTASSIUM CHLORIDE 20 MEQ TABLET PO SCH (09:31)
[2019-01-10] MEDS: PREGABALIN 75 MG CAPSULE PO SCH (09:32)
[2019-01-10] MEDS: FLUOCINONIDE E 0.05% CREAM 15 GM TUBE TOP SCH (09:32)
[2019-01-10] MEDS: PANTOPRAZOLE 40 MG TABLET PO SCH ×2 (09:32)
[2019-01-10] MEDS: LORazepam 1 MG TABLET PO PRN (09:37)
[2019-01-10] MEDS: FLUTICASONE 50 MCG NASAL SPRAY 16 GM BOTTLE BOTH NARES SCH (09:58)
[2019-01-10 11:34] VITALS: BP 110/55
== END 2019-01-10 12:08 | disposition home or self-care (01) ==
LOC: N.EDINP 15:38 → N.ED 15:38 → N.TELEN 17:47
PROVIDERS: ADMIT Internal Medicine; ATTEND Internal Medicine

== ENCOUNTER 2019-09-29 10:47 | Inpatient (IN) ==
[2019-09-29 11:55] LABS: INR 1.1; PT Patient Result 12.1 SECS (9.8-11.9)
[2019-09-29 12:03] LABS: Albumin 3.3 G/DL (3.4-5.0); Bilirubin,Total 0.8 MG/DL (0.2-1.0); Calcium 9.3 MG/DL (8.5-10.1); Osmolality,Calculated 275.1 MOS/KG (273-304)
[2019-09-29 12:12] LABS: ABG Base Excess 5.8 MMOL/L (-2.5-2.5); ABG HCO3 30.9 MMOL/L (20-26); ABG Oxygen Saturation 94.8 % (95-100); ABG PCO2 46.8 MM HG (35-48); ABG PH 7.437 (7.35-7.45); ABG PO2 77.8 MM HG (80-95); ABG TCO2 32.3 MMOL/L (23-27)
[2019-09-29] MEDS ORDERED: FUROSEMIDE 40 MG/4 ML VIAL IV STA (12:15)
[2019-09-29 12:16] LABS: Basophils # 0.1 10*3/uL (0.0-0.2); Basophils % 0.8 % (0.0-0.8); Eosinophils # 0.2 10*3/uL (0.0-0.87); Eosinophils % 1.9 % (0.00-10.9); Hematocrit 42.3 VOL% (42.0-52.0); Hemoglobin 11.7 GM/DL (14.0-18.0); Immature Granulocytes % 0.4 %; Immature Granulocytes Absolute 0.04 #; Lymphocytes # 0.7 10*3/uL (1.4-4.0); Lymphocytes % 7.5 % (21.2-54.2); Mean Corpuscular HGB Conc 27.7 GM/DL (32-36); Mean Corpuscular Volume 72.1 FL (87-102); Mean Platelet Volume 10.1 FL (9.6-12.0); Monocytes % 10.2 % (1.7-12.7); NRBC # 0.08 10*3/uL; Neutrophils % 79.2 % (38.7-73.9); Platelet Count 259 T/CUMM (130-400); Red Blood Count 5.87 MC/CUMM (3.8-5.5); Red Cell Distribution Width 24.6 % (9.3-17.3)
[2019-09-29 12:33] LABS: Anisocytosis 1+; Platelet Estimate Normal; Poikilocytosis Slight
[2019-09-29 12:34] LABS: Polychromasia Slight
[2019-09-29] MEDS ORDERED: GLUCAGON 1 MG VIAL IM PRN (14:08)
[2019-09-29] MEDS ORDERED: ALBUTEROL/IPRATROPIUM 3 ML NEB RESP TX PRN (14:08)
[2019-09-29] MEDS ORDERED: DEXTROSE 10% 250 ML BAG IV PRN (14:08)
[2019-09-29] MEDS ORDERED: ONDANSETRON 4 MG/2 ML VIAL IV PRN (14:08)
[2019-09-29] MEDS: FUROSEMIDE 40 MG/4 ML VIAL IV SCH (16:28)
[2019-09-29] MEDS: INSULIN REGULAR 100 UNIT/ML SUBCUT SCH ×2 (16:36→19:04)
[2019-09-29] MEDS: carvediloL 3.125 MG TABLET PO SCH (19:04)
[2019-09-29] MEDS: PREGABALIN 75 MG CAPSULE PO SCH (19:04)
[2019-09-29] MEDS: APIXABAN 5 MG TABLET PO SCH (19:04)
[2019-09-29] MEDS: LORazepam 1 MG TABLET PO SCH (19:04)
[2019-09-29] MEDS: ATORVASTATIN 40 MG TABLET PO SCH (19:04)
[2019-09-29] MEDS: allopurinoL 100 MG TABLET PO SCH (19:04)
[2019-09-29] MEDS: TICAGRELOR 90 MG TABLET PO SCH (19:04)
[2019-09-29] MEDS: MONTELUKAST 10 MG TABLET PO SCH (19:04)
[2019-09-29] MEDS: DOCUSATE SODIUM 100 MG CAPSULE PO SCH (19:04)
[2019-09-29] MEDS: LORATADINE 10 MG TABLET PO SCH (19:04)
[2019-09-29] MEDS ORDERED: NITROGLYCERIN SL 0.4 MG TABLET SL PRN (21:18)
[2019-09-29] MEDS ORDERED: LACTOBACILLUS RHAMNOSUS GG CAPSULE PO PRN (21:18)
[2019-09-30 05:19] LABS: Albumin 3.3 G/DL (3.4-5.0); Bilirubin,Total 0.7 MG/DL (0.2-1.0); Calcium 9.5 MG/DL (8.5-10.1); Osmolality,Calculated 279.7 MOS/KG (273-304); Total Protein 7.8 G/DL (6.4-8.3)
[2019-09-30 05:38] LABS: Basophils # 0.1 10*3/uL (0.0-0.2); Basophils % 0.7 % (0.0-0.8); Eosinophils # 0.3 10*3/uL (0.0-0.87); Eosinophils % 3.2 % (0.00-10.9); Hematocrit 41.3 VOL% (42.0-52.0); Immature Granulocytes % 0.5 %; Immature Granulocytes Absolute 0.04 #; Lymphocytes # 0.9 10*3/uL (1.4-4.0); Lymphocytes % 10.5 % (21.2-54.2); Mean Corpuscular HGB Conc 27.8 GM/DL (32-36); Mean Platelet Volume 10.2 FL (9.6-12.0); Monocytes % 13.2 % (1.7-12.7); NRBC # 0.02 10*3/uL; Neutrophils % 71.9 % (38.7-73.9); Platelet Count 246 T/CUMM (130-400); Red Blood Count 5.82 MC/CUMM (3.8-5.5); Red Cell Distribution Width 24.5 % (9.3-17.3); White Blood Count 8.2 T/CUMM (4-12)
[2019-09-30 05:39] LABS: Hemoglobin 11.5 GM/DL (14.0-18.0)
[2019-09-30 05:41] LABS: Hypochromasia 1+; Microcytosis 1+; Platelet Estimate Adequate
[2019-09-30] MEDS: FUROSEMIDE 40 MG/4 ML VIAL IV SCH ×2 (08:39→16:34)
[2019-09-30] MEDS: INSULIN REGULAR 100 UNIT/ML SUBCUT SCH ×4 (08:52→21:00)
[2019-09-30] MEDS: APIXABAN 5 MG TABLET PO SCH ×2 (08:54→20:58)
[2019-09-30] MEDS: FLUTICASONE 50 MCG NASAL SPRAY 16 GM BOTTLE BOTH NARES SCH ×2 (08:54→21:03)
[2019-09-30] MEDS: PREGABALIN 75 MG CAPSULE PO SCH ×2 (08:54→20:59)
[2019-09-30] MEDS: TICAGRELOR 90 MG TABLET PO SCH ×2 (08:54→21:05)
[2019-09-30] MEDS: allopurinoL 100 MG TABLET PO SCH ×2 (08:54→20:59)
[2019-09-30] MEDS: carvediloL 3.125 MG TABLET PO SCH ×2 (08:54→16:31)
[2019-09-30] MEDS: PANTOPRAZOLE 40 MG TABLET PO SCH (08:54)
[2019-09-30] MEDS: LORazepam 1 MG TABLET PO SCH ×2 (08:54→20:58)
[2019-09-30] MEDS: POTASSIUM CHLORIDE 20 MEQ TABLET PO PRN ×3 (08:55→16:31)
[2019-09-30] MEDS ORDERED: Empagliflozin [Jardiance] 25 MG PO SCH (09:00)
[2019-09-30] MEDS ORDERED: Dulaglutide [Trulicity] 1.5 MG SUBCUT SCH (14:19)
[2019-09-30] MEDS: ATORVASTATIN 40 MG TABLET PO SCH (20:58)
[2019-09-30] MEDS: MONTELUKAST 10 MG TABLET PO SCH (20:59)
[2019-09-30] MEDS: DOCUSATE SODIUM 100 MG CAPSULE PO SCH (20:59)
[2019-09-30] MEDS: LORATADINE 10 MG TABLET PO SCH (20:59)
[2019-09-30] MEDS: TEMAZEPAM 15 MG CAPSULE PO PRN (21:00)
[2019-10-01 04:53] LABS: Calcium 9.3 MG/DL (8.5-10.1); Osmolality,Calculated 281.8 MOS/KG (273-304)
[2019-10-01 05:28] LABS: Basophils # 0.1 10*3/uL (0.0-0.2); Basophils % 0.8 % (0.0-0.8); Eosinophils # 0.2 10*3/uL (0.0-0.87); Eosinophils % 3.2 % (0.00-10.9); Hematocrit 40.4 VOL% (42.0-52.0); Hemoglobin 11.1 GM/DL (14.0-18.0); Immature Granulocytes % 0.2 %; Immature Granulocytes Absolute 0.01 #; Lymphocytes # 0.8 10*3/uL (1.4-4.0); Lymphocytes % 12.2 % (21.2-54.2); Mean Corpuscular HGB Conc 27.5 GM/DL (32-36); Mean Corpuscular Volume 71.6 FL (87-102); Mean Platelet Volume 10.1 FL (9.6-12.0); Monocytes % 12.2 % (1.7-12.7); NRBC # 0.02 10*3/uL; Neutrophils % 71.4 % (38.7-73.9); Platelet Count 268 T/CUMM (130-400); Red Blood Count 5.64 MC/CUMM (3.8-5.5); White Blood Count 6.5 T/CUMM (4-12)
[2019-10-01 05:40] LABS: Hypochromasia 1+; Platelet Estimate Adequate
[2019-10-01 05:41] LABS: Microcytosis 1+
[2019-10-01] MEDS: FUROSEMIDE 40 MG/4 ML VIAL IV SCH ×4 (08:17→21:25)
[2019-10-01] MEDS: INSULIN REGULAR 100 UNIT/ML SUBCUT SCH ×2 (08:17→13:04)
[2019-10-01] MEDS: APIXABAN 5 MG TABLET PO SCH ×2 (08:18→21:21)
[2019-10-01] MEDS: TICAGRELOR 90 MG TABLET PO SCH ×2 (08:18→21:22)
[2019-10-01] MEDS: carvediloL 3.125 MG TABLET PO SCH ×2 (08:18→16:33)
[2019-10-01] MEDS: PANTOPRAZOLE 40 MG TABLET PO SCH (08:18)
[2019-10-01] MEDS: PREGABALIN 75 MG CAPSULE PO SCH ×2 (08:18→21:22)
[2019-10-01] MEDS: LORazepam 1 MG TABLET PO SCH ×2 (08:18→21:21)
[2019-10-01] MEDS: allopurinoL 100 MG TABLET PO SCH ×2 (08:18→21:22)
[2019-10-01] MEDS: INSULIN REGULAR ** CONC 500 UNIT/ML ** 20 ML VIAL SUBCUT SCH ×3 (08:29→17:30)
[2019-10-01] MEDS: metOLazone 5 MG TABLET PO SCH (08:30)
[2019-10-01] MEDS: FLUTICASONE 50 MCG NASAL SPRAY 16 GM BOTTLE BOTH NARES SCH ×2 (08:33→21:28)
[2019-10-01] MEDS ORDERED: metOLazone 5 MG TABLET PO SCH (09:00)
[2019-10-01] MEDS: POTASSIUM CHLORIDE 20 MEQ TABLET PO PRN ×3 (14:00→18:14)
[2019-10-01] MEDS: MONTELUKAST 10 MG TABLET PO SCH (21:22)
[2019-10-01] MEDS: ATORVASTATIN 40 MG TABLET PO SCH (21:22)
[2019-10-01] MEDS: DOCUSATE SODIUM 100 MG CAPSULE PO SCH (21:22)
[2019-10-01] MEDS: LORATADINE 10 MG TABLET PO SCH (21:23)
[2019-10-02 05:28] LABS: Calcium 9.1 MG/DL (8.5-10.1); Osmolality,Calculated 274.2 MOS/KG (273-304)
[2019-10-02 05:44] LABS: Basophils # 0.1 10*3/uL (0.0-0.2); Basophils % 0.6 % (0.0-0.8); Eosinophils # 0.2 10*3/uL (0.0-0.87); Eosinophils % 2.4 % (0.00-10.9); Hematocrit 40.1 VOL% (42.0-52.0); Immature Granulocytes % 0.4 %; Immature Granulocytes Absolute 0.03 #; Lymphocytes # 0.7 10*3/uL (1.4-4.0); Mean Corpuscular HGB Conc 26.9 GM/DL (32-36); Mean Corpuscular Volume 72.1 FL (87-102); Mean Platelet Volume 9.7 FL (9.6-12.0); NRBC # 0.03 10*3/uL; Neutrophils % 76.6 % (38.7-73.9); Platelet Count 270 T/CUMM (130-400); Red Blood Count 5.56 MC/CUMM (3.8-5.5); Red Cell Distribution Width 23.8 % (9.3-17.3); White Blood Count 8.3 T/CUMM (4-12)
[2019-10-02 05:46] LABS: Hemoglobin 10.8 GM/DL (14.0-18.0)
[2019-10-02 05:53] LABS: Anisocytosis Slight; Hypochromasia 1+; Microcytosis Slight; Platelet Estimate Adequate
[2019-10-02] MEDS: INSULIN REGULAR ** CONC 500 UNIT/ML ** 20 ML VIAL SUBCUT SCH ×3 (08:49→17:21)
[2019-10-02] MEDS: PREGABALIN 75 MG CAPSULE PO SCH ×2 (09:22→22:36)
[2019-10-02] MEDS: allopurinoL 100 MG TABLET PO SCH ×2 (09:23→22:36)
[2019-10-02] MEDS: carvediloL 3.125 MG TABLET PO SCH ×2 (09:23→17:18)
[2019-10-02] MEDS: APIXABAN 5 MG TABLET PO SCH ×2 (09:23→22:36)
[2019-10-02] MEDS: TICAGRELOR 90 MG TABLET PO SCH ×2 (09:23→22:36)
[2019-10-02] MEDS: metOLazone 5 MG TABLET PO SCH (09:24)
[2019-10-02] MEDS: PANTOPRAZOLE 40 MG TABLET PO SCH (09:24)
[2019-10-02] MEDS: FLUTICASONE 50 MCG NASAL SPRAY 16 GM BOTTLE BOTH NARES SCH ×2 (09:24→22:41)
[2019-10-02] MEDS: FUROSEMIDE 40 MG/4 ML VIAL IV SCH ×3 (09:24→22:36)
[2019-10-02] MEDS: LORazepam 1 MG TABLET PO SCH ×2 (09:24→22:36)
[2019-10-02] MEDS ORDERED: POTASSIUM CHLORIDE 20 MEQ TABLET PO ONE (10:10)
[2019-10-02] MEDS: DOCUSATE SODIUM 100 MG CAPSULE PO SCH ×2 (11:29→22:36)
[2019-10-02] MEDS: POLYETHYLENE GLYCOL POWDER 17 GM PACK PO SCH (11:31)
[2019-10-02] MEDS: ATORVASTATIN 40 MG TABLET PO SCH (22:34)
[2019-10-02] MEDS: LORATADINE 10 MG TABLET PO SCH (22:36)
[2019-10-02] MEDS: MONTELUKAST 10 MG TABLET PO SCH (22:36)
[2019-10-03 05:27] LABS: Basophils # 0.1 10*3/uL (0.0-0.2); Basophils % 0.8 % (0.0-0.8); Eosinophils # 0.2 10*3/uL (0.0-0.87); Eosinophils % 2.5 % (0.00-10.9); Hematocrit 41.3 VOL% (42.0-52.0); Immature Granulocytes % 0.4 %; Immature Granulocytes Absolute 0.03 #; Lymphocytes # 0.8 10*3/uL (1.4-4.0); Lymphocytes % 10.6 % (21.2-54.2); Mean Corpuscular HGB Conc 27.1 GM/DL (32-36); Mean Platelet Volume 9.5 FL (9.6-12.0); Monocytes % 14.1 % (1.7-12.7); NRBC # 0.02 10*3/uL; Neutrophils % 71.6 % (38.7-73.9); Platelet Count 285 T/CUMM (130-400); Red Blood Count 5.74 MC/CUMM (3.8-5.5); Red Cell Distribution Width 23.9 % (9.3-17.3); White Blood Count 7.5 T/CUMM (4-12)
[2019-10-03 05:42] LABS: Calcium 9.1 MG/DL (8.5-10.1); Osmolality,Calculated 270.2 MOS/KG (273-304)
[2019-10-03 06:11] LABS: Hemoglobin 11.3 GM/DL (14.0-18.0)
[2019-10-03 06:16] LABS: Hypochromasia 1+; Microcytosis Slight; Ovalocytes Slight; Platelet Estimate Adequate
[2019-10-03] MEDS ORDERED: POTASSIUM CHLORIDE 20 MEQ TABLET PO ONE ×3 (07:29→12:56)
[2019-10-03] MEDS: POLYETHYLENE GLYCOL POWDER 17 GM PACK PO SCH (08:57)
[2019-10-03] MEDS: metOLazone 5 MG TABLET PO SCH (08:58)
[2019-10-03] MEDS: APIXABAN 5 MG TABLET PO SCH ×2 (08:58→20:58)
[2019-10-03] MEDS: LORazepam 1 MG TABLET PO SCH ×2 (08:58→20:55)
[2019-10-03] MEDS: TICAGRELOR 90 MG TABLET PO SCH ×2 (08:59→20:55)
[2019-10-03] MEDS: PREGABALIN 75 MG CAPSULE PO SCH ×2 (08:59→20:57)
[2019-10-03] MEDS: allopurinoL 100 MG TABLET PO SCH ×2 (08:59→20:56)
[2019-10-03] MEDS: carvediloL 3.125 MG TABLET PO SCH ×2 (08:59→16:49)
[2019-10-03] MEDS: DOCUSATE SODIUM 100 MG CAPSULE PO SCH ×2 (08:59→20:57)
[2019-10-03] MEDS: PANTOPRAZOLE 40 MG TABLET PO SCH (08:59)
[2019-10-03] MEDS ORDERED: POTASSIUM CHLORIDE 20 MEQ TABLET PO SCH (09:00)
[2019-10-03] MEDS: FUROSEMIDE 40 MG/4 ML VIAL IV SCH ×2 (09:01→16:50)
[2019-10-03] MEDS: INSULIN REGULAR ** CONC 500 UNIT/ML ** 20 ML VIAL SUBCUT SCH ×3 (09:02→16:49)
[2019-10-03] MEDS: FLUTICASONE 50 MCG NASAL SPRAY 16 GM BOTTLE BOTH NARES SCH ×2 (09:02→20:57)
[2019-10-03] MEDS ORDERED: SPIRONOLACTONE 25 MG TABLET PO SCH (12:57)
[2019-10-03] MEDS: LORATADINE 10 MG TABLET PO SCH (20:55)
[2019-10-03] MEDS: POTASSIUM CHLORIDE 20 MEQ TABLET PO SCH (20:55)
[2019-10-03] MEDS: ATORVASTATIN 40 MG TABLET PO SCH (20:56)
[2019-10-03] MEDS: MONTELUKAST 10 MG TABLET PO SCH (20:57)
[2019-10-03] MEDS: TEMAZEPAM 15 MG CAPSULE PO PRN (21:07)
[2019-10-04 06:40] LABS: Calcium 9.5 MG/DL (8.5-10.1); Osmolality,Calculated 267.4 MOS/KG (273-304)
[2019-10-04 06:49] LABS: Basophils # 0.1 10*3/uL (0.0-0.2); Basophils % 0.7 % (0.0-0.8); Eosinophils # 0.2 10*3/uL (0.0-0.87); Hemoglobin 11.5 GM/DL (14.0-18.0); Immature Granulocytes % 0.2 %; Immature Granulocytes Absolute 0.02 #; Lymphocytes # 0.8 10*3/uL (1.4-4.0); Lymphocytes % 9.1 % (21.2-54.2); Mean Corpuscular HGB Conc 27.4 GM/DL (32-36); Mean Corpuscular Volume 72.4 FL (87-102); Mean Platelet Volume 10.3 FL (9.6-12.0); Monocytes % 11.6 % (1.7-12.7); Neutrophils % 76.4 % (38.7-73.9); Platelet Count 268 T/CUMM (130-400); Red Cell Distribution Width 23.8 % (9.3-17.3); White Blood Count 8.9 T/CUMM (4-12)
[2019-10-04] MEDS ORDERED: MAGNESIUM HYDROXIDE SUSP 30 ML UDCUP PO ONE (09:25)
[2019-10-04 09:52] LABS: Elliptocytes Few; Hypochromasia 4+; Microcytosis 3+; Ovalocytes Few; Polychromasia Few; Schistocytes Slight
[2019-10-04 09:53] LABS: Platelet Estimate Normal
[2019-10-04] MEDS: POTASSIUM CHLORIDE 20 MEQ TABLET PO SCH ×2 (10:04→20:53)
[2019-10-04] MEDS: POLYETHYLENE GLYCOL POWDER 17 GM PACK PO SCH (10:04)
[2019-10-04] MEDS: PANTOPRAZOLE 40 MG TABLET PO SCH (10:05)
[2019-10-04] MEDS: DOCUSATE SODIUM 100 MG CAPSULE PO SCH ×2 (10:05→20:54)
[2019-10-04] MEDS: LORazepam 1 MG TABLET PO SCH ×2 (10:05→20:54)
[2019-10-04] MEDS: APIXABAN 5 MG TABLET PO SCH ×2 (10:06→20:54)
[2019-10-04] MEDS: TICAGRELOR 90 MG TABLET PO SCH ×2 (10:06→20:54)
[2019-10-04] MEDS: allopurinoL 100 MG TABLET PO SCH ×2 (10:06→20:54)
[2019-10-04] MEDS: SPIRONOLACTONE 25 MG TABLET PO SCH (10:07)
[2019-10-04] MEDS: metOLazone 5 MG TABLET PO SCH (10:07)
[2019-10-04] MEDS: carvediloL 3.125 MG TABLET PO SCH (10:08)
[2019-10-04] MEDS: FUROSEMIDE 40 MG/4 ML VIAL IV SCH ×2 (10:09→17:40)
[2019-10-04] MEDS: PREGABALIN 75 MG CAPSULE PO SCH ×2 (10:09→20:54)
[2019-10-04] MEDS: FLUTICASONE 50 MCG NASAL SPRAY 16 GM BOTTLE BOTH NARES SCH ×2 (10:09→20:54)
[2019-10-04] MEDS: INSULIN REGULAR ** CONC 500 UNIT/ML ** 20 ML VIAL SUBCUT SCH ×3 (10:10→17:41)
[2019-10-04] MEDS: carvediloL 6.25 MG TABLET PO SCH (17:40)
[2019-10-04] MEDS: LORATADINE 10 MG TABLET PO SCH (20:53)
[2019-10-04] MEDS: MONTELUKAST 10 MG TABLET PO SCH (20:54)
[2019-10-04] MEDS: ATORVASTATIN 40 MG TABLET PO SCH (20:54)
[2019-10-04] MEDS: TEMAZEPAM 15 MG CAPSULE PO PRN (23:57)
[2019-10-05 03:45] LABS: Basophils # 0.1 10*3/uL (0.0-0.2); Basophils % 0.6 % (0.0-0.8); Eosinophils # 0.2 10*3/uL (0.0-0.87); Eosinophils % 2.2 % (0.00-10.9); Hematocrit 39.7 VOL% (42.0-52.0); Immature Granulocytes % 0.2 %; Immature Granulocytes Absolute 0.02 #; Lymphocytes # 0.9 10*3/uL (1.4-4.0); Lymphocytes % 10.6 % (21.2-54.2); Mean Corpuscular HGB Conc 27.5 GM/DL (32-36); Mean Corpuscular Volume 71.5 FL (87-102); Monocytes % 11.3 % (1.7-12.7); Neutrophils % 75.1 % (38.7-73.9); Platelet Count 304 T/CUMM (130-400); Red Blood Count 5.55 MC/CUMM (3.8-5.5); Red Cell Distribution Width 23.7 % (9.3-17.3); White Blood Count 8.5 T/CUMM (4-12)
[2019-10-05 03:58] LABS: Osmolality,Calculated 266.4 MOS/KG (273-304)
[2019-10-05 04:17] LABS: Hemoglobin 10.9 GM/DL (14.0-18.0)
[2019-10-05 06:26] LABS: Anisocytosis 1+; Ovalocytes 1+; Platelet Estimate Normal
[2019-10-05] MEDS: POLYETHYLENE GLYCOL POWDER 17 GM PACK PO SCH (09:23)
[2019-10-05] MEDS: FUROSEMIDE 40 MG/4 ML VIAL IV SCH ×2 (09:23→16:01)
[2019-10-05] MEDS: APIXABAN 5 MG TABLET PO SCH ×2 (09:24→20:22)
[2019-10-05] MEDS: POTASSIUM CHLORIDE 20 MEQ TABLET PO SCH ×2 (09:24→20:21)
[2019-10-05] MEDS: allopurinoL 100 MG TABLET PO SCH ×2 (09:24→20:22)
[2019-10-05] MEDS: SPIRONOLACTONE 25 MG TABLET PO SCH (09:25)
[2019-10-05] MEDS: PREGABALIN 75 MG CAPSULE PO SCH ×2 (09:25→20:22)
[2019-10-05] MEDS: DOCUSATE SODIUM 100 MG CAPSULE PO SCH ×2 (09:25→20:22)
[2019-10-05] MEDS: metOLazone 5 MG TABLET PO SCH (09:25)
[2019-10-05] MEDS: TICAGRELOR 90 MG TABLET PO SCH ×2 (09:25→20:22)
[2019-10-05] MEDS: PANTOPRAZOLE 40 MG TABLET PO SCH (09:25)
[2019-10-05] MEDS: LORazepam 1 MG TABLET PO SCH ×2 (09:25→20:22)
[2019-10-05] MEDS: carvediloL 6.25 MG TABLET PO SCH ×2 (09:25→16:02)
[2019-10-05] MEDS: FLUTICASONE 50 MCG NASAL SPRAY 16 GM BOTTLE BOTH NARES SCH ×2 (09:26→20:22)
[2019-10-05] MEDS: INSULIN REGULAR ** CONC 500 UNIT/ML ** 20 ML VIAL SUBCUT SCH ×3 (09:26→16:02)
[2019-10-05] MEDS: MAGNESIUM OXIDE 400 MG TABLET PO SCH ×3 (09:28→21:42)
[2019-10-05] MEDS ORDERED: POTASSIUM CHLORIDE 20 MEQ TABLET PO ONE (14:13)
[2019-10-05] MEDS ORDERED: COLCHICINE 0.6 MG CAPSULE PO ONE (15:18)
[2019-10-05] MEDS: ATORVASTATIN 40 MG TABLET PO SCH (20:21)
[2019-10-05] MEDS: LORATADINE 10 MG TABLET PO SCH (20:21)
[2019-10-05] MEDS: MONTELUKAST 10 MG TABLET PO SCH (20:22)
[2019-10-06 06:01] LABS: Calcium 9.2 MG/DL (8.5-10.1); Osmolality,Calculated 278.1 MOS/KG (273-304)
[2019-10-06 06:19] LABS: Basophils # 0.1 10*3/uL (0.0-0.2); Basophils % 0.6 % (0.0-0.8); Eosinophils # 0.2 10*3/uL (0.0-0.87); Eosinophils % 2.3 % (0.00-10.9); Hematocrit 37.2 VOL% (42.0-52.0); Hemoglobin 10.5 GM/DL (14.0-18.0); Immature Granulocytes % 0.2 %; Immature Granulocytes Absolute 0.02 #; Lymphocytes # 0.7 10*3/uL (1.4-4.0); Lymphocytes % 8.9 % (21.2-54.2); Mean Corpuscular HGB Conc 28.2 GM/DL (32-36); Mean Corpuscular Volume 70.7 FL (87-102); Mean Platelet Volume 10.4 FL (9.6-12.0); Platelet Count 258 T/CUMM (130-400); Red Blood Count 5.26 MC/CUMM (3.8-5.5); Red Cell Distribution Width 23.3 % (9.3-17.3); White Blood Count 8.3 T/CUMM (4-12)
[2019-10-06 06:27] LABS: Hypochromasia 1+; Microcytosis 1+; Ovalocytes Slight; Platelet Estimate Adequate
[2019-10-06] MEDS: INSULIN REGULAR ** CONC 500 UNIT/ML ** 20 ML VIAL SUBCUT SCH ×3 (08:51→15:56)
[2019-10-06] MEDS: MAGNESIUM OXIDE 400 MG TABLET PO SCH ×3 (09:29→21:04)
[2019-10-06] MEDS: LORazepam 1 MG TABLET PO SCH ×2 (09:29→21:04)
[2019-10-06] MEDS: POTASSIUM CHLORIDE 20 MEQ TABLET PO SCH ×2 (09:29→21:04)
[2019-10-06] MEDS: DOCUSATE SODIUM 100 MG CAPSULE PO SCH ×2 (09:30→21:03)
[2019-10-06] MEDS: allopurinoL 100 MG TABLET PO SCH ×2 (09:30→21:03)
[2019-10-06] MEDS: metOLazone 5 MG TABLET PO SCH (09:30)
[2019-10-06] MEDS: PREGABALIN 75 MG CAPSULE PO SCH ×2 (09:31→21:04)
[2019-10-06] MEDS: TICAGRELOR 90 MG TABLET PO SCH ×2 (09:31→21:04)
[2019-10-06] MEDS: POLYETHYLENE GLYCOL POWDER 17 GM PACK PO SCH (09:31)
[2019-10-06] MEDS: PANTOPRAZOLE 40 MG TABLET PO SCH (09:31)
[2019-10-06] MEDS: carvediloL 6.25 MG TABLET PO SCH ×2 (09:31→16:00)
[2019-10-06] MEDS: APIXABAN 5 MG TABLET PO SCH ×2 (09:31→21:04)
[2019-10-06] MEDS: SPIRONOLACTONE 25 MG TABLET PO SCH (09:32)
[2019-10-06] MEDS: FUROSEMIDE 40 MG/4 ML VIAL IV SCH (09:32)
[2019-10-06] MEDS: FLUTICASONE 50 MCG NASAL SPRAY 16 GM BOTTLE BOTH NARES SCH ×2 (09:41→21:07)
[2019-10-06] MEDS ORDERED: methylPREDNISolone SOD SUC 40 MG/1 ML VIAL IV ONE (09:43)
[2019-10-06] MEDS: COLCHICINE 0.6 MG CAPSULE PO SCH ×2 (11:32→21:03)
[2019-10-06] MEDS: DOXYCYCLINE HYCLATE 100 MG CAPSULE PO SCH ×2 (11:32→21:03)
[2019-10-06] MEDS: FUROSEMIDE 80 MG TABLET PO SCH (15:52)
[2019-10-06] MEDS: LORATADINE 10 MG TABLET PO SCH (21:03)
[2019-10-06] MEDS: ATORVASTATIN 40 MG TABLET PO SCH (21:03)
[2019-10-06] MEDS: MONTELUKAST 10 MG TABLET PO SCH (21:04)
[2019-10-07 03:02] LABS: Basophils # 0.1 10*3/uL (0.0-0.2); Basophils % 0.5 % (0.0-0.8); Eosinophils # 0.1 10*3/uL (0.0-0.87); Eosinophils % 0.5 % (0.00-10.9); Hematocrit 36.9 VOL% (42.0-52.0); Immature Granulocytes % 0.2 %; Immature Granulocytes Absolute 0.02 #; Lymphocytes # 0.7 10*3/uL (1.4-4.0); Lymphocytes % 7.2 % (21.2-54.2); Mean Corpuscular HGB Conc 27.6 GM/DL (32-36); Mean Corpuscular Volume 71.4 FL (87-102); Mean Platelet Volume 10.6 FL (9.6-12.0); Monocytes % 11.5 % (1.7-12.7); Neutrophils % 80.1 % (38.7-73.9); Platelet Count 299 T/CUMM (130-400); Red Blood Count 5.17 MC/CUMM (3.8-5.5); Red Cell Distribution Width 23.3 % (9.3-17.3); White Blood Count 9.9 T/CUMM (4-12)
[2019-10-07 03:17] LABS: Calcium 9.6 MG/DL (8.5-10.1); Osmolality,Calculated 272.8 MOS/KG (273-304)
[2019-10-07 03:59] LABS: Hemoglobin 10.2 GM/DL (14.0-18.0)
[2019-10-07 04:06] LABS: Anisocytosis 1+; Ovalocytes 1+; Platelet Estimate Normal
[2019-10-07] MEDS: INSULIN REGULAR ** CONC 500 UNIT/ML ** 20 ML VIAL SUBCUT SCH (08:15)
[2019-10-07] MEDS ORDERED: methylPREDNISolone SOD SUC 40 MG/1 ML VIAL IV ONE (08:48)
[2019-10-07] MEDS ORDERED: KETOROLAC 30 MG/1 ML VIAL IV ONE (08:48)
[2019-10-07] MEDS: SPIRONOLACTONE 25 MG TABLET PO SCH (09:49)
[2019-10-07] MEDS: COLCHICINE 0.6 MG CAPSULE PO SCH (09:50)
[2019-10-07] MEDS: PREGABALIN 75 MG CAPSULE PO SCH (09:50)
[2019-10-07] MEDS: APIXABAN 5 MG TABLET PO SCH (09:50)
[2019-10-07] MEDS: LORazepam 1 MG TABLET PO SCH (09:50)
[2019-10-07] MEDS: MAGNESIUM OXIDE 400 MG TABLET PO SCH (09:50)
[2019-10-07] MEDS: POTASSIUM CHLORIDE 20 MEQ TABLET PO SCH (09:50)
[2019-10-07] MEDS: FUROSEMIDE 80 MG TABLET PO SCH (09:50)
[2019-10-07] MEDS: TICAGRELOR 90 MG TABLET PO SCH (09:51)
[2019-10-07] MEDS: PANTOPRAZOLE 40 MG TABLET PO SCH (09:51)
[2019-10-07] MEDS: allopurinoL 100 MG TABLET PO SCH (09:51)
[2019-10-07] MEDS: metOLazone 5 MG TABLET PO SCH (09:51)
[2019-10-07] MEDS: DOCUSATE SODIUM 100 MG CAPSULE PO SCH (09:51)
[2019-10-07] MEDS: carvediloL 6.25 MG TABLET PO SCH (09:51)
[2019-10-07] MEDS: POLYETHYLENE GLYCOL POWDER 17 GM PACK PO SCH (09:55)
[2019-10-07] MEDS: DOXYCYCLINE HYCLATE 100 MG CAPSULE PO SCH (10:08)
[2019-10-07] MEDS: FLUTICASONE 50 MCG NASAL SPRAY 16 GM BOTTLE BOTH NARES SCH (10:08)
[2019-10-07 12:21] VITALS: BP 118/56
== END 2019-10-07 13:07 | disposition home or self-care (01) | DRG 291 ==
LOC: N.ED 10:47 → SUATTDRO 14:08 → N.EDINP 14:08 → N.TELES 09-30 11:35
PROVIDERS: ADMIT Internal Medicine; ATTEND Family Medicine

== ENCOUNTER 2020-01-18 19:39 | Inpatient (IN) ==
[2020-01-18 20:13] LABS: Basophils % 0.1 % (0.0-0.8); Eosinophils # 0.1 10*3/uL (0.0-0.87); Eosinophils % 0.4 % (0.00-10.9); Hemoglobin 11.5 GM/DL (14.0-18.0); Immature Granulocytes % 0.5 %; Immature Granulocytes Absolute 0.07 #; Lymphocytes # 0.4 10*3/uL (1.4-4.0); Lymphocytes % 2.7 % (21.2-54.2); Mean Corpuscular HGB Conc 29.5 GM/DL (32-36); Mean Corpuscular Volume 76.6 FL (87-102); Mean Platelet Volume 10.4 FL (9.6-12.0); Monocytes % 5.3 % (1.7-12.7); Platelet Count 248 T/CUMM (130-400); Red Blood Count 5.09 MC/CUMM (3.8-5.5); Red Cell Distribution Width 20.8 % (9.3-17.3); White Blood Count 14.3 T/CUMM (4-12)
[2020-01-18 20:20] LABS: INR 1.3; PT Patient Result 13.7 SECS (9.8-11.9); Partial Thromboplastin Time 29.5 SECS (23.9-33.8)
[2020-01-18 20:32] LABS: Anisocytosis 1+; Elliptocytes Few; Hypochromasia 2+; Lymphocytes 1 % (20-55); Segmented Neutrophils 94 % (50-85); Total Cells Counted 100
[2020-01-18 20:33] LABS: Platelet Estimate Adequate; Polychromasia Few
[2020-01-18 20:36] LABS: Alanine Aminotransferase 33 U/L (16-61); Albumin 2.5 G/DL (3.4-5.0); Alkaline Phosphatase 71 U/L (45-117); Aspartate Amino Transferase 73 U/L (0-37); Blood Urea Nitrogen 64 MG/DL (7-18); Calcium 10.1 MG/DL (8.5-10.1); Estimated Glom Filtration Rate 76 ML/MIN; Glucose 175 MG/DL (74-106); Osmolality,Calculated 276.2 MOS/KG (273-304); Total Protein 8.2 G/DL (6.4-8.3)
[2020-01-18] MEDS ORDERED: DEXTROSE 50% 25 GM/50 ML VIAL IV PRN (23:37)
[2020-01-18] MEDS ORDERED: NICOTINE 21 MG/24 HR PATCH TRANSDERM PRN (23:37)
[2020-01-18] MEDS ORDERED: GLUCAGON 1 MG VIAL IM PRN (23:37)
[2020-01-18] MEDS ORDERED: guaiFENesin/DM ER 600-30 MG TABLET PO PRN (23:37)
[2020-01-18] MEDS ORDERED: diphenhydrAMINE CAP 25 MG CAPSULE PO PRN (23:37)
[2020-01-18] MEDS ORDERED: hydrALAZINE 20 MG/1 ML VIAL IV PRN (23:37)
[2020-01-18 23:53] LABS: Bilirubin,Urine Negative (Negative); Blood, Urine Negative (Negative); Glucose,Urine (UA) Negative (Negative); Hyaline Casts,Urine 16 /LPF (0-3); Ketones,Urine Negative (Negative); Mucus,Urine Occasional /LPF (Occasional); Nitrite,Urine Negative (Negative); Protein,Urine Negative; RBC,Urine 1 /HPF (0-4); Squamous Epithelial Cell,Urine Occasional /HPF (0-10); Urine Appearance CLEAR (Clear); Urine Color Yellow (Yellow); Urine Specific Gravity 1.013 (1.001-1.035); Urine Urobilinogen < 2.0 EU/DL (0.2-1.0)
[2020-01-18] MEDS ORDERED: VANCOMYCIN 1,000 MG VIAL ONE (23:57)
[2020-01-19] MEDS: ALBUTEROL/IPRATROPIUM 3 ML NEB RESP TX SCH ×4 (00:22→19:45)
[2020-01-19 00:31] LABS: ABG Base Excess 9.4 MMOL/L (-2.5-2.5); ABG HCO3 33.2 MMOL/L (20-26); ABG Oxygen Saturation 98.7 % (95-100); ABG PH 7.404 (7.35-7.45); ABG TCO2 32.3 MMOL/L (23-27)
[2020-01-19] MEDS ORDERED: VANCOMYCIN INJ 1,000 MG in SODIUM CHLORIDE 0.9% 250 ML IV STA (02:01)
[2020-01-19] MEDS: MORPHINE 4 MG/1 ML VIAL IV PRN ×4 (02:51→22:05)
[2020-01-19] MEDS: ONDANSETRON 4 MG/2 ML VIAL IV PRN (02:51)
[2020-01-19] MEDS ORDERED: LABETALOL 20 MG/4 ML SYRINGE IV STA (02:57)
[2020-01-19] MEDS ORDERED: FUROSEMIDE 20 MG/2 ML VIAL ONE (03:03)
[2020-01-19] MEDS ORDERED: FUROSEMIDE 20 MG/2 ML VIAL IV STA (03:10)
[2020-01-19] MEDS: INSULIN REGULAR 100 UNIT/ML SUBCUT SCH ×4 (06:37→22:03)
[2020-01-19 07:39] LABS: Allen Test Positive
[2020-01-19 07:41] LABS: ABG Base Excess 6.3 MMOL/L (-2.5-2.5); ABG HCO3 35.5 MMOL/L (20-26); ABG Oxygen Saturation 97.9 % (95-100); ABG PH 7.275 (7.35-7.45); ABG PO2 117.2 MM HG (80-95); ABG TCO2 37.9 MMOL/L (23-27)
[2020-01-19 07:44] LABS: ABG PCO2 78.2 MM HG (35-48)
[2020-01-19 08:57] LABS: Albumin 2.5 G/DL (3.4-5.0); Bilirubin,Total 0.8 MG/DL (0.2-1.0); Calcium 10.1 MG/DL (8.5-10.1); Osmolality,Calculated 286.8 MOS/KG (273-304); Total Protein 7.8 G/DL (6.4-8.3)
[2020-01-19 09:09] LABS: Basophils % 0.2 % (0.0-0.8); Eosinophils # 0.1 10*3/uL (0.0-0.87); Eosinophils % 0.6 % (0.00-10.9); Hematocrit 38.6 VOL% (42.0-52.0); Hemoglobin 11.2 GM/DL (14.0-18.0); Immature Granulocytes % 0.5 %; Immature Granulocytes Absolute 0.06 #; Lymphocytes # 0.3 10*3/uL (1.4-4.0); Lymphocytes % 2.5 % (21.2-54.2); Mean Corpuscular Volume 77.8 FL (87-102); Mean Platelet Volume 10.1 FL (9.6-12.0); Neutrophils % 90.2 % (38.7-73.9); Platelet Count 240 T/CUMM (130-400); Red Blood Count 4.96 MC/CUMM (3.8-5.5); Red Cell Distribution Width 20.3 % (9.3-17.3); White Blood Count 11.1 T/CUMM (4-12)
[2020-01-19] MEDS: VANCOMYCIN INJ 2,500 MG in SODIUM CHLORIDE 0.9% 500 ML IV SCH (09:11)
[2020-01-19 09:14] LABS: Hypochromasia 1+; Lymphocytes 2 % (20-55); Microcytosis 1+; Platelet Estimate Adequate; Segmented Neutrophils 93 % (50-85); Total Cells Counted 100
[2020-01-19] MEDS: TICAGRELOR 90 MG TABLET PO SCH ×2 (17:02→21:39)
[2020-01-19] MEDS: METOPROLOL SUCCINATE XL 25 MG TABLET PO SCH (20:57)
[2020-01-19] MEDS: TORSEMIDE 20 MG TABLET PO SCH (21:39)
[2020-01-19] MEDS: metOLazone 5 MG TABLET PO SCH (22:09)
[2020-01-19] MEDS: ROSUVASTATIN 20 MG TABLET PO SCH (22:15)
[2020-01-20] MEDS: ALBUTEROL/IPRATROPIUM 3 ML NEB RESP TX SCH ×4 (00:05→19:30)
[2020-01-20] MEDS ORDERED: ALBUTEROL/IPRATROPIUM 3 ML NEB RESP TX PRN (01:56)
[2020-01-20] MEDS: MORPHINE 4 MG/1 ML VIAL IV PRN (02:12)
[2020-01-20 06:04] LABS: Calcium 10.1 MG/DL (8.5-10.1); Osmolality,Calculated 293.1 MOS/KG (273-304)
[2020-01-20 06:08] LABS: Calcium 10.2 MG/DL (8.5-10.1); Osmolality,Calculated 290.2 MOS/KG (273-304)
[2020-01-20 06:20] LABS: Basophils % 0.4 % (0.0-0.8); Eosinophils # 0.1 10*3/uL (0.0-0.87); Eosinophils % 0.9 % (0.00-10.9); Hematocrit 39.3 VOL% (42.0-52.0); Immature Granulocytes % 0.4 %; Immature Granulocytes Absolute 0.05 #; Lymphocytes # 0.3 10*3/uL (1.4-4.0); Lymphocytes % 2.7 % (21.2-54.2); Mean Corpuscular Volume 77.4 FL (87-102); Mean Platelet Volume 10.9 FL (9.6-12.0); Monocytes % 8.5 % (1.7-12.7); NRBC # 0.04 10*3/uL; Neutrophils % 87.1 % (38.7-73.9); Platelet Count 259 T/CUMM (130-400); Red Blood Count 5.08 MC/CUMM (3.8-5.5); Red Cell Distribution Width 20.6 % (9.3-17.3); White Blood Count 11.1 T/CUMM (4-12)
[2020-01-20 06:21] LABS: Hemoglobin 11.4 GM/DL (14.0-18.0)
[2020-01-20 06:25] LABS: Hypochromasia 1+; Lymphocytes 3 % (20-55); Microcytosis 1+; Nucleated Red Blood Cells 1 (0-5); Ovalocytes Slight; Platelet Estimate Adequate; Segmented Neutrophils 89 % (50-85); Total Cells Counted 100
[2020-01-20] MEDS: TICAGRELOR 90 MG TABLET PO SCH ×2 (08:30→20:22)
[2020-01-20] MEDS: METOPROLOL SUCCINATE XL 25 MG TABLET PO SCH (08:30)
[2020-01-20] MEDS: TORSEMIDE 20 MG TABLET PO SCH ×2 (08:30→16:00)
[2020-01-20] MEDS: metOLazone 5 MG TABLET PO SCH (08:31)
[2020-01-20] MEDS: INSULIN REGULAR 100 UNIT/ML SUBCUT SCH ×4 (08:42→20:18)
[2020-01-20] MEDS: VANCOMYCIN INJ 2,500 MG in SODIUM CHLORIDE 0.9% 500 ML IV SCH (08:47)
[2020-01-20] MEDS ORDERED: POTASSIUM CHLORIDE 20 MEQ TABLET PO ONE (09:17)
[2020-01-20] MEDS ORDERED: HydrOXYzine PAMOATE 25 MG CAPSULE PO PRN (09:39)
[2020-01-20] MEDS ORDERED: POLYETHYLENE GLYCOL POWDER 17 GM PACK PO PRN (09:39)
[2020-01-20] MEDS ORDERED: POTASSIUM CHLORIDE 20 MEQ TABLET PO SCH ×2 (10:00→21:00)
[2020-01-20] MEDS: ASPIRIN EC 81 MG TABLET PO SCH (10:10)
[2020-01-20] MEDS: DOCUSATE SODIUM 100 MG CAPSULE PO SCH ×2 (10:10→20:32)
[2020-01-20] MEDS: allopurinoL 100 MG TABLET PO SCH (10:11)
[2020-01-20] MEDS: OMEPRAZOLE ODT 20 MG TABLET PO SCH (10:11)
[2020-01-20] MEDS: LORATADINE 10 MG TABLET PO SCH (10:11)
[2020-01-20] MEDS: ACETAMINOPHEN 325 MG TABLET PO PRN ×2 (10:11→23:46)
[2020-01-20] MEDS: VENLAFAXINE 75 MG TABLET PO SCH ×2 (10:11→20:23)
[2020-01-20] MEDS: oxyCODONE/ACETAMINOPHEN 5-325 MG TABLET PO PRN ×2 (10:12→23:47)
[2020-01-20] MEDS ORDERED: INFLUENZA VIRUS VACCINE 0.5 ML SYRINGE IM ONE (15:04)
[2020-01-20] MEDS: TRIAMCINOLONE 0.1% CREAM 15 GM TUBE TOP SCH ×2 (15:59→20:32)
[2020-01-20] MEDS: INSULIN GLARGINE 100 UNIT/ML SUBCUT SCH (20:20)
[2020-01-20] MEDS: PREGABALIN 75 MG CAPSULE PO SCH (20:23)
[2020-01-20] MEDS: POTASSIUM CHLORIDE 20 MEQ TABLET PO SCH (20:24)
[2020-01-20] MEDS: ROSUVASTATIN 20 MG TABLET PO SCH (20:30)
[2020-01-20] MEDS: MONTELUKAST 10 MG TABLET PO SCH (20:30)
[2020-01-21] MEDS: ONDANSETRON 4 MG/2 ML VIAL IV PRN ×2 (00:53→12:23)
[2020-01-21] MEDS: ALBUTEROL/IPRATROPIUM 3 ML NEB RESP TX SCH ×4 (01:28→20:00)
[2020-01-21 06:47] LABS: Calcium 9.9 MG/DL (8.5-10.1); Osmolality,Calculated 301.8 MOS/KG (273-304)
[2020-01-21 07:20] LABS: Basophils % 0.3 % (0.0-0.8); Eosinophils % 0.1 % (0.00-10.9); Hematocrit 43.7 VOL% (42.0-52.0); Immature Granulocytes % 0.7 %; Lymphocytes # 0.2 10*3/uL (1.4-4.0); Lymphocytes % 1.5 % (21.2-54.2); Mean Corpuscular HGB Conc 28.8 GM/DL (32-36); Mean Corpuscular Volume 78.6 FL (87-102); Mean Platelet Volume 11.1 FL (9.6-12.0); Monocytes % 9.1 % (1.7-12.7); NRBC # 0.08 10*3/uL; Neutrophils % 88.3 % (38.7-73.9); Platelet Count 321 T/CUMM (130-400); Red Blood Count 5.56 MC/CUMM (3.8-5.5); Red Cell Distribution Width 20.9 % (9.3-17.3); White Blood Count 13.7 T/CUMM (4-12)
[2020-01-21 07:22] LABS: Hemoglobin 12.6 GM/DL (14.0-18.0)
[2020-01-21 07:24] LABS: Anisocytosis 1+; Band Neutrophils 2 % (0-10); Eosinophils 1 % (0-10); Hypochromasia 1+; Microcytosis 1+; Polychromasia Slight; Segmented Neutrophils 89 % (50-85); Total Cells Counted 100
[2020-01-21] MEDS: INSULIN REGULAR 100 UNIT/ML SUBCUT SCH ×4 (09:37→21:52)
[2020-01-21 10:30] LABS: ABG Base Excess 4.9 MMOL/L (-2.5-2.5); ABG HCO3 28.7 MMOL/L (20-26); ABG PCO2 68.2 MM HG (35-48); ABG PH 7.303 (7.35-7.45); ABG TCO2 30.1 MMOL/L (23-27)
[2020-01-21 10:31] LABS: Pt O2 Delivery Device Other
[2020-01-21] MEDS: LORazepam 1 MG TABLET PO PRN ×2 (12:22→22:07)
[2020-01-21] MEDS: MORPHINE 4 MG/1 ML VIAL IV PRN (12:23)
[2020-01-21] MEDS: SODIUM CHLORIDE 0.9% 1,000 ML IV SCH ×2 (12:31→23:02)
[2020-01-21 13:36] LABS: Bacteria,Urine Moderate /HPF (Few); Bilirubin,Urine Negative (Negative); Blood, Urine Large mg/dL (Negative); Glucose,Urine (UA) Negative (Negative); Hyaline Casts,Urine 32 /LPF (0-3); Ketones,Urine Negative (Negative); Nitrite,Urine Negative (Negative); Protein,Urine Negative; RBC,Urine 683 /HPF (0-4); Urine Appearance CLOUDY (Clear); Urine Color Amber (Yellow); Urine Specific Gravity 1.014 (1.001-1.035); WBC,Urine 38 /HPF (0-6)
[2020-01-21] MEDS: DOCUSATE SODIUM 100 MG CAPSULE PO SCH ×2 (16:28→21:51)
[2020-01-21] MEDS: allopurinoL 100 MG TABLET PO SCH (16:28)
[2020-01-21] MEDS: METOPROLOL SUCCINATE XL 25 MG TABLET PO SCH (16:29)
[2020-01-21] MEDS: TICAGRELOR 90 MG TABLET PO SCH ×2 (16:29→21:51)
[2020-01-21] MEDS: POTASSIUM CHLORIDE 20 MEQ TABLET PO SCH ×2 (16:29→21:51)
[2020-01-21] MEDS: OMEPRAZOLE ODT 20 MG TABLET PO SCH (16:29)
[2020-01-21] MEDS: ASPIRIN EC 81 MG TABLET PO SCH (16:30)
[2020-01-21] MEDS: VENLAFAXINE 75 MG TABLET PO SCH ×2 (16:30→21:51)
[2020-01-21] MEDS: TRIAMCINOLONE 0.1% CREAM 15 GM TUBE TOP SCH ×2 (16:31→23:02)
[2020-01-21] MEDS: LORATADINE 10 MG TABLET PO SCH (16:38)
[2020-01-21] MEDS: TORSEMIDE 20 MG TABLET PO SCH (16:42)
[2020-01-21] MEDS: MONTELUKAST 10 MG TABLET PO SCH (21:51)
[2020-01-21] MEDS: PREGABALIN 75 MG CAPSULE PO SCH (21:51)
[2020-01-21] MEDS: ROSUVASTATIN 20 MG TABLET PO SCH (21:51)
[2020-01-21] MEDS: INSULIN GLARGINE 100 UNIT/ML SUBCUT SCH (21:52)
[2020-01-22] MEDS: ALBUTEROL/IPRATROPIUM 3 ML NEB RESP TX SCH ×4 (01:48→19:12)
[2020-01-22] MEDS: SODIUM CHLORIDE 0.9% 1,000 ML IV SCH ×2 (04:12→09:00)
[2020-01-22 05:58] LABS: Calcium 10.2 MG/DL (8.5-10.1); Osmolality,Calculated 305.8 MOS/KG (273-304)
[2020-01-22 06:29] LABS: Basophils # 0.1 10*3/uL (0.0-0.2); Basophils % 0.3 % (0.0-0.8); Eosinophils % 0.1 % (0.00-10.9); Immature Granulocytes % 1.6 %; Immature Granulocytes Absolute 0.31 #; Lymphocytes # 0.4 10*3/uL (1.4-4.0); Lymphocytes % 1.8 % (21.2-54.2); Mean Corpuscular HGB Conc 27.7 GM/DL (32-36); Mean Corpuscular Volume 80.1 FL (87-102); Mean Platelet Volume 10.9 FL (9.6-12.0); Monocytes % 6.9 % (1.7-12.7); NRBC # 0.24 10*3/uL; Neutrophils % 89.3 % (38.7-73.9); Platelet Count 307 T/CUMM (130-400); Red Blood Count 5.49 MC/CUMM (3.8-5.5); Red Cell Distribution Width 21.1 % (9.3-17.3); White Blood Count 19.6 T/CUMM (4-12)
[2020-01-22 06:32] LABS: Hemoglobin 12.2 GM/DL (14.0-18.0)
[2020-01-22 06:37] LABS: Lymphocytes 2 % (20-55); Nucleated Red Blood Cells 1 (0-5); Segmented Neutrophils 93 % (50-85); Total Cells Counted 100
[2020-01-22 06:38] LABS: Microcytosis Slight; Platelet Estimate Normal
[2020-01-22] MEDS: INSULIN REGULAR 100 UNIT/ML SUBCUT SCH ×4 (10:10→20:19)
[2020-01-22] MEDS: allopurinoL 100 MG TABLET PO SCH (10:11)
[2020-01-22] MEDS: METOPROLOL SUCCINATE XL 25 MG TABLET PO SCH (10:11)
[2020-01-22] MEDS: LORATADINE 10 MG TABLET PO SCH (10:11)
[2020-01-22] MEDS: TICAGRELOR 90 MG TABLET PO SCH (10:11)
[2020-01-22] MEDS: ASPIRIN EC 81 MG TABLET PO SCH (10:11)
[2020-01-22] MEDS: OMEPRAZOLE ODT 20 MG TABLET PO SCH (10:12)
[2020-01-22] MEDS: POTASSIUM CHLORIDE 20 MEQ TABLET PO SCH (10:12)
[2020-01-22] MEDS: VENLAFAXINE 75 MG TABLET PO SCH (10:12)
[2020-01-22] MEDS: TRIAMCINOLONE 0.1% CREAM 15 GM TUBE TOP SCH (10:13)
[2020-01-22] MEDS: DOCUSATE SODIUM 100 MG CAPSULE PO SCH (10:14)
[2020-01-22] MEDS: LORazepam 1 MG TABLET PO PRN ×2 (10:21→17:32)
[2020-01-22] MEDS ORDERED: METOPROLOL TARTRATE 5 MG/5 ML VIAL IV ONE (15:38)
[2020-01-22] MEDS ORDERED: AMIODARONE INJ 150 MG in DEXTROSE 5% 100 ML IV ONE (17:14)
[2020-01-22] MEDS ORDERED: AMIODARONE INJ 450 MG in DEXTROSE 5% 241 ML IV SCH ×2 (17:30→23:30)
[2020-01-22] MEDS ORDERED: SODIUM BICARBONATE 50 MEQ/50 ML VIAL IV ONE (22:51)
[2020-01-22 22:56] LABS: ABG Base Excess 2.8 MMOL/L (-2.5-2.5); ABG HCO3 26.8 MMOL/L (20-26); ABG Oxygen Saturation 92.3 % (95-100); ABG PO2 87.7 MM HG (80-95); ABG TCO2 35.2 MMOL/L (23-27)
[2020-01-22 22:59] LABS: ABG PH 7.111 (7.35-7.45)
[2020-01-22] MEDS ORDERED: MORPHINE 4 MG/1 ML VIAL IV PRN (23:43)
[2020-01-23 00:09] VITALS: BP 92/35
[2020-01-23] MEDS: DOCUSATE SODIUM 100 MG CAPSULE PO SCH (05:03)
[2020-01-23] MEDS: TICAGRELOR 90 MG TABLET PO SCH (05:03)
[2020-01-23] MEDS: ROSUVASTATIN 20 MG TABLET PO SCH (05:03)
[2020-01-23] MEDS: VENLAFAXINE 75 MG TABLET PO SCH (05:03)
[2020-01-23] MEDS: TRIAMCINOLONE 0.1% CREAM 15 GM TUBE TOP SCH (05:04)
[2020-01-23] MEDS: POTASSIUM CHLORIDE 20 MEQ TABLET PO SCH (05:04)
[2020-01-23] MEDS: PREGABALIN 75 MG CAPSULE PO SCH (05:05)
[2020-01-23] MEDS: MONTELUKAST 10 MG TABLET PO SCH (05:05)
[2020-01-23] MEDS: SODIUM CHLORIDE 0.9% 1,000 ML IV SCH (05:10)
== END 2020-01-23 00:17 | disposition expired | DRG 602 ==
LOC: EDBD → EDUNIT# → N.ED 19:39 → N.EDINP 01-19 02:18 → N.TELES 01-19 19:10
PROVIDERS: ADMIT Family Medicine; ATTEND Family Medicine